=== PATIENT | male | born 1940 | race Caucasian/White ===

== ENCOUNTER 2016-05-06 12:29 | Emergency (ER) | payer MEDICARE, OTHER ==
[2016-05-06] MEDS ORDERED: ASPIRIN 81 MG CHEW TABLET As Ordered ONE (13:42)
[2016-05-06 14:15] LABS: ANION GAP 6 MEQ/L (8-16); BLOOD UREA NITROGEN 16 MG/DL (7-18); CALCIUM LEVEL 8.8 MG/DL (8.8-10.2); CARBON DIOXIDE LEVEL 33 MEQ/L (21-32); CHLORIDE LEVEL 102 MEQ/L (98-107); CREATININE FOR GFR 0.89 MG/DL (0.70-1.30); GLOMERULAR FILTRATION RATE > 60.0 (>42); GLUCOSE, FASTING 103 MG/DL (83-110); POTASSIUM SERUM 3.6 MEQ/L (3.5-5.1); SODIUM LEVEL 141 MEQ/L (136-145)
[2016-05-06 14:23] LABS: MEAN CORPUSCULAR HGB CONC 33.9 g/dl (32.0-36.5); MEAN CORPUSCULAR VOLUME 97.2 fl (80.0-96.0); PLATELET COUNT, AUTOMATED 141 k/mm3 (150-450); RED CELL DISTRIBUTION WIDTH 14.9 % (11.5-14.5); WHITE BLOOD COUNT 7.9 K/mm3 (4.0-10.0)
--- NOTE | 2016-05-06 14:43 | REP ---
PORTABLE CHEST X-RAY: AP semi-erect view. HISTORY: Chest pain. Comparison study November 28, 2015. FINDINGS: There is extensive chronic pleuroparenchymal opacity in the left lower hemithorax with some volume loss unchanged from the November 28, 2015 prior study. Patchy interstitial fibrosis is seen on the right also unchanged. No new infiltrate is seen. Heart is not felt to be enlarged although its left border is difficult to discern. EKG monitoring electrodes are seen. 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 No acute infiltrate seen. Signed by Tao Joshua MD 05/06/2016 03:21 P
[2016-05-06 15:12] LABS: BASOPHILS 1 % (0-4); EOSINOPHILS 2 % (0-5)
[2016-05-06] MEDS ORDERED: CLOPIDOGREL 300 MG TAB (PLAVIX) As Ordered ONE (18:04)
--- NOTE | 2016-05-06 20:27 | EDDOCDS ---
Nurse's Notes [facility] Name: Wai Padron Age: 75 yrs Sex: Male : 1940 Arrival Date: 05/06/2016 Time: 12:29 Bed 20 Private MD: Branden Diagnosis: Unstable angina Presentation: 05/06 12:39 Presenting complaint: Patient states: he has had chest pain since 0 - the pain did kcs not wake him up - had similar pain one week ago and took NTG with relief - called Dr. Mitchell's office today and told to come here. This am took NTG with relief after the 2nd one. 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 Adult Sepsis Screening: The patient does not have new or worsening altered mentation. Patient's respiratory rate is less than 22. Systolic blood pressure is greater than 100. Patient has a qSOFA score of 0- Negative Sepsis Screen. Suicide/Homicide risk assessment- the patient denies having any suicidal and/or homicidal ideations and does not present with any other emotional, behavioral or mental health complaints. Status: Patient is not a visitor services representative or dependent. Transition of care: patient was not received from another setting of care. Red Flag criteria, patient assessed and taken directly to a bed. 12:39 Acuity: DEANGELO Level 2 kcs 12:39 Method Of Arrival: Walkin/Carried/Asstd kcs Triage Assessment: 12:53 General: Appears comfortable, well developed, well nourished, well groomed, Behavior is kcs cooperative, pleasant. Pain: Denies pain. The patient is triaged at the bedside. See Assessment in Nurses Notes section of ED record. Neurological: Level of Consciousness is awake, alert. Cardiovascular: Rhythm is irregular. Respiratory: Airway is patent Respiratory effort is even, unlabored, Respiratory pattern is regular, symmetrical. Derm: Skin is intact, is healthy with good turgor, Skin is dry, Skin is normal. 19:20 Cardiovascular: Chest pain is described as mild, radiates Does not radiate. episodes jf3 are intermittent began 0 today. Historical: - Allergies: ANTONINO INHIBITORS (Cough); Amoxicillin (Unknown); Lipitor (Cough); Protonix (Cough); - Home Meds: 1. ranitidine HCl 300 mg Oral cap 1 cap nightly 2. Cozaar 25 mg Oral tab 1 tab 2 times per day 3. Lasix 20 mg Oral tab 1 tab 3 times per day 4. metformin 750 mg Oral Tb24 1 tab once daily 5. Calcium + Vitamin D 600 mg calcium- 200 unit Oral tab 1200 mg three times a day 6. Vitamin D Oral 2000 unit daily 7. prednisone 10 mg in am and 12.5 mg in evening Oral tab 1 tab once daily 8. sulfamethoxazole-trimethoprim 800-160 mg Oral tab 1 tab friday and friday 9. alprazolam 0.5 mg Oral tab 1 tab twice a day as needed 10. hydrocodone-acetaminophen 5-325 mg Oral tab 1 tab every 4-6 hours as needed 2 tabs 11. ibandronate 150 mg oral tab 1 tab once monthly 12. Spiriva with HandiHaler 18 mcg Inhl CpDv 1 cap once daily 13. Oxygen 2.5 liters daily 14. aspirin 81 mg Oral tab 1 tab once daily 15. Lidoderm 5 % Topical ptmd 1 patch as needed as needed 16. Nasonex 50 mcg/actuation Nasal spry 2 sprays once daily as needed - PMHx: CAD; COPD; Diabetes - NIDDM: controlled; GERD; AR; Osteoporosis; PE; Pneumothorax; - PSHx: achilles tendon repair left leg; Carpal Tunnel Repair- Right; Stents, Coronary; - The history from nurses notes was reviewed: and I agree with what is documented. - Social history: Smoking status: Patient states was never smoker of tobacco. No barriers to communication noted, The patient speaks fluent [place]. - Family history: Not pertinent. - : The pt / caregiver states he / she is not on anticoagulants. Home medication list is obtained from the patient. - Hospitalizations: : No recent hospitalization is reported. - Exposure Risk Screening:: None identified. - Immunization history:: All immunizations up-to-date. - Social history:: the patient is a non-smoker, the patient does not drink alcohol. Screenin:18 Screening information is obtained from the patient. Fall risk: No risks identified. jf3 Assistance ADL's: requires no assistance with activities of daily living. Abuse/DV Screen: The patient / caregiver reports he/she is: not in a situation that causes fear, pain or injury. Nutritional screening: No deficits noted. Advance Directives: Currently, there is a health care proxy, Genevieve Padron, . There is no active DNR order. There is a living will, but a copy is not available at this time. home support is adequate. Assessment: 13:22 Adult Sepsis Screening: The patient does not have new or worsening altered mentation. jf3 Patient's respiratory rate is less than 22. Systolic blood pressure is greater than 100. Patient has a qSOFA score of 0- Negative Sepsis Screen. General: Appears in no apparent distress, comfortable, Behavior is cooperative. Pain: Denies pain. Neurological: Level of Consciousness is awake, alert, Oriented to person, place, time. 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 Respiratory: Airway is patent Respiratory effort is even, unlabored, Respiratory pattern is regular, symmetrical, Breath sounds with crackles bilaterally. in left posterior lower lobe, right posterior middle lobe and right posterior lower lobe Denies shortness of breath. GI: Abdomen is non- distended Bowel sounds present X 4 quads. Abd is soft and non tender X 4 quads. Derm: Skin is normal. 14:30 General: Appears in no apparent distress, comfortable, Behavior is cooperative, Pt jf3 resting supine on stretcher. Respirations easy and unlabored. Denies pain. Will continue to monitor. 15:30 General: Appears in no apparent distress, comfortable, Behavior is cooperative, Pt jf3 resting right side lying on stretcher with SO at bedside. Respirations easy and unlabored. Will continue to monitor. 16:30 General: Appears in no apparent distress, comfortable, Behavior is cooperative, Pt jf3 resting sitting up on stretcher. respirations easy and unlabored. Denies pain. Will continue to monitor. 17:57 General: Appears in no apparent distress, comfortable, Behavior is cooperative. Pain: jf3 Denies pain. Neurological: Level of Consciousness is awake, alert, Oriented to person, place, time. Cardiovascular: Capillary refill < 3 seconds. Respiratory: Airway is patent Respiratory effort is even, unlabored, Respiratory pattern is regular, symmetrical. 19:09 General: Appears in no apparent distress, comfortable, Behavior is cooperative, Pt jf3 ambulated to restroom without difficulty, now sitting up in chair. Respirations easy and unlabored. Denies pain. 20:23 General: Appears in no apparent distress, comfortable, Behavior is cooperative. Pain: jf3 Denies pain. Neurological: Level of Consciousness is awake, alert, Oriented to person, place, time. Cardiovascular: Capillary refill < 3 seconds Chest pain is denied. Respiratory: Airway is patent Respiratory effort is even, unlabored, Respiratory pattern is regular, symmetrical, Denies shortness of breath. Derm: Skin is normal. Vital Signs: 12:31 BP 147 / 84; Pulse 72; Resp 18 S; Temp 96.8(O); Pulse Ox 100% on 4 lpm NC; Weight 98.88 gr2 kg (R); Height 5 ft. 8 in. (172.72 cm) (R); Pain 2/10; 12:39 BP 156 / 85 (auto/); jf3 12:42 Pulse 66 MON; Pulse Ox 98% ; jf3 13:48 Pulse 88 MON; Pulse Ox 97% ; jf3 13:49 BP 161 / 101 (auto/); jf3 14:02 Pulse 68 MON; Pulse Ox 96% ; jf3 14:03 BP 135 / 67 (auto/); jf3 14:18 BP 123 / 76 (auto/); jf3 14:18 Pulse 60 MON; Pulse Ox 98% ; jf3 14:33 BP 118 / 82 (auto/); jf3 14:33 Pulse 58 MON; Pulse Ox 99% ; jf3 14:48 BP 130 / 75 (auto/); jf3 14:48 Pulse 58 MON; Pulse Ox 100% ; jf3 15:03 BP 131 / 69 (auto/); jf3 15:03 Pulse 60 MON; Pulse Ox 99% ; jf3 15:18 BP 137 / 71 (auto/); jf3 15:18 Pulse 60 MON; Pulse Ox 99% ; jf3 15:33 BP 137 / 79 (auto/); jf3 15:34 Pulse 60 MON; Pulse Ox 100% ; jf3 15:48 BP 109 / 60 (auto/); jf3 15:49 Pulse 66 MON; Pulse Ox 99% ; jf3 16:03 BP 104 / 55 (auto/); jf3 16:04 Pulse 64 MON; Pulse Ox 100% ; jf3 16:17 Pulse 60 MON; Pulse Ox 99% ; jf3 16:18 BP 120 / 58 (auto/); jf3 16:33 BP 114 / 58 (auto/); jf3 16:33 Pulse 60 MON; Pulse Ox 99% ; jf3 16:48 BP 118 / 58 (auto/); jf3 16:48 Pulse 64 MON; Pulse Ox 99% ; jf3 17:03 BP 111 / 57 (auto/); jf3 17:05 Pulse 62 MON; Pulse Ox 99% ; jf3 17:18 BP 147 / 84 (auto/); jf3 17:21 Pulse 68 MON; Pulse Ox 98% ; jf3 17:33 BP 138 / 88 (auto/); jf3 17:33 Pulse 64 MON; Pulse Ox 98% ; jf3 17:48 BP 152 / 93 (auto/); jf3 17:48 Pulse 72 MON; Pulse Ox 97% ; jf3 18:03 BP 127 / 74 (auto/); jf3 18:06 Pulse 68 MON; Pulse Ox 95% ; jf3 18:18 BP 168 / 79 (auto/); jf3 18:18 Pulse 72 MON; Pulse Ox 96% ; jf3 18:57 BP 159 / 87 (auto/); jf3 19:00 Pulse 66 MON; Pulse Ox 98% ; jf3 19:03 BP 157 / 76 (auto/); jf3 19:04 Pulse 70 MON; Pulse Ox 98% ; jf3 19:14 BP 152 / 89 (auto/); jf3 19:15 Pulse 66 MON; Pulse Ox 97% ; jf3 19:18 BP 141 / 81 (auto/); jf3 19:19 Pulse 66 MON; Pulse Ox 97% ; jf3 19:32 Pulse 70 MON; Pulse Ox 98% ; jf3 19:33 BP 142 / 81 (auto/); jf3 19:37 Pulse 74 MON; Pulse Ox 97% ; jf3 19:48 BP 148 / 87 (auto/); jf3 20:25 BP 165 / 95; Pulse 76; Resp 18; Temp 96.7(O); Pulse Ox 98% 2 lpm ; Pain 0/10; jf3 12:31 Body Mass Index 33.15 (98.88 kg, 172.72 cm) gr2 Vitals: 12:31 Log In Time: May 06, 2016 at 12:31. RN notified that patient meets Red Flag gr2 criteria. ED Course: 12:31 Patient visited by Hannah Grant. gr2 12:31 Branden is Private Physician. gr2 12:31 Patient moved to Waiting gr2 12:34 Patient visited by Hannah Grant. gr2 12:34 Patient moved to Pre RCE gr2 12:35 Patient moved to 20 kcs 12:42 Triage Initiated kcs 12:48 Patient visited by Tate Rivers PCA. mdr 12:48 EKG done. (by ED staff). Reviewed by Robert CHEUNG. mdr 12:50 Raheel Blood MD is Attending Physician. pc 12:55 defensive secondary coach on. Pulse ox on. NIBP on. kcs 12:55 O2 via nasal cannula \T\ 3L/min. kcs 13:22 The patient / caregiver is instructed regarding the plan of care and ED course. jf3 13:24 Patient visited by Addy Quinn RN. jf3 13:28 Patient visited by Raheel Blood MD. pc 13:30 Inserted saline lock: 20 gauge in left antecubital area by Iman Lance RN. jf3 13:40 Basic Metabolic Profile Sent. mk4 13:40 CBC with Diff Sent. mk4 13:40 Cardiac Injury Profile Sent. mk4 13:40 Troponin Sent. mk4 14:40 Patient visited by Zainab Bradford PCA. ct3 14:49 DIFFERENTIAL NO CHARGE Sent. jf3 14:51 Addy QuinnRN is Primary Nurse. jf3 14:55 portable chest Returned. EDMS 15:22 Patient visited by Addy Quinn RN. jf3 16:04 Patient visited by Addy Quinn RN. jf3 16:25 [facility] Payment Agreement was scanned into [employer] (formerly [employer]) and attached to record. gjb 17:09 Patient visited by Zainab Bradford PCA. ct3 17:58 Patient visited by Addy Quinn RN. jf3 19:11 No procedures done that require assistance. jf3 Administered Medications: 13:45 Drug: Aspirin 324 mg [aspirin 81 mg chewable tablet (4 tabs)] Route: PO; jf3 16:04 Follow up: Response: No Adverse Reaction jf3 18:15 Drug: Plavix - Clopidogrel 300 mg [clopidogrel 75 mg tablet (4 tabs)] Route: PO; jf3 19:21 Follow up: Response: No Adverse Reaction jf3 Order Results: Lab Order: Basic Metabolic Profile; SPEC'M 05/06/16 13:39 Test: GLUCOSE, FASTING; Value: 103; Range: 83-110; Units: MG/DL; Status: F Test: BLOOD UREA NITROGEN; Value: 16; Range: 7-18; Units: MG/DL; Status: F Test: CREATININE FOR GFR; Value: 0.89; Range: 0.70-1.30; Units: MG/DL; Status: F Test: GLOMERULAR FILTRATION RATE; Value: > 60.0; Range: >42; Status: F Test: SODIUM LEVEL; Value: 141; Range: 136-145; Units: MEQ/L; Status: F Test: POTASSIUM SERUM; Value: 3.6; Range: 3.5-5.1; Units: MEQ/L; Status: F Test: CHLORIDE LEVEL; Value: 102; Range: 98-107; Units: MEQ/L; Status: F Test: CARBON DIOXIDE LEVEL; Value: 33; Range: 21-32; Abnormal: Above high normal; Units: MEQ/L; Status: F Test: ANION GAP; Value: 6; Range: 8-16; Abnormal: Below low normal; Units: MEQ/L; Status: F Test: CALCIUM LEVEL; Value: 8.8; Range: 8.8-10.2; Units: MG/DL; Status: F Test Note: ; Units are mL/min/1.73 m2 Chronic Kidney Disease Staging per NKF: Stage I & II GFR >=60 Normal to Mildly Decreased Stage III GFR 30-59 Moderately Decreased Stage IV GFR 15-29 Severely Decreased Stage V GFR <15 Very Little GFR Left ESRD GFR <15 on MUSIC EXECUTIVE Lab Order: CBC with Diff; SPEC'M 05/06/16 13:39 Test: WHITE BLOOD COUNT; Value: 7.9; Range: 4.0-10.0; Units: K/mm3; Status: F Test: RED BLOOD COUNT; Value: 3.57; Range: 4.30-6.10; Abnormal: Below low normal; Units: M/mm3; Status: F Test: HEMOGLOBIN; Value: 11.8; Range: 14.0-18.0; Abnormal: Below low normal; Units: g/dl; Status: F Test: HEMATOCRIT; Value: 34.7; Range: 42.0-52.0; Abnormal: Below low normal; Units: %; Status: F Test: MEAN CORPUSCULAR VOLUME; Value: 97.2; Range: 80.0-96.0; Abnormal: Above high normal; Units: fl; Status: F Test: MEAN CORPUSCULAR HEMOGLOBIN; Value: 33.0; Range: 27.0-33.0; Units: pg; Status: F Test: MEAN CORPUSCULAR HGB CONC; Value: 33.9; Range: 32.0-36.5; Units: g/dl; Status: F Test: RED CELL DISTRIBUTION WIDTH; Value: 14.9; Range: 11.5-14.5; Abnormal: Above high normal; Units: %; Status: F Test: PLATELET COUNT, AUTOMATED; Value: 141; Range: 150-450; Abnormal: Below low normal; Units: k/mm3; Status: F Test: NEUTROPHILS; Value: 59; Range: 35-75; Units: %; Status: F Test: LYMPHOCYTES; Value: 32; Range: 16-52; Units: %; Status: F Test: MONOCYTES; Value: 6; Range: 0-8; Units: %; Status: F Test: EOSINOPHILS; Value: 2; Range: 0-5; Units: %; Status: F Test: BASOPHILS; Value: 1; Range: 0-4; Units: %; Status: F Test: RBC MORPHOLOGY; Value: NORMAL; Status: F Lab Order: Cardiac Injury Profile; SPEC'M 05/06/16 13:39 Test: CPK CREATINE PHOSPHOKINASE; Value: 53; Range: 39-308; Units: U/L; Status: F Test: CK-MB VALUE MASS; Value: 1.3; Range: 0.0-3.6; Units: NG/ML; Status: F Test: MB/CK RELATIVE INDEX; Value: 2.45; Range: < OR =4; Status: F Test Note: ; DIAGNOSIS CRITERIA MMB ng/ml Relative Index (RI) NON-AMI < or = 5 N/A HUYNH ZONE > 5 < or = 4 AMI > 5 > 4 Lab Order: Troponin; SPEC'M 05/06/16 13:39 Test: TROPONIN I; Value: < 0.02; Range: < 0.10; Units: NG/ML; Status: F Test Note: ; Troponin I Reference Interval for [employer] Direct LOCI: 99th Percentile= 0.00-0.045 ng/ml Risk Stratification: <= 0.10 ng/ml Decreased Risk for Adverse Clinical Events. 0.10-1.50 ng/ml Increased Risk for Adverse Clinical Events. Evaluation of additional criterion and/or repeat testing in 2-6 hours is suggested to rule out myocardial damage. >= 1.50 ng/ml Indicative of Myocardial Injury. Lab Order: PLATELET ESTIMATE; SPEC'M 05/06/16 13:39 Test: PLATELET ESTIMATE; Value: NORMAL; Range: NORMAL; Status: F Radiology Order: portable chest Test: portable chest REASON FOR EXAMINATION: Chest Pain; PORTABLE CHEST X-RAY: AP semi-erect view.; ; HISTORY: Chest pain.; ; Comparison study November 28, 2015.; ; FINDINGS: There is extensive chronic pleuroparenchymal opacity in the left lower; hemithorax with some volume loss unchanged from the November 28, 2015 prior study.; Patchy interstitial fibrosis is seen on the right also unchanged. No new; infiltrate is seen. Heart is not felt to be enlarged although its left border is; difficult to discern. 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 Chronic interstitial; fibrosis on the right. No acute infiltrate seen.; ; ; Signed by; Tao Joshua MD 05/06/2016 03:21 P; Outcome: 18:04 ER care complete, transfer ordered by Provider. pc 18:31 Admission hand-off: Report called to Arron Richards \\ [facility]. 3 20:25 Discharge Assessment: patient administered narcotics - no. The following High Risk 3 Discharge criteria are identified: None. Transferred to [facility]. by EMS ground [facility] ambulance report to accompanying personnel Jessa Crespo EM-senior procurement specialistBenjamin EMT-basic, Transfer form completed. x-rays sent w/ patient. Condition: stable. No special radiology studies were completed. Property :Personal belongings accompany Pt. 20:26 Patient left the ED. jf3 Signatures: Dispatcher [employer] EDMS Raheel Blood MD MD pc Sleeman, Kacey RN RN kcs Zainab Bradford, ARTS EDUCATION TEACHER ARTS EDUCATION TEACHER ct3 Hannah Grant gr2 Theresa Lance RN RN mk4 Tate Rivres, ARTS EDUCATION TEACHER ARTS EDUCATION TEACHER mdr Addy Quinn RN RN jf3 Nara Jacob MTDD
--- NOTE | 2016-05-06 20:27 | EDDOCDS ---
Physician Documentation [facility] Name: Wai Padron Age: 75 yrs Sex: Male : 1940 Arrival Date: 05/06/2016 Time: 12:29 Bed 20 Private MD: Branden Disposition: 05/06 17:58 Critical Care: Critical care not applicable. pc Disposition: 05/06/16 18:04 Transfer ordered to [facility]. Diagnosis is Unstable angina. - Reason for transfer: Higher level of care. - Accepting physician is Dr. Swenson. - Condition is Stable. - Problem is new. - Symptoms have improved. HPI: 13:48 This 75 yrs old Male presents to ER via Walkin/Carried/Asstd with complaints pc of Chest Pain. 13:48 The history is obtained from the patient. Symptoms began suddenly at 04:00, and pc resolved. Symptoms have resolved. They lasted for 45 minutes. Symptoms occurred while at rest. noticing when he got up to urinate. He took a total of 2 NTG with full relief, after 45 minutes.. At its worst, the symptoms were a 4 out of 10. In the emergency department, the symptoms has resolved. The chest pain is described as a pressure. It is located primarily in the substernal area. The pain does not radiate. The chest pain was associated with no other symptoms. The patient's known risk factors for coronary artery disease include: a prior history of coronary artery disease. The patient has experienced similar episodes in the past, a few times, with the last episode occurring last week. The patient has not recently seen a physician. Historical: - Allergies: ANTONINO INHIBITORS (Cough); Amoxicillin (Unknown); Lipitor (Cough); Protonix (Cough); - Home Meds: 1. ranitidine HCl 300 mg Oral cap 1 cap nightly 2. Cozaar 25 mg Oral tab 1 tab 2 times per day 3. Lasix 20 mg Oral tab 1 tab 3 times per day 4. metformin 750 mg Oral Tb24 1 tab once daily 5. Calcium + Vitamin D 600 mg calcium- 200 unit Oral tab 1200 mg three times a day 6. Vitamin D Oral 2000 unit daily 7. prednisone 10 mg in am and 12.5 mg in evening Oral tab 1 tab once daily 8. sulfamethoxazole-trimethoprim 800-160 mg Oral tab 1 tab friday and friday 9. alprazolam 0.5 mg Oral tab 1 tab twice a day as needed 10. hydrocodone-acetaminophen 5-325 mg Oral tab 1 tab every 4-6 hours as needed 2 tabs 11. ibandronate 150 mg oral tab 1 tab once monthly 12. Spiriva with HandiHaler 18 mcg Inhl CpDv 1 cap once daily 13. Oxygen 2.5 liters daily 14. aspirin 81 mg Oral tab 1 tab once daily 15. Lidoderm 5 % Topical ptmd 1 patch as needed as needed 16. Nasonex 50 mcg/actuation Nasal spry 2 sprays once daily as needed - PMHx: CAD; COPD; Diabetes - NIDDM: controlled; GERD; [place]; Osteoporosis; PE; Pneumothorax; - PSHx: achilles tendon repair left leg; Carpal Tunnel Repair- Right; Stents, Coronary; - The history from nurses notes was reviewed: and I agree with what is documented. - Social history: Smoking status: Patient states was never smoker of tobacco. No barriers to communication noted, The patient speaks fluent Luxembourger. - Family history: Not pertinent. - : The pt / caregiver states he / she is not on anticoagulants. Home medication list is obtained from the patient. - Hospitalizations: : No recent hospitalization is reported. - Exposure Risk Screening:: None identified. - Immunization history:: All immunizations up-to-date. - Social history:: the patient is a non-smoker, the patient does not drink alcohol. ROS: 13:48 All systems are negative except as listed. The cardiovascular, respiratory, pc gastrointestinal and neurological components are also addressed in the HPI. Exam: 13:54 General Appearance: alert, no acute distress. pc 13:54 ENT: ear, nose and throat normal, pharynx normal. 13:54 Neck: supple, non-tender, no masses are appreciated, no carotid bruits. 13:54 Respiratory: no respiratory distress, Breath sounds: rhonchi, throughout. 13:54 Cardiovascular: regular pulse rate, regular heart rhythm, normal heart sounds, equal and full pulses bilaterally. 13:54 Abdomen: soft, non-tender, no organomegaly, normal bowel sounds. 13:54 Skin: skin color is normal, warm, dry. 13:54 Extremities: The extremities have a grossly normal appearance, are non-tender, without acute ROM abnormalities. 13:54 Neuro: alert, oriented to person, place and time, cranial nerves normal as tested, no motor deficits, no sensory deficits. 13:54 Psych: normal mood. Vital Signs: 12:31 BP 147 / 84; Pulse 72; Resp 18 S; Temp 96.8(O); Pulse Ox 100% on 4 lpm NC; Weight 98.88 gr2 kg / 217.99 lbs (R); Height 5 ft. 8 in. (172.72 cm) (R); Pain 2/10; 12:39 BP 156 / 85 (auto/); jf3 12:42 Pulse 66 MON; Pulse Ox 98% ; jf3 13:48 Pulse 88 MON; Pulse Ox 97% ; jf3 13:49 BP 161 / 101 (auto/); jf3 14:02 Pulse 68 MON; Pulse Ox 96% ; jf3 14:03 BP 135 / 67 (auto/); jf3 14:18 BP 123 / 76 (auto/); jf3 14:18 Pulse 60 MON; Pulse Ox 98% ; jf3 14:33 BP 118 / 82 (auto/); jf3 14:33 Pulse 58 MON; Pulse Ox 99% ; jf3 14:48 BP 130 / 75 (auto/); jf3 14:48 Pulse 58 MON; Pulse Ox 100% ; jf3 15:03 BP 131 / 69 (auto/); jf3 15:03 Pulse 60 MON; Pulse Ox 99% ; jf3 15:18 BP 137 / 71 (auto/); jf3 15:18 Pulse 60 MON; Pulse Ox 99% ; jf3 15:33 BP 137 / 79 (auto/); jf3 15:34 Pulse 60 MON; Pulse Ox 100% ; jf3 15:48 BP 109 / 60 (auto/); jf3 15:49 Pulse 66 MON; Pulse Ox 99% ; jf3 16:03 BP 104 / 55 (auto/); jf3 16:04 Pulse 64 MON; Pulse Ox 100% ; jf3 16:17 Pulse 60 MON; Pulse Ox 99% ; jf3 16:18 BP 120 / 58 (auto/); jf3 16:33 BP 114 / 58 (auto/); jf3 16:33 Pulse 60 MON; Pulse Ox 99% ; jf3 16:48 BP 118 / 58 (auto/); jf3 16:48 Pulse 64 MON; Pulse Ox 99% ; jf3 17:03 BP 111 / 57 (auto/); jf3 17:05 Pulse 62 MON; Pulse Ox 99% ; jf3 17:18 BP 147 / 84 (auto/); jf3 17:21 Pulse 68 MON; Pulse Ox 98% ; jf3 17:33 BP 138 / 88 (auto/); jf3 17:33 Pulse 64 MON; Pulse Ox 98% ; jf3 17:48 BP 152 / 93 (auto/); jf3 17:48 Pulse 72 MON; Pulse Ox 97% ; jf3 18:03 BP 127 / 74 (auto/); jf3 18:06 Pulse 68 MON; Pulse Ox 95% ; jf3 18:18 BP 168 / 79 (auto/); jf3 18:18 Pulse 72 MON; Pulse Ox 96% ; jf3 18:57 BP 159 / 87 (auto/); jf3 19:00 Pulse 66 MON; Pulse Ox 98% ; jf3 19:03 BP 157 / 76 (auto/); jf3 19:04 Pulse 70 MON; Pulse Ox 98% ; jf3 19:14 BP 152 / 89 (auto/); jf3 19:15 Pulse 66 MON; Pulse Ox 97% ; jf3 19:18 BP 141 / 81 (auto/); jf3 19:19 Pulse 66 MON; Pulse Ox 97% ; jf3 19:32 Pulse 70 MON; Pulse Ox 98% ; jf3 19:33 BP 142 / 81 (auto/); jf3 19:37 Pulse 74 MON; Pulse Ox 97% ; jf3 19:48 BP 148 / 87 (auto/); jf3 20:25 BP 165 / 95; Pulse 76; Resp 18; Temp 96.7(O); Pulse Ox 98% 2 lpm ; Pain 0/10; jf3 12:31 Body Mass Index 33.15 (98.88 kg, 172.72 cm) gr2 MDM: 12:33 ECG WITH READING ER PHYS+CARDIAG ordered. EDMS 13:29 Aspirin Chewable Tablet 324 mg PO once ordered. pc 13:29 Finishing Range Feeder/Pulse Ox/q 30 min VS ordered. pc 13:29 IV Saline Lock ordered. pc 13:29 Rhythm Strip to chart ordered. pc 13:30 Basic Metabolic Profile Ordered. EDMS 13:30 CBC with Diff Ordered. EDMS 13:30 Cardiac Injury Profile Ordered. EDMS 13:30 Troponin Ordered. EDMS 13:30 portable chest Ordered. EDMS 13:54 Differential diagnosis: esophagitis, gastroesophageal reflux disease (GERD), stable pc angina, unstable angina. Plan: labs, EKG, CXR. The patient was medicated with aspirin in the Emergency Department. Test interpretation: EKG. 14:25 DIFFERENTIAL NO CHARGE Ordered. EDMS 14:25 PLATELET ESTIMATE Ordered. EDMS 15:35 Financial registration complete. gjb 15:54 Basic Metabolic Profile Reviewed. pc 15:54 CBC with Diff Reviewed. pc 15:54 Cardiac Injury Profile Reviewed. pc 15:54 Troponin Reviewed. pc 15:54 PLATELET ESTIMATE Reviewed. pc 15:54 portable chest Reviewed. pc 16:25 [facility] Payment Agreement was scanned into [employer] and attached to record. gjb 17:55 Plavix - Clopidogrel 300 mg PO once ordered. pc 17:58 Data reviewed: old medical records, vital signs, nurses notes, EKG(s), lab test pc results, all radiology studies and available results. Test interpretation: LAB - all labs as ordered have been reviewed, interpreted and considered in the overall management of the clinical presentation; X-RAY - interpreted by Radiologist and personally reviewed, 1 view chest no acute disease. The patient has been re-examined and re-evaluated. The clinical presentation did not require any ED treatment or interventions. Physician consultation: Dr. Jonah Mitchell regarding patient's condition, and he discussed the case with Dr. Swenson at [facility] and he requests transfer.. 17:58 Physician consultation: Dr. Oswaldo Swenson was contacted at 18:00, regarding patient's pc condition, and he accepts in transfer to [facility] and requests Plavix as given. Disposition: The historical points, examination findings, and any diagnostic results supporting the provided diagnosis, were discussed with the patient or legal guardian. The decision to transfer to the patient to another facility was explained, based on the need for a required specialist that [facility] does not immediately have available. EC:54 Rate is 61 beats/min. Rhythm is regular, Normal Sinus Rhythm with 1st degree heart pc block. QRS [place] is Normal. [place] interval is prolonged at 214 msec. QRS interval is normal. QT interval is normal. No Q waves. T waves are Inverted in leads III, aVF. No ST changes noted. Clinical impression: Normal Sinus Rhythm, Nonspecific ST-T changes, and 1st degree heart block. No change from previous ECG in Aug, 2014. Administered Medications: 13:45 Drug: Aspirin 324 mg [aspirin 81 mg chewable tablet (4 tabs)] Route: PO; jf3 16:04 Follow up: Response: No Adverse Reaction jf3 18:15 Drug: Plavix - Clopidogrel 300 mg [clopidogrel 75 mg tablet (4 tabs)] Route: PO; jf3 19:21 Follow up: Response: No Adverse Reaction jf3 Signatures: Dispatcher [employer] EDRaheel Mcgee MD MD pc Sleeman, Kacey, RN RN [facility] Addy Quinn RN RN Nara Glover The chart was reviewed and I authenticate all verbal orders and agree with the evaluation and treatment provided.Attachments: 16:25 [facility] Payment Agreement magi MTDD
--- NOTE | 2016-05-07 20:38 | ECGEPIP ---
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
--- NOTE | 2016-05-08 21:27 | EDDOCDS ---
Physician Documentation [facility] Name: Wai Padron Age: 75 yrs Sex: Male : 1940 Arrival Date: 05/06/2016 Time: 12:29 Bed 20 Private MD: Branden Disposition: 05/06 17:58 Critical Care: Critical care not applicable. pc Disposition: 05/06/16 18:04 Transfer ordered to [facility]. Diagnosis is Unstable angina. - Reason for transfer: Higher level of care. - Accepting physician is Dr. Swenson. - Condition is Stable. - Problem is new. - Symptoms have improved. HPI: 13:48 This 75 yrs old Male presents to ER via Walkin/Carried/Asstd with complaints pc of Chest Pain. 13:48 The history is obtained from the patient. Symptoms began suddenly at 04:00, and pc resolved. Symptoms have resolved. They lasted for 45 minutes. Symptoms occurred while at rest. noticing when he got up to urinate. He took a total of 2 NTG with full relief, after 45 minutes.. At its worst, the symptoms were a 4 out of 10. In the emergency department, the symptoms has resolved. The chest pain is described as a pressure. It is located primarily in the substernal area. The pain does not radiate. The chest pain was associated with no other symptoms. The patient's known risk factors for coronary artery disease include: a prior history of coronary artery disease. The patient has experienced similar episodes in the past, a few times, with the last episode occurring last week. The patient has not recently seen a physician. Historical: - Allergies: ANTONINO INHIBITORS (Cough); Amoxicillin (Unknown); Lipitor (Cough); Protonix (Cough); - Home Meds: 1. ranitidine HCl 300 mg Oral cap 1 cap nightly 2. Cozaar 25 mg Oral tab 1 tab 2 times per day 3. Lasix 20 mg Oral tab 1 tab 3 times per day 4. metformin 750 mg Oral Tb24 1 tab once daily 5. Calcium + Vitamin D 600 mg calcium- 200 unit Oral tab 1200 mg three times a day 6. Vitamin D Oral 2000 unit daily 7. prednisone 10 mg in am and 12.5 mg in evening Oral tab 1 tab once daily 8. sulfamethoxazole-trimethoprim 800-160 mg Oral tab 1 tab friday and friday 9. alprazolam 0.5 mg Oral tab 1 tab twice a day as needed 10. hydrocodone-acetaminophen 5-325 mg Oral tab 1 tab every 4-6 hours as needed 2 tabs 11. ibandronate 150 mg oral tab 1 tab once monthly 12. Spiriva with HandiHaler 18 mcg Inhl CpDv 1 cap once daily 13. Oxygen 2.5 liters daily 14. aspirin 81 mg Oral tab 1 tab once daily 15. Lidoderm 5 % Topical ptmd 1 patch as needed as needed 16. Nasonex 50 mcg/actuation Nasal spry 2 sprays once daily as needed - PMHx: CAD; COPD; Diabetes - NIDDM: controlled; GERD; [place]; Osteoporosis; PE; Pneumothorax; - PSHx: achilles tendon repair left leg; Carpal Tunnel Repair- Right; Stents, Coronary; - The history from nurses notes was reviewed: and I agree with what is documented. - Social history: Smoking status: Patient states was never smoker of tobacco. No barriers to communication noted, The patient speaks fluent Maldivian. - Family history: Not pertinent. - : The pt / caregiver states he / she is not on anticoagulants. Home medication list is obtained from the patient. - Hospitalizations: : No recent hospitalization is reported. - Exposure Risk Screening:: None identified. - Immunization history:: All immunizations up-to-date. - Social history:: the patient is a non-smoker, the patient does not drink alcohol. ROS: 13:48 All systems are negative except as listed. The cardiovascular, respiratory, pc gastrointestinal and neurological components are also addressed in the HPI. Exam: 13:54 General Appearance: alert, no acute distress. pc 13:54 ENT: ear, nose and throat normal, pharynx normal. 13:54 Neck: supple, non-tender, no masses are appreciated, no carotid bruits. 13:54 Respiratory: no respiratory distress, Breath sounds: rhonchi, throughout. 13:54 Cardiovascular: regular pulse rate, regular heart rhythm, normal heart sounds, equal and full pulses bilaterally. 13:54 Abdomen: soft, non-tender, no organomegaly, normal bowel sounds. 13:54 Skin: skin color is normal, warm, dry. 13:54 Extremities: The extremities have a grossly normal appearance, are non-tender, without acute ROM abnormalities. 13:54 Neuro: alert, oriented to person, place and time, cranial nerves normal as tested, no motor deficits, no sensory deficits. 13:54 Psych: normal mood. Vital Signs: 12:31 BP 147 / 84; Pulse 72; Resp 18 S; Temp 96.8(O); Pulse Ox 100% on 4 lpm NC; Weight 98.88 gr2 kg / 217.99 lbs (R); Height 5 ft. 8 in. (172.72 cm) (R); Pain 2/10; 12:39 BP 156 / 85 (auto/); jf3 12:42 Pulse 66 MON; Pulse Ox 98% ; jf3 13:48 Pulse 88 MON; Pulse Ox 97% ; jf3 13:49 BP 161 / 101 (auto/); jf3 14:02 Pulse 68 MON; Pulse Ox 96% ; jf3 14:03 BP 135 / 67 (auto/); jf3 14:18 BP 123 / 76 (auto/); jf3 14:18 Pulse 60 MON; Pulse Ox 98% ; jf3 14:33 BP 118 / 82 (auto/); jf3 14:33 Pulse 58 MON; Pulse Ox 99% ; jf3 14:48 BP 130 / 75 (auto/); jf3 14:48 Pulse 58 MON; Pulse Ox 100% ; jf3 15:03 BP 131 / 69 (auto/); jf3 15:03 Pulse 60 MON; Pulse Ox 99% ; jf3 15:18 BP 137 / 71 (auto/); jf3 15:18 Pulse 60 MON; Pulse Ox 99% ; jf3 15:33 BP 137 / 79 (auto/); jf3 15:34 Pulse 60 MON; Pulse Ox 100% ; jf3 15:48 BP 109 / 60 (auto/); jf3 15:49 Pulse 66 MON; Pulse Ox 99% ; jf3 16:03 BP 104 / 55 (auto/); jf3 16:04 Pulse 64 MON; Pulse Ox 100% ; jf3 16:17 Pulse 60 MON; Pulse Ox 99% ; jf3 16:18 BP 120 / 58 (auto/); jf3 16:33 BP 114 / 58 (auto/); jf3 16:33 Pulse 60 MON; Pulse Ox 99% ; jf3 16:48 BP 118 / 58 (auto/); jf3 16:48 Pulse 64 MON; Pulse Ox 99% ; jf3 17:03 BP 111 / 57 (auto/); jf3 17:05 Pulse 62 MON; Pulse Ox 99% ; jf3 17:18 BP 147 / 84 (auto/); jf3 17:21 Pulse 68 MON; Pulse Ox 98% ; jf3 17:33 BP 138 / 88 (auto/); jf3 17:33 Pulse 64 MON; Pulse Ox 98% ; jf3 17:48 BP 152 / 93 (auto/); jf3 17:48 Pulse 72 MON; Pulse Ox 97% ; jf3 18:03 BP 127 / 74 (auto/); jf3 18:06 Pulse 68 MON; Pulse Ox 95% ; jf3 18:18 BP 168 / 79 (auto/); jf3 18:18 Pulse 72 MON; Pulse Ox 96% ; jf3 18:57 BP 159 / 87 (auto/); jf3 19:00 Pulse 66 MON; Pulse Ox 98% ; jf3 19:03 BP 157 / 76 (auto/); jf3 19:04 Pulse 70 MON; Pulse Ox 98% ; jf3 19:14 BP 152 / 89 (auto/); jf3 19:15 Pulse 66 MON; Pulse Ox 97% ; jf3 19:18 BP 141 / 81 (auto/); jf3 19:19 Pulse 66 MON; Pulse Ox 97% ; jf3 19:32 Pulse 70 MON; Pulse Ox 98% ; jf3 19:33 BP 142 / 81 (auto/); jf3 19:37 Pulse 74 MON; Pulse Ox 97% ; jf3 19:48 BP 148 / 87 (auto/); jf3 20:25 BP 165 / 95; Pulse 76; Resp 18; Temp 96.7(O); Pulse Ox 98% 2 lpm ; Pain 0/10; jf3 12:31 Body Mass Index 33.15 (98.88 kg, 172.72 cm) gr2 MDM: 12:33 ECG WITH READING ER PHYS+CARDIAG ordered. EDMS 13:29 Aspirin Chewable Tablet 324 mg PO once ordered. pc 13:29 Maintenance Person/Pulse Ox/q 30 min VS ordered. pc 13:29 IV Saline Lock ordered. pc 13:29 Rhythm Strip to chart ordered. pc 13:30 Basic Metabolic Profile Ordered. EDMS 13:30 CBC with Diff Ordered. EDMS 13:30 Cardiac Injury Profile Ordered. EDMS 13:30 Troponin Ordered. EDMS 13:30 portable chest Ordered. EDMS 13:54 Differential diagnosis: esophagitis, gastroesophageal reflux disease (GERD), stable pc angina, unstable angina. Plan: labs, EKG, CXR. The patient was medicated with aspirin in the Emergency Department. Test interpretation: EKG. 14:25 DIFFERENTIAL NO CHARGE Ordered. EDMS 14:25 PLATELET ESTIMATE Ordered. EDMS 15:35 Financial registration complete. gjb 15:54 Basic Metabolic Profile Reviewed. pc 15:54 CBC with Diff Reviewed. pc 15:54 Cardiac Injury Profile Reviewed. pc 15:54 Troponin Reviewed. pc 15:54 PLATELET ESTIMATE Reviewed. pc 15:54 portable chest Reviewed. pc 16:25 [facility] Payment Agreement was scanned into [employer] and attached to record. gjb 17:55 Plavix - Clopidogrel 300 mg PO once ordered. pc 17:58 Data reviewed: old medical records, vital signs, nurses notes, EKG(s), lab test pc results, all radiology studies and available results. Test interpretation: LAB - all labs as ordered have been reviewed, interpreted and considered in the overall management of the clinical presentation; X-RAY - interpreted by Radiologist and personally reviewed, 1 view chest no acute disease. The patient has been re-examined and re-evaluated. The clinical presentation did not require any ED treatment or interventions. Physician consultation: Dr. Jonah Mitchell regarding patient's condition, and he discussed the case with Dr. Swenson at [facility] and he requests transfer.. 17:58 Physician consultation: Dr. Oswaldo Swenson was contacted at 18:00, regarding patient's pc condition, and he accepts in transfer to [facility] and requests Plavix as given. Disposition: The historical points, examination findings, and any diagnostic results supporting the provided diagnosis, were discussed with the patient or legal guardian. The decision to transfer to the patient to another facility was explained, based on the need for a required specialist that [facility] does not immediately have available. 05/07 10:04 ECG/EKG was scanned into [employer] and attached to record. gb EC/30 13:54 Rate is 61 beats/min. Rhythm is regular, Normal Sinus Rhythm with 1st degree heart pc block. QRS [place] is Normal. [place] interval is prolonged at 214 msec. QRS interval is normal. QT interval is normal. No Q waves. T waves are Inverted in leads III, aVF. No ST changes noted. Clinical impression: Normal Sinus Rhythm, Nonspecific ST-T changes, and 1st degree heart block. No change from previous ECG in Aug, 2014. Administered Medications: 13:45 Drug: Aspirin 324 mg [aspirin 81 mg chewable tablet (4 tabs)] Route: PO; jf3 16:04 Follow up: Response: No Adverse Reaction jf3 18:15 Drug: Plavix - Clopidogrel 300 mg [clopidogrel 75 mg tablet (4 tabs)] Route: PO; jf3 19:21 Follow up: Response: No Adverse Reaction jf3 Signatures: Dispatcher [employer] EDMS Raheel Blood MD MD pc Sleeman, Kacey RN RN Ariadne Piper Reg Reg gb Farman, Justin, RN RN jf3 Beck, Gabriela gjb The chart was reviewed and I authenticate all verbal orders and agree with the evaluation and treatment provided.Attachments: 16:25 [facility] Payment Agreement gjb 05/07 10:04 ECG/EKG Chart Complete MTDD
--- NOTE | 2016-05-08 21:27 | EDDOCDS ---
Physician Documentation [facility] Name: Wai Padron Age: 75 yrs Sex: Male : 1940 Arrival Date: 05/06/2016 Time: 12:29 Bed 20 Private MD: Branden Disposition: 05/06 17:58 Critical Care: Critical care not applicable. pc Disposition: 05/06/16 18:04 Transfer ordered to [facility]. Diagnosis is Unstable angina. - Reason for transfer: Higher level of care. - Accepting physician is Dr. Swenson. - Condition is Stable. - Problem is new. - Symptoms have improved. HPI: 13:48 This 75 yrs old Male presents to ER via Walkin/Carried/Asstd with complaints pc of Chest Pain. 13:48 The history is obtained from the patient. Symptoms began suddenly at 04:00, and pc resolved. Symptoms have resolved. They lasted for 45 minutes. Symptoms occurred while at rest. noticing when he got up to urinate. He took a total of 2 NTG with full relief, after 45 minutes.. At its worst, the symptoms were a 4 out of 10. In the emergency department, the symptoms has resolved. The chest pain is described as a pressure. It is located primarily in the substernal area. The pain does not radiate. The chest pain was associated with no other symptoms. The patient's known risk factors for coronary artery disease include: a prior history of coronary artery disease. The patient has experienced similar episodes in the past, a few times, with the last episode occurring last week. The patient has not recently seen a physician. Historical: - Allergies: ANTONINO INHIBITORS (Cough); Amoxicillin (Unknown); Lipitor (Cough); Protonix (Cough); - Home Meds: 1. ranitidine HCl 300 mg Oral cap 1 cap nightly 2. Cozaar 25 mg Oral tab 1 tab 2 times per day 3. Lasix 20 mg Oral tab 1 tab 3 times per day 4. metformin 750 mg Oral Tb24 1 tab once daily 5. Calcium + Vitamin D 600 mg calcium- 200 unit Oral tab 1200 mg three times a day 6. Vitamin D Oral 2000 unit daily 7. prednisone 10 mg in am and 12.5 mg in evening Oral tab 1 tab once daily 8. sulfamethoxazole-trimethoprim 800-160 mg Oral tab 1 tab friday and friday 9. alprazolam 0.5 mg Oral tab 1 tab twice a day as needed 10. hydrocodone-acetaminophen 5-325 mg Oral tab 1 tab every 4-6 hours as needed 2 tabs 11. ibandronate 150 mg oral tab 1 tab once monthly 12. Spiriva with HandiHaler 18 mcg Inhl CpDv 1 cap once daily 13. Oxygen 2.5 liters daily 14. aspirin 81 mg Oral tab 1 tab once daily 15. Lidoderm 5 % Topical ptmd 1 patch as needed as needed 16. Nasonex 50 mcg/actuation Nasal spry 2 sprays once daily as needed - PMHx: CAD; COPD; Diabetes - NIDDM: controlled; GERD; VT; Osteoporosis; PE; Pneumothorax; - PSHx: achilles tendon repair left leg; Carpal Tunnel Repair- Right; Stents, Coronary; - The history from nurses notes was reviewed: and I agree with what is documented. - Social history: Smoking status: Patient states was never smoker of tobacco. No barriers to communication noted, The patient speaks fluent [place]. - Family history: Not pertinent. - : The pt / caregiver states he / she is not on anticoagulants. Home medication list is obtained from the patient. - Hospitalizations: : No recent hospitalization is reported. - Exposure Risk Screening:: None identified. - Immunization history:: All immunizations up-to-date. - Social history:: the patient is a non-smoker, the patient does not drink alcohol. ROS: 13:48 All systems are negative except as listed. The cardiovascular, respiratory, pc gastrointestinal and neurological components are also addressed in the HPI. Exam: 13:54 General Appearance: alert, no acute distress. pc 13:54 ENT: ear, nose and throat normal, pharynx normal. 13:54 Neck: supple, non-tender, no masses are appreciated, no carotid bruits. 13:54 Respiratory: no respiratory distress, Breath sounds: rhonchi, throughout. 13:54 Cardiovascular: regular pulse rate, regular heart rhythm, normal heart sounds, equal and full pulses bilaterally. 13:54 Abdomen: soft, non-tender, no organomegaly, normal bowel sounds. 13:54 Skin: skin color is normal, warm, dry. 13:54 Extremities: The extremities have a grossly normal appearance, are non-tender, without acute ROM abnormalities. 13:54 Neuro: alert, oriented to person, place and time, cranial nerves normal as tested, no motor deficits, no sensory deficits. 13:54 Psych: normal mood. Vital Signs: 12:31 BP 147 / 84; Pulse 72; Resp 18 S; Temp 96.8(O); Pulse Ox 100% on 4 lpm NC; Weight 98.88 gr2 kg / 217.99 lbs (R); Height 5 ft. 8 in. (172.72 cm) (R); Pain 2/10; 12:39 BP 156 / 85 (auto/); jf3 12:42 Pulse 66 MON; Pulse Ox 98% ; jf3 13:48 Pulse 88 MON; Pulse Ox 97% ; jf3 13:49 BP 161 / 101 (auto/); jf3 14:02 Pulse 68 MON; Pulse Ox 96% ; jf3 14:03 BP 135 / 67 (auto/); jf3 14:18 BP 123 / 76 (auto/); jf3 14:18 Pulse 60 MON; Pulse Ox 98% ; jf3 14:33 BP 118 / 82 (auto/); jf3 14:33 Pulse 58 MON; Pulse Ox 99% ; jf3 14:48 BP 130 / 75 (auto/); jf3 14:48 Pulse 58 MON; Pulse Ox 100% ; jf3 15:03 BP 131 / 69 (auto/); jf3 15:03 Pulse 60 MON; Pulse Ox 99% ; jf3 15:18 BP 137 / 71 (auto/); jf3 15:18 Pulse 60 MON; Pulse Ox 99% ; jf3 15:33 BP 137 / 79 (auto/); jf3 15:34 Pulse 60 MON; Pulse Ox 100% ; jf3 15:48 BP 109 / 60 (auto/); jf3 15:49 Pulse 66 MON; Pulse Ox 99% ; jf3 16:03 BP 104 / 55 (auto/); jf3 16:04 Pulse 64 MON; Pulse Ox 100% ; jf3 16:17 Pulse 60 MON; Pulse Ox 99% ; jf3 16:18 BP 120 / 58 (auto/); jf3 16:33 BP 114 / 58 (auto/); jf3 16:33 Pulse 60 MON; Pulse Ox 99% ; jf3 16:48 BP 118 / 58 (auto/); jf3 16:48 Pulse 64 MON; Pulse Ox 99% ; jf3 17:03 BP 111 / 57 (auto/); jf3 17:05 Pulse 62 MON; Pulse Ox 99% ; jf3 17:18 BP 147 / 84 (auto/); jf3 17:21 Pulse 68 MON; Pulse Ox 98% ; jf3 17:33 BP 138 / 88 (auto/); jf3 17:33 Pulse 64 MON; Pulse Ox 98% ; jf3 17:48 BP 152 / 93 (auto/); jf3 17:48 Pulse 72 MON; Pulse Ox 97% ; jf3 18:03 BP 127 / 74 (auto/); jf3 18:06 Pulse 68 MON; Pulse Ox 95% ; jf3 18:18 BP 168 / 79 (auto/); jf3 18:18 Pulse 72 MON; Pulse Ox 96% ; jf3 18:57 BP 159 / 87 (auto/); jf3 19:00 Pulse 66 MON; Pulse Ox 98% ; jf3 19:03 BP 157 / 76 (auto/); jf3 19:04 Pulse 70 MON; Pulse Ox 98% ; jf3 19:14 BP 152 / 89 (auto/); jf3 19:15 Pulse 66 MON; Pulse Ox 97% ; jf3 19:18 BP 141 / 81 (auto/); jf3 19:19 Pulse 66 MON; Pulse Ox 97% ; jf3 19:32 Pulse 70 MON; Pulse Ox 98% ; jf3 19:33 BP 142 / 81 (auto/); jf3 19:37 Pulse 74 MON; Pulse Ox 97% ; jf3 19:48 BP 148 / 87 (auto/); jf3 20:25 BP 165 / 95; Pulse 76; Resp 18; Temp 96.7(O); Pulse Ox 98% 2 lpm ; Pain 0/10; jf3 12:31 Body Mass Index 33.15 (98.88 kg, 172.72 cm) gr2 MDM: 12:33 ECG WITH READING ER PHYS+CARDIAG ordered. EDMS 13:29 Aspirin Chewable Tablet 324 mg PO once ordered. pc 13:29 Manager Of Quality/Pulse Ox/q 30 min VS ordered. pc 13:29 IV Saline Lock ordered. pc 13:29 Rhythm Strip to chart ordered. pc 13:30 Basic Metabolic Profile Ordered. EDMS 13:30 CBC with Diff Ordered. EDMS 13:30 Cardiac Injury Profile Ordered. EDMS 13:30 Troponin Ordered. EDMS 13:30 portable chest Ordered. EDMS 13:54 Differential diagnosis: esophagitis, gastroesophageal reflux disease (GERD), stable pc angina, unstable angina. Plan: labs, EKG, CXR. The patient was medicated with aspirin in the Emergency Department. Test interpretation: EKG. 14:25 DIFFERENTIAL NO CHARGE Ordered. EDMS 14:25 PLATELET ESTIMATE Ordered. EDMS 15:35 Financial registration complete. gjb 15:54 Basic Metabolic Profile Reviewed. pc 15:54 CBC with Diff Reviewed. pc 15:54 Cardiac Injury Profile Reviewed. pc 15:54 Troponin Reviewed. pc 15:54 PLATELET ESTIMATE Reviewed. pc 15:54 portable chest Reviewed. pc 16:25 [facility] [place] Agreement was scanned into [employer] and attached to record. gjb 17:55 Plavix - Clopidogrel 300 mg PO once ordered. pc 17:58 Data reviewed: old medical records, vital signs, nurses notes, EKG(s), lab test pc results, all radiology studies and available results. Test interpretation: LAB - all labs as ordered have been reviewed, interpreted and considered in the overall management of the clinical presentation; X-RAY - interpreted by Radiologist and personally reviewed, 1 view chest no acute disease. The patient has been re-examined and re-evaluated. The clinical presentation did not require any ED treatment or interventions. Physician consultation: Dr. Jonah Mitchell regarding patient's condition, and he discussed the case with Dr. Swenson at [facility] and he requests transfer.. 17:58 Physician consultation: Dr. Oswaldo Swenson was contacted at 18:00, regarding patient's pc condition, and he accepts in transfer to [facility] and requests Plavix as given. Disposition: The historical points, examination findings, and any diagnostic results supporting the provided diagnosis, were discussed with the patient or legal guardian. The decision to transfer to the patient to another facility was explained, based on the need for a required specialist that [facility] does not immediately have available. 05/07 10:04 ECG/EKG was scanned into [employer] and attached to record. gb EC/30 13:54 Rate is 61 beats/min. Rhythm is regular, Normal Sinus Rhythm with 1st degree heart pc block. QRS Spencer is Normal. CT interval is prolonged at 214 msec. QRS interval is normal. QT interval is normal. No Q waves. T waves are Inverted in leads III, aVF. No ST changes noted. Clinical impression: Normal Sinus Rhythm, Nonspecific ST-T changes, and 1st degree heart block. No change from previous ECG in Aug, 2014. Administered Medications: 13:45 Drug: Aspirin 324 mg [aspirin 81 mg chewable tablet (4 tabs)] Route: PO; jf3 16:04 Follow up: Response: No Adverse Reaction jf3 18:15 Drug: Plavix - Clopidogrel 300 mg [clopidogrel 75 mg tablet (4 tabs)] Route: PO; jf3 19:21 Follow up: Response: No Adverse Reaction jf3 Signatures: Dispatcher [employer] EDMS Raheel Blood MD MD pc Sleeman, Kacey RN RN Ariadne Piper Reg Reg gb Farman, Justin, RN RN jf3 Beck, Gabriela gjb The chart was reviewed and I authenticate all verbal orders and agree with the evaluation and treatment provided.Attachments: 16:25 [facility] Payment Agreement gjb 05/07 10:04 ECG/EKG Chart Complete MTDD
--- NOTE | 2016-05-08 21:27 | EDDOCDS ---
Nurse's Notes [facility] Name: Sandee Valle Age: 75 yrs Sex: Male : 1940 Arrival Date: 05/06/2016 Time: 12:29 Bed 20 Private MD: Branden Diagnosis: Unstable angina Presentation: 05/06 12:39 Presenting complaint: Patient states: he has had chest pain since 0 - the pain did kcs not wake him up - had similar pain one week ago and took NTG with relief - called Dr. Mitchell's office today and told to come here. This am took NTG with relief after the 2nd one. Aspirin was taken CARD MOUNTER. Adult Sepsis Screening: The patient does not have new or worsening altered mentation. Patient's respiratory rate is less than 22. Systolic blood pressure is greater than 100. Patient has a qSOFA score of 0- Negative Sepsis Screen. Suicide/Homicide risk assessment- the patient denies having any suicidal and/or homicidal ideations and does not present with any other emotional, behavioral or mental health complaints. Status: Patient is not a support services manager or dependent. Transition of care: patient was not received from another setting of care. Red Flag criteria, patient assessed and taken directly to a bed. 12:39 Acuity: DEANGELO Level 2 kcs 12:39 Method Of Arrival: Walkin/Carried/Asstd kcs Triage Assessment: 12:53 General: Appears comfortable, well developed, well nourished, well groomed, Behavior is kcs cooperative, pleasant. Pain: Denies pain. The patient is triaged at the bedside. See Assessment in Nurses Notes section of ED record. Neurological: Level of Consciousness is awake, alert. Cardiovascular: Rhythm is irregular. Respiratory: Airway is patent Respiratory effort is even, unlabored, Respiratory pattern is regular, symmetrical. Derm: Skin is intact, is healthy with good turgor, Skin is dry, Skin is normal. 19:20 Cardiovascular: Chest pain is described as mild, radiates Does not radiate. episodes jf3 are intermittent began 0 today. Historical: - Allergies: ANTONINO INHIBITORS (Cough); Amoxicillin (Unknown); Lipitor (Cough); Protonix (Cough); - Home Meds: 1. ranitidine HCl 300 mg Oral cap 1 cap nightly 2. Cozaar 25 mg Oral tab 1 tab 2 times per day 3. Lasix 20 mg Oral tab 1 tab 3 times per day 4. metformin 750 mg Oral Tb24 1 tab once daily 5. Calcium + Vitamin D 600 mg calcium- 200 unit Oral tab 1200 mg three times a day 6. Vitamin D Oral 2000 unit daily 7. prednisone 10 mg in am and 12.5 mg in evening Oral tab 1 tab once daily 8. sulfamethoxazole-trimethoprim 800-160 mg Oral tab 1 tab friday and friday 9. alprazolam 0.5 mg Oral tab 1 tab twice a day as needed 10. hydrocodone-acetaminophen 5-325 mg Oral tab 1 tab every 4-6 hours as needed 2 tabs 11. ibandronate 150 mg oral tab 1 tab once monthly 12. Spiriva with HandiHaler 18 mcg Inhl CpDv 1 cap once daily 13. Oxygen 2.5 liters daily 14. aspirin 81 mg Oral tab 1 tab once daily 15. Lidoderm 5 % Topical ptmd 1 patch as needed as needed 16. Nasonex 50 mcg/actuation Nasal spry 2 sprays once daily as needed - PMHx: CAD; COPD; Diabetes - NIDDM: controlled; GERD; OH; Osteoporosis; PE; Pneumothorax; - PSHx: achilles tendon repair left leg; Carpal Tunnel Repair- Right; Stents, Coronary; - The history from nurses notes was reviewed: and I agree with what is documented. - Social history: Smoking status: Patient states was never smoker of tobacco. No barriers to communication noted, The patient speaks fluent French. - Family history: Not pertinent. - : The pt / caregiver states he / she is not on anticoagulants. Home medication list is obtained from the patient. - Hospitalizations: : No recent hospitalization is reported. - Exposure Risk Screening:: None identified. - Immunization history:: All immunizations up-to-date. - Social history:: the patient is a non-smoker, the patient does not drink alcohol. Screenin:18 Screening information is obtained from the patient. Fall risk: No risks identified. jf3 Assistance ADL's: requires no assistance with activities of daily living. Abuse/DV Screen: The patient / caregiver reports he/she is: not in a situation that causes fear, pain or injury. Nutritional screening: No deficits noted. Advance Directives: Currently, there is a health care proxy, Genevieve Valle, . There is no active DNR order. There is a living will, but a copy is not available at this time. home support is adequate. Assessment: 13:22 Adult Sepsis Screening: The patient does not have new or worsening altered mentation. jf3 Patient's respiratory rate is less than 22. Systolic blood pressure is greater than 100. Patient has a qSOFA score of 0- Negative Sepsis Screen. General: Appears in no apparent distress, comfortable, Behavior is cooperative. Pain: Denies pain. Neurological: Level of Consciousness is awake, alert, Oriented to person, place, time. Cardiovascular: Capillary refill < 3 seconds Heart tones S1 S2 present Chest pain is denied had CP CARD MOUNTER that was relieved with NTG x2 doses. Respiratory: Airway is patent Respiratory effort is even, unlabored, Respiratory pattern is regular, symmetrical, Breath sounds with crackles bilaterally. in left posterior lower lobe, right posterior middle lobe and right posterior lower lobe Denies shortness of breath. GI: Abdomen is non- distended Bowel sounds present X 4 quads. Abd is soft and non tender X 4 quads. Derm: Skin is normal. 14:30 General: Appears in no apparent distress, comfortable, Behavior is cooperative, Pt jf3 resting supine on stretcher. Respirations easy and unlabored. Denies pain. Will continue to monitor. 15:30 General: Appears in no apparent distress, comfortable, Behavior is cooperative, Pt jf3 resting right side lying on stretcher with SO at bedside. Respirations easy and unlabored. Will continue to monitor. 16:30 General: Appears in no apparent distress, comfortable, Behavior is cooperative, Pt jf3 resting sitting up on stretcher. respirations easy and unlabored. Denies pain. Will continue to monitor. 17:57 General: Appears in no apparent distress, comfortable, Behavior is cooperative. Pain: jf3 Denies pain. Neurological: Level of Consciousness is awake, alert, Oriented to person, place, time. Cardiovascular: Capillary refill < 3 seconds. Respiratory: Airway is patent Respiratory effort is even, unlabored, Respiratory pattern is regular, symmetrical. 19:09 General: Appears in no apparent distress, comfortable, Behavior is cooperative, Pt jf3 ambulated to restroom without difficulty, now sitting up in chair. Respirations easy and unlabored. Denies pain. 20:23 General: Appears in no apparent distress, comfortable, Behavior is cooperative. Pain: jf3 Denies pain. Neurological: Level of Consciousness is awake, alert, Oriented to person, place, time. Cardiovascular: Capillary refill < 3 seconds Chest pain is denied. Respiratory: Airway is patent Respiratory effort is even, unlabored, Respiratory pattern is regular, symmetrical, Denies shortness of breath. Derm: Skin is normal. Vital Signs: 12:31 BP 147 / 84; Pulse 72; Resp 18 S; Temp 96.8(O); Pulse Ox 100% on 4 lpm NC; Weight 98.88 gr2 kg (R); Height 5 ft. 8 in. (172.72 cm) (R); Pain 2/10; 12:39 BP 156 / 85 (auto/); jf3 12:42 Pulse 66 MON; Pulse Ox 98% ; jf3 13:48 Pulse 88 MON; Pulse Ox 97% ; jf3 13:49 BP 161 / 101 (auto/); jf3 14:02 Pulse 68 MON; Pulse Ox 96% ; jf3 14:03 BP 135 / 67 (auto/); jf3 14:18 BP 123 / 76 (auto/); jf3 14:18 Pulse 60 MON; Pulse Ox 98% ; jf3 14:33 BP 118 / 82 (auto/); jf3 14:33 Pulse 58 MON; Pulse Ox 99% ; jf3 14:48 BP 130 / 75 (auto/); jf3 14:48 Pulse 58 MON; Pulse Ox 100% ; jf3 15:03 BP 131 / 69 (auto/); jf3 15:03 Pulse 60 MON; Pulse Ox 99% ; jf3 15:18 BP 137 / 71 (auto/); jf3 15:18 Pulse 60 MON; Pulse Ox 99% ; jf3 15:33 BP 137 / 79 (auto/); jf3 15:34 Pulse 60 MON; Pulse Ox 100% ; jf3 15:48 BP 109 / 60 (auto/); jf3 15:49 Pulse 66 MON; Pulse Ox 99% ; jf3 16:03 BP 104 / 55 (auto/); jf3 16:04 Pulse 64 MON; Pulse Ox 100% ; jf3 16:17 Pulse 60 MON; Pulse Ox 99% ; jf3 16:18 BP 120 / 58 (auto/); jf3 16:33 BP 114 / 58 (auto/); jf3 16:33 Pulse 60 MON; Pulse Ox 99% ; jf3 16:48 BP 118 / 58 (auto/); jf3 16:48 Pulse 64 MON; Pulse Ox 99% ; jf3 17:03 BP 111 / 57 (auto/); jf3 17:05 Pulse 62 MON; Pulse Ox 99% ; jf3 17:18 BP 147 / 84 (auto/); jf3 17:21 Pulse 68 MON; Pulse Ox 98% ; jf3 17:33 BP 138 / 88 (auto/); jf3 17:33 Pulse 64 MON; Pulse Ox 98% ; jf3 17:48 BP 152 / 93 (auto/); jf3 17:48 Pulse 72 MON; Pulse Ox 97% ; jf3 18:03 BP 127 / 74 (auto/); jf3 18:06 Pulse 68 MON; Pulse Ox 95% ; jf3 18:18 BP 168 / 79 (auto/); jf3 18:18 Pulse 72 MON; Pulse Ox 96% ; jf3 18:57 BP 159 / 87 (auto/); jf3 19:00 Pulse 66 MON; Pulse Ox 98% ; jf3 19:03 BP 157 / 76 (auto/); jf3 19:04 Pulse 70 MON; Pulse Ox 98% ; jf3 19:14 BP 152 / 89 (auto/); jf3 19:15 Pulse 66 MON; Pulse Ox 97% ; jf3 19:18 BP 141 / 81 (auto/); jf3 19:19 Pulse 66 MON; Pulse Ox 97% ; jf3 19:32 Pulse 70 MON; Pulse Ox 98% ; jf3 19:33 BP 142 / 81 (auto/); jf3 19:37 Pulse 74 MON; Pulse Ox 97% ; jf3 19:48 BP 148 / 87 (auto/); jf3 20:25 BP 165 / 95; Pulse 76; Resp 18; Temp 96.7(O); Pulse Ox 98% 2 lpm ; Pain 0/10; jf3 12:31 Body Mass Index 33.15 (98.88 kg, 172.72 cm) gr2 Vitals: 12:31 Log In Time: May 06, 2016 at 12:31. RN notified that patient meets Red Flag gr2 criteria. ED Course: 12:31 Patient visited by Hannah Grant. gr2 12:31 Branden is Private Physician. gr2 12:31 Patient moved to Waiting gr2 12:34 Patient visited by Hannah Grant. gr2 12:34 Patient moved to Pre RCE gr2 12:35 Patient moved to 20 kcs 12:42 Triage Initiated kcs 12:48 Patient visited by Tate Rivers PCA. mdr 12:48 EKG done. (by ED staff). Reviewed by Robert CHEUNG. mdr 12:50 Raheel Blood MD is Attending Physician. pc 12:55 gambling monitor on. Pulse ox on. NIBP on. kcs 12:55 O2 via nasal cannula \T\ 3L/min. kcs 13:22 The patient / caregiver is instructed regarding the plan of care and ED course. jf3 13:24 Patient visited by Addy Quinn RN. jf3 13:28 Patient visited by Raheel Blood MD. pc 13:30 Inserted saline lock: 20 gauge in left antecubital area by Iman Lance RN. jf3 13:40 Basic Metabolic Profile Sent. mk4 13:40 CBC with Diff Sent. mk4 13:40 Cardiac Injury Profile Sent. mk4 13:40 Troponin Sent. mk4 14:40 Patient visited by Zainab Bradford PCA. ct3 14:49 DIFFERENTIAL NO CHARGE Sent. jf3 14:51 Addy QuinnRN is Primary Nurse. jf3 14:55 portable chest Returned. EDMS 15:22 Patient visited by Addy Quinn RN. jf3 16:04 Patient visited by Addy Quinn RN. jf3 16:25 [facility] Payment Agreement was scanned into [employer] and attached to record. gjb 17:09 Patient visited by Zainab Bradford PCA. ct3 17:58 Patient visited by Addy Quinn RN. jf3 19:11 No procedures done that require assistance. jf3 05/07 10:04 ECG/EKG was scanned into [employer] and attached to record. gb 21:22 EKG-ADULT Returned. EDMS Administered Medications: 05/06 13:45 Drug: Aspirin 324 mg [aspirin 81 mg chewable tablet (4 tabs)] Route: PO; jf3 16:04 Follow up: Response: No Adverse Reaction jf3 18:15 Drug: Plavix - Clopidogrel 300 mg [clopidogrel 75 mg tablet (4 tabs)] Route: PO; jf3 19:21 Follow up: Response: No Adverse Reaction jf3 Order Results: Lab Order: Basic Metabolic Profile; SPEC'M 05/06/16 13:39 Test: GLUCOSE, FASTING; Value: 103; Range: 83-110; Units: MG/DL; Status: F Test: BLOOD UREA NITROGEN; Value: 16; Range: 7-18; Units: MG/DL; Status: F Test: CREATININE FOR GFR; Value: 0.89; Range: 0.70-1.30; Units: MG/DL; Status: F Test: GLOMERULAR FILTRATION RATE; Value: > 60.0; Range: >42; Status: F Test: SODIUM LEVEL; Value: 141; Range: 136-145; Units: MEQ/L; Status: F Test: POTASSIUM SERUM; Value: 3.6; Range: 3.5-5.1; Units: MEQ/L; Status: F Test: CHLORIDE LEVEL; Value: 102; Range: 98-107; Units: MEQ/L; Status: F Test: CARBON DIOXIDE LEVEL; Value: 33; Range: 21-32; Abnormal: Above high normal; Units: MEQ/L; Status: F Test: ANION GAP; Value: 6; Range: 8-16; Abnormal: Below low normal; Units: MEQ/L; Status: F Test: CALCIUM LEVEL; Value: 8.8; Range: 8.8-10.2; Units: MG/DL; Status: F Test Note: ; Units are mL/min/1.73 m2 Chronic Kidney Disease Staging per NKF: Stage I & II GFR >=60 Normal to Mildly Decreased Stage III GFR 30-59 Moderately Decreased Stage IV GFR 15-29 Severely Decreased Stage V GFR <15 Very Little GFR Left ESRD GFR <15 on MANAGER BEAUTY Lab Order: CBC with Diff; SPEC'M 05/06/16 13:39 Test: WHITE BLOOD COUNT; Value: 7.9; Range: 4.0-10.0; Units: K/mm3; Status: F Test: RED BLOOD COUNT; Value: 3.57; Range: 4.30-6.10; Abnormal: Below low normal; Units: M/mm3; Status: F Test: HEMOGLOBIN; Value: 11.8; Range: 14.0-18.0; Abnormal: Below low normal; Units: g/dl; Status: F Test: HEMATOCRIT; Value: 34.7; Range: 42.0-52.0; Abnormal: Below low normal; Units: %; Status: F Test: MEAN CORPUSCULAR VOLUME; Value: 97.2; Range: 80.0-96.0; Abnormal: Above high normal; Units: fl; Status: F Test: MEAN CORPUSCULAR HEMOGLOBIN; Value: 33.0; Range: 27.0-33.0; Units: pg; Status: F Test: MEAN CORPUSCULAR HGB CONC; Value: 33.9; Range: 32.0-36.5; Units: g/dl; Status: F Test: RED CELL DISTRIBUTION WIDTH; Value: 14.9; Range: 11.5-14.5; Abnormal: Above high normal; Units: %; Status: F Test: PLATELET COUNT, AUTOMATED; Value: 141; Range: 150-450; Abnormal: Below low normal; Units: k/mm3; Status: F Test: NEUTROPHILS; Value: 59; Range: 35-75; Units: %; Status: F Test: LYMPHOCYTES; Value: 32; Range: 16-52; Units: %; Status: F Test: MONOCYTES; Value: 6; Range: 0-8; Units: %; Status: F Test: EOSINOPHILS; Value: 2; Range: 0-5; Units: %; Status: F Test: BASOPHILS; Value: 1; Range: 0-4; Units: %; Status: F Test: RBC MORPHOLOGY; Value: NORMAL; Status: F Lab Order: Cardiac Injury Profile; SPEC'M 05/06/16 13:39 Test: CPK CREATINE PHOSPHOKINASE; Value: 53; Range: 39-308; Units: U/L; Status: F Test: CK-MB VALUE MASS; Value: 1.3; Range: 0.0-3.6; Units: NG/ML; Status: F Test: MB/CK RELATIVE INDEX; Value: 2.45; Range: < OR =4; Status: F Test Note: ; DIAGNOSIS CRITERIA MMB ng/ml Relative Index (RI) NON-AMI < or = 5 N/A HUYNH ZONE > 5 < or = 4 AMI > 5 > 4 Lab Order: Troponin; SPEC'M 05/06/16 13:39 Test: TROPONIN I; Value: < 0.02; Range: < 0.10; Units: NG/ML; Status: F Test Note: ; Troponin I Reference Interval for BONESUPPORT LOCI: 99th Percentile= 0.00-0.045 ng/ml Risk Stratification: <= 0.10 ng/ml Decreased Risk for Adverse Clinical Events. 0.10-1.50 ng/ml Increased Risk for Adverse Clinical Events. Evaluation of additional criterion and/or repeat testing in 2-6 hours is suggested to rule out myocardial damage. >= 1.50 ng/ml Indicative of Myocardial Injury. 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 : 1940 Requested By: Raheel Melgar; Order Number: [id number] Reading MD: Marquita Shelley; Measurements; Intervals [place]; Rate: 61 P: 1; ME: 214 QRS: -22; QRSD: 98 T: -21; QT: 372; QTc: 375; Interpretive Statements; SINUS RHYTHM WITH FIRST DEGREE AV BLOCK WITH OCCASIONAL SUPRAVENTRICULAR; PREMATURE COMPLEXES; BORDERLINE LEFT AXIS DEVIATION; MODERATE VOLTAGE CRITERIA FOR LVH, CONSIDER NORMAL VARIANT; NSTTW ABNORMALITY; SIMILAR 08/22/14; Electronically Signed On 05-07-2016 20:38:22 EST by Marquita Shelley; Radiology Order: portable chest Test: portable chest REASON FOR EXAMINATION: Chest Pain; PORTABLE CHEST X-RAY: AP semi-erect view.; ; HISTORY: Chest pain.; ; Comparison study November 28, 2015.; ; FINDINGS: There is extensive chronic pleuroparenchymal opacity in the left lower; hemithorax with some volume loss unchanged from the November 28, 2015 prior study.; Patchy interstitial fibrosis is seen on the right also unchanged. No new; infiltrate is seen. Heart is not felt to be enlarged although its left border is; difficult to discern. 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 Chronic interstitial; fibrosis on the right. No acute infiltrate seen.; ; ; Signed by; Tao Joshua MD 05/06/2016 03:21 P; Outcome: 18:04 ER care complete, transfer ordered by Provider. pc 18:31 Admission hand-off: Report called to Arron Richards \Alessandra\ [facility]. jf3 20:25 Discharge Assessment: patient administered narcotics - no. The following High Risk jf3 Discharge criteria are identified: None. Transferred to [facility]. by EMS ground [facility] ambulance report to accompanying personnel Jessa Crespo EM-electronic engraver, Benjamin Dave EMT-basic, Transfer form completed. x-rays sent w/ patient. Condition: stable. No special radiology studies were completed. Property :Personal belongings accompany Pt. 20:26 Patient left the ED. jf3 Signatures: Dispatcher [employer] EDMS Raheel Blood MD MD pc Sleeman, Kacey, RN RN kcs Ariadne Blanco, Reg Reg gb Bradford, Zainab, OWNER CONSULTING ENGINEER OWNER CONSULTING ENGINEER ct3 Hannah Grant gr2 Theresa Lance RN RN mk4 Tate Rivers, OWNER CONSULTING ENGINEER OWNER CONSULTING ENGINEER mdr Addy Quinn RN RN jf3 Nara Jacob Chart Complete MTDD
== END 2016-05-06 20:26 | disposition short-term general hospital (02) ==
LOC: M ED 12:29
DX: I20.0 Unstable angina (principal); I25.10 Atherosclerotic heart disease of native coronary artery without angina pectoris; I25.2 Old myocardial infarction; E11.9 Type 2 diabetes mellitus without complications; J44.9 Chronic obstructive pulmonary disease, unspecified; K21.9 Gastro-esophageal reflux disease without esophagitis; M81.0 Age-related osteoporosis without current pathological fracture; Z86.711 Personal history of pulmonary embolism; Z95.5 Presence of coronary angioplasty implant and graft; Z99.81 Dependence on supplemental oxygen; Z79.82 Long term (current) use of aspirin; Z79.899 Other long term (current) drug therapy; Z88.1 Allergy status to other antibiotic agents; Z88.8 Allergy status to other drugs, medicaments and biological substances

== ENCOUNTER 2016-05-31 13:47 | Outpatient (RCR) | payer MEDICARE, OTHER ==
[2016-06-05] MEDS ORDERED: COZA1TAB PO (02:36)
[2016-06-05] MEDS ORDERED: ASPI81TA85 PO (02:36)
[2016-06-05] MEDS ORDERED: METF750T PO (02:36)
[2016-06-05] MEDS ORDERED: SULF-216 PO (02:36)
[2016-06-05] MEDS ORDERED: SPIR1CAP INH (02:36)
[2016-06-05] MEDS ORDERED: PLAV75TA38 PO (02:36)
[2016-06-05] MEDS ORDERED: coq 10 PO (02:36)
[2016-06-05] MEDS ORDERED: LASI20TA PO (02:36)
[2016-06-05] MEDS ORDERED: HYDR-3713 PO (02:36)
[2016-06-05] MEDS ORDERED: ALPR0.5T3 PO (02:36)
[2016-06-05] MEDS ORDERED: PRED10TA PO (02:36)
[2016-06-05] MEDS ORDERED: RANI15TA PO (02:36)
[2016-06-05] MEDS ORDERED: IBAN150T5 PO (02:36)
[2016-06-05] MEDS ORDERED: LIPI10TA PO (02:36)
[2016-06-05] MEDS ORDERED: ventolin HFA INH (02:40)
== END 2016-06-04 ==
LOC: M CR 13:47
PROVIDERS: ATTEND Nurse Practitioner Adult Health
DX: Z51.89 Encounter for other specified aftercare (principal); Z98.61 Coronary angioplasty status; I25.10 Atherosclerotic heart disease of native coronary artery without angina pectoris

== ENCOUNTER 2016-06-05 01:47 | Emergency (ER) | payer MEDICARE, OTHER ==
[~2016-06-05] VITALS: Ht 167.6 cm; Wt 94.8 kg
[2016-06-05] MEDS ORDERED: SPIR1CAP INH (02:36)
[2016-06-05] MEDS ORDERED: coq 10 PO (02:36)
[2016-06-05] MEDS ORDERED: METF750T PO (02:36)
[2016-06-05] MEDS ORDERED: RANI15TA PO (02:36)
[2016-06-05] MEDS ORDERED: SULF-216 PO (02:36)
[2016-06-05] MEDS ORDERED: ALPR0.5T3 PO (02:36)
[2016-06-05] MEDS ORDERED: HYDR-3713 PO (02:36)
[2016-06-05] MEDS ORDERED: ASPI81TA85 PO (02:36)
[2016-06-05] MEDS ORDERED: LIPI10TA PO (02:36)
[2016-06-05] MEDS ORDERED: IBAN150T5 PO (02:36)
[2016-06-05] MEDS ORDERED: PRED10TA PO (02:36)
[2016-06-05] MEDS ORDERED: LASI20TA PO (02:36)
[2016-06-05] MEDS ORDERED: COZA1TAB PO (02:36)
[2016-06-05] MEDS ORDERED: PLAV75TA38 PO (02:36)
[2016-06-05] MEDS ORDERED: ventolin HFA INH (02:40)
[2016-06-05 03:05] LABS: BASO % 0.2 % (0.0-1.0); EOS # 0.1 K/mm3 (0.0-0.50); EOS % 1.6 % (0.0-3.0); LARGE UNSTAINED CELL # 0.1 K/mm3 (0.0-0.4); LARGE UNSTAINED CELL % 1.6 % (0.0-4.0); LYMPH # 2.7 K/mm3 (1.5-4.5); LYMPH % 40.5 % (24.0-44.0); MEAN CORPUSCULAR HEMOGLOBIN 32.2 pg (27.0-33.0); MEAN CORPUSCULAR HGB CONC 33.7 g/dl (32.0-36.5); MEAN CORPUSCULAR VOLUME 95.7 fl (80.0-96.0); MONO # 0.5 K/mm3 (0.0-0.8); MONO % 7.3 % (0.0-5.0); NEUTROPHILS # 3.3 K/mm3 (1.8-7.7); NEUTROPHILS % 48.8 % (36.0-66.0); PLATELET COUNT, AUTOMATED 136 k/mm3 (150-450); WHITE BLOOD COUNT 6.7 K/mm3 (4.0-10.0)
[2016-06-05 03:16] LABS: ANION GAP 9 MEQ/L (8-16); BLOOD UREA NITROGEN 22 MG/DL (7-18); CALCIUM LEVEL 8.9 MG/DL (8.8-10.2); CARBON DIOXIDE LEVEL 29 MEQ/L (21-32); CHLORIDE LEVEL 101 MEQ/L (98-107); CREATININE FOR GFR 1.13 MG/DL (0.70-1.30); GLOMERULAR FILTRATION RATE > 60.0 (>42); GLUCOSE, FASTING 89 MG/DL (83-110); POTASSIUM SERUM 3.8 MEQ/L (3.5-5.1); SODIUM LEVEL 139 MEQ/L (136-145)
[2016-06-05 06:33] VITALS: BP 135/79
--- NOTE | 2016-06-05 10:51 | ECGEPIP ---
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
--- NOTE | 2016-06-05 10:52 | ECGEPIP ---
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
== END 2016-06-05 06:35 | disposition home or self-care (01) ==
LOC: M ED 03:34
DX: M79.602 Pain in left arm (principal); I25.10 Atherosclerotic heart disease of native coronary artery without angina pectoris; I25.2 Old myocardial infarction; Z79.899 Other long term (current) drug therapy; Z88.8 Allergy status to other drugs, medicaments and biological substances; Z88.0 Allergy status to penicillin; Z79.82 Long term (current) use of aspirin; Z79.84 Long term (current) use of oral hypoglycemic drugs; Z79.52 Long term (current) use of systemic steroids; Z79.02 Long term (current) use of antithrombotics/antiplatelets; Z95.5 Presence of coronary angioplasty implant and graft

== ENCOUNTER → 2016-07-05 | Outpatient (RCR) | payer MEDICARE, OTHER ==
[~2016-07-05] MED LIST: ALPR0.5T3 PO; ASPI81TA85 PO; COZA1TAB PO; HYDR-3713 PO; IBAN150T5 PO; LASI20TA PO; LIPI10TA PO; METF750T PO; PLAV75TA38 PO; PRED10TA PO; RANI15TA PO; SPIR1CAP INH; SULF-216 PO; coq 10 PO; ventolin HFA INH
== END ==
LOC: M CR 06-05 10:03
PROVIDERS: ATTEND Nurse Practitioner Adult Health
DX: Z51.89 Encounter for other specified aftercare (principal); Z98.61 Coronary angioplasty status

== ENCOUNTER 2016-07-19 14:05 | Outpatient (RCR) | payer MEDICARE, OTHER | END 2016-08-04 | LOC: M CR 14:05 | PROVIDERS: ATTEND Nurse Practitioner Adult Health | DX: Z51.89 Encounter for other specified aftercare (principal); Z98.61 Coronary angioplasty status; I25.10 Atherosclerotic heart disease of native coronary artery without angina pectoris ==

== ENCOUNTER 2016-08-22 18:09 | Inpatient (IN) | payer MEDICARE, OTHER ==
[~2016-08-22] VITALS: Ht 172.7 cm; Wt 94.0 kg
[2016-08-22] MEDS ORDERED: ASPIRIN 81 MG CHEW TABLET PO ONE (18:45)
[2016-08-22 18:53] LABS: BASO % 0.3 % (0.0-1.0); EOS # 0.1 K/mm3 (0.0-0.50); EOS % 1.7 % (0.0-3.0); LARGE UNSTAINED CELL # 0.1 K/mm3 (0.0-0.4); LYMPH # 1.6 K/mm3 (1.5-4.5); LYMPH % 22.1 % (24.0-44.0); MEAN CORPUSCULAR HGB CONC 34.7 g/dl (32.0-36.5); MONO # 0.5 K/mm3 (0.0-0.8); MONO % 6.6 % (0.0-5.0); NEUTROPHILS # 4.7 K/mm3 (1.8-7.7); NEUTROPHILS % 68.3 % (36.0-66.0); PLATELET COUNT, AUTOMATED 169 k/mm3 (150-450); RED CELL DISTRIBUTION WIDTH 14.6 % (11.5-14.5); WHITE BLOOD COUNT 6.9 K/mm3 (4.0-10.0)
[2016-08-22 19:18] LABS: ANION GAP 7 MEQ/L (8-16); BLOOD UREA NITROGEN 26 MG/DL (7-18); CALCIUM LEVEL 8.5 MG/DL (8.8-10.2); CARBON DIOXIDE LEVEL 31 MEQ/L (21-32); CHLORIDE LEVEL 101 MEQ/L (98-107); CREATININE FOR GFR 1.09 MG/DL (0.70-1.30); GLOMERULAR FILTRATION RATE > 60.0 (>42); GLUCOSE, FASTING 125 MG/DL (83-110); POTASSIUM SERUM 3.7 MEQ/L (3.5-5.1); SODIUM LEVEL 139 MEQ/L (136-145)
[2016-08-22] MEDS ORDERED: IPRATROPIUM 0.5MG/ALBUTEROL 2.5MG INH SOL UD 3ML (DUONEB)(J7620) NEB ONE (19:45)
[2016-08-22] MEDS ORDERED: NITROGLYCERIN 0.4 MG SUBL TABLET SL PRN (20:00)
[2016-08-22] MEDS ORDERED: NS 500 ML IV SCH (21:15)
[2016-08-22] MEDS ORDERED: ISOVUE-370 76% 100ML VIAL (Q9967) As Ordered ONE (21:44)
--- NOTE | 2016-08-22 22:22 | REP ---
Clinical: Acute chest pain. Technique: Axial contrast enhanced images from the thoracic inlet to the upper abdomen using 100 ml Isovue 370 intravenous contrast material with coronal and sagittal re-formations. Comparison: 08/22/2014. Findings: Satisfactory enhancement of the pulmonary vasculature is achieved. Very subtle areas of thrombus appear along the anterior wall of the left lower lobe pulmonary artery with extension into the terminal branches into the anterior segment of the left lower lobe which have the appearance of chronic pulmonary embolus and are associated with the most significant areas of pulmonary fibrosis. The remainder of the pulmonary arteries demonstrate normal enhancement and no further evidence for filling defects to suggest acute pulmonary emboli. The lung baca demonstrate advanced COPD/emphysematous changes with scattered scarring as well as moderate to significant subpleural and bibasilar fibrosis (left greater than right). Subtle areas of ground-glass opacity may reflect mild acute atelectasis. No discrete focal consolidation is appreciated and no obvious significant nodule or mass lesion is identified. No pleural effusion. No pneumothorax. Atherosclerotic changes to the aorta and coronary arteries along with cardiomegaly. No pericardial effusion and no evidence for thoracic aortic aneurysm or dissection. No obvious adenopathy. Surrounding musculoskeletal structures demonstrate age-related degenerative changes. Limited evaluation of the upper abdomen demonstrates normal bilateral adrenal glands along with mild atrophic changes to the kidneys. Impression: 1. Subtle mural thrombus along the anterior wall of the left lower lobe pulmonary artery with extension into the anterior segment lower lobe branches at the appearance of chronic pulmonary emboli. No further pulmonary emboli are appreciated and clinical correlation is recommended. 2. Advanced COPD and extensive subpleural and predominant lower lobe fibrosis as well as scattered bilateral scarring and interstitial changes. Subtle bibasilar ground-glass opacity may reflect associated atelectasis. 3. Chronic atherosclerotic disease and cardiomegaly. Signed by Patricio Moseley MD 08/22/2016 10:14 P
[2016-08-22] MEDS ORDERED: MORPHINE 2 MG/ML 1ML SYRINGE IV ONE (22:45)
--- NOTE | 2016-08-22 23:30 | REPUSA ---
Clinical history: Pain, swelling. Findings: The common femoral, superficial femoral, popliteal, and other deep venous structures compre ss normally and demonstrate normal color Doppler flow. Normal venous waveforms with augmentation are seen. Impression: No evidence of deep vein thrombosis in the femoral popliteal venous system.
[2016-08-23] MEDS ORDERED: HEPARIN DRIP 25,000 UNITS in APPROPRIATE DILUENT 1 EA IV SCH ×2 (02:05→02:31)
[2016-08-23] MEDS ORDERED: HEPARIN SOD (PORCINE) 5000 UNITS/ML VIAL IV ONE ×2 (02:15→02:45)
[2016-08-23] MEDS ORDERED: LORazepam 2 MG/ML VIAL (J2060) IV STA (02:28)
[2016-08-23] MEDS ORDERED: DEXTROSE 50% 50 ML SYRINGE IV PRN (02:45)
[2016-08-23] MEDS ORDERED: GLUCOSE 4 GM CHEW TABLET PO PRN (02:45)
[2016-08-23] MEDS ORDERED: GLUCAGON FOR INJ 1 MG VIAL (J1610) SC PRN (02:45)
[2016-08-23] MEDS ORDERED: BISACODYL 5 MG TAB PO PRN (02:45)
[2016-08-23] MEDS ORDERED: HEPARIN SOD (PORCINE) 5000 UNITS/ML VIAL IV PRN (02:45)
[2016-08-23] MEDS ORDERED: ACETAMINOPHEN TAB 650MG DOSE (2X325MG) PO PRN (02:45)
[2016-08-23] MEDS ORDERED: ONDANSETRON 4MG/2ML VIAL (J2405) IV PRN (02:45)
[2016-08-23 03:03] LABS: INR 1.27
[2016-08-23] MEDS ORDERED: CO Q10CA PO (03:19)
[2016-08-23] MEDS ORDERED: ALBU17IN INH (03:19)
[2016-08-23] MEDS ORDERED: ALBUTEROL 90 MCG/ACT 8GM HFA INHALER INH PRN (03:30)
[2016-08-23] MEDS ORDERED: ACETAMINOPHEN TAB 650MG DOSE (2X325MG) PO ONE (03:30)
[2016-08-23 03:50] VITALS: BP 164/76
[2016-08-23 04:34] LABS: MEAN CORPUSCULAR HEMOGLOBIN 33.7 pg (27.0-33.0); MEAN CORPUSCULAR HGB CONC 33.4 g/dl (32.0-36.5); MEAN CORPUSCULAR VOLUME 100.9 fl (80.0-96.0); RED CELL DISTRIBUTION WIDTH 14.3 % (11.5-14.5); WHITE BLOOD COUNT 6.4 K/mm3 (4.0-10.0)
[2016-08-23 04:43] LABS: INR 1.36
[2016-08-23 04:53] LABS: ANION GAP 6 MEQ/L (8-16); BLOOD UREA NITROGEN 22 MG/DL (7-18); CALCIUM LEVEL 8.1 MG/DL (8.8-10.2); CARBON DIOXIDE LEVEL 31 MEQ/L (21-32); CHLORIDE LEVEL 103 MEQ/L (98-107); CREATININE FOR GFR 0.83 MG/DL (0.70-1.30); GLOMERULAR FILTRATION RATE > 60.0 (>42); GLUCOSE, FASTING 94 MG/DL (83-110); POTASSIUM SERUM 3.7 MEQ/L (3.5-5.1); SODIUM LEVEL 140 MEQ/L (136-145)
[2016-08-23] MEDS: NORCO, ANEXSIA 5/325MG TABLET (HYDROcodone/ACETAMINOPHEN) PO PRN ×3 (06:05→19:26)
--- NOTE | 2016-08-23 06:05 | HPE ---
DATE OF ADMISSION: 08/23/2016 PRIMARY CARE PHYSICIAN: Dr. Enmanuel Otero INPATIENT HOSPITALIST ATTENDING: Dr. Aime Rivera CHIEF COMPLAINT: Chest pain. HISTORY OF PRESENTING ILLNESS: This is a 76-year-old male with history of pulmonary fibrosis, follows with Dr. Rider, coronary artery disease (CAD), stent placed in April, Dr. Swenson, [facility] 2017, myocardial infarction (KS) in 1998, two stents in 1998, third stent in 2001, abnormal EKG with intraventricular conduction delay and old inferior infarct, hypertension, hyperlipidemia, previous lung biopsy with pneumothorax as complication, type 2 diabetes on chronic steroids, paroxysmal atrial fibrillation, mild chronic thrombocytopenia and left Achilles tendon abscess requiring tendon repair of the left heel in 2007, presents to the emergency room with complaints of acute onset left-sided anterior chest pain with no radiation, described as feeling heavy while he was washing his car on morning at 7 a.m. He took one nitroglycerin and stepped into the house and rested. Symptoms abated. There was no diaphoresis, nausea or vomiting, feeling of impending doom. No change in chronic shortness of breath. The patient stated that it acted up again around noontime and took another nitroglycerin and a baby aspirin and presented to the emergency room for evaluation. In the emergency room (ER), the patient's EKG shows sinus bradycardia, chronic intraventricular conduction delay, minimal voltage criteria for left ventricular hypertrophy (LVH), probable old inferior myocardial infarction (KS). Cardiac markers showed a troponin 0.12, repeat troponin 0.1 with normal total CK-MB fraction and relative index. CT of the chest showed subtle mural thrombus along the anterior wall of the left lower lobe pulmonary artery with extension into the anterior segment of the lower lobe branches as the appearance of chronic pulmonary embolism (PE). No further PEs were seen. Advanced chronic obstructive pulmonary disease (COPD) and extensive fibrosis with ground-glass opacity reflecting associated atelectasis. Hospitalist service was called for admission for chronic pulmonary embolism with recommendation for anticoagulation with intravenous heparin. PAST MEDICAL HISTORY: 1. CAD, inferior wall KS, stents, follows with Dr. Mitchell. 2. Hypertension. 3. Hypercholesterolemia. 4. History of a tendon abscess. 5. Type 2 diabetes. 6. COPD. PAST SURGICAL HISTORY: Tendon repair of the left heel due to chronic recurrent Achilles tendon abscess with MRSA methicillin-resistant Staphylococcus aureus (MRSA) and methicillin-susceptible Staphylococcus aureus (MSSA), lung biopsy 2003, followed by pneumothorax and tonsillectomy. ALLERGIES: LIPITOR, ANGIOTENSIN-CONVERTING ENZYME (ANTONINO) INHIBITOR, AUGMENTIN causing sickness. Chronic hypoxic respiratory failure, 2 liters of oxygen nightly, on chronic prednisone. History of obstructive sleep apnea. 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 No smoking history, nonsmoker. No alcohol use. FAMILY HISTORY: Mother at age 67 of heart disease and one sister with hypertension. Father unknown medical problems. REVIEW OF SYSTEMS: Per HPI, 12 point system otherwise negative. PHYSICAL EXAMINATION: Temperature 98.4. Pulse 71, sinus. Respiratory rate 18. Blood pressure 144/73. 97% oxygen saturation on 4 liters nasal cannula. Generally, patient is awake, alert, oriented times three, answering questions appropriately, able to speak in full sentences. No use of respiratory accessory muscles. No jugular venous distention (JVD). No thyromegaly or cervical lymphadenopathy. Pupils round, reactive to light, accommodation. Extraocular muscles are intact. Lungs: Diminished breath sounds with bilateral crackles. Heart: S1, S2, sinus rhythm. No murmurs, rubs or gallops. Abdomen is soft, nontender, nondistended. Positive bowel sounds. Extremities: Trace edema. White count 6.9, hemoglobin 11.8, hematocrit 34, platelet count 169. Sodium 139, potassium 3.7, chloride 101, bicarbonate 31, BUN 26, creatinine 1, glucose 125, calcium 8.5, total CK 86, MB fraction 1.2, relative index 1.39, troponin 0.10, BNP of 88.4. EKG: Sinus bradycardia, ventricular rate of 50, moderate intraventricular conduction delay, LVH, prior inferior KS. CT chest shows chronic pulmonary embolism with subtle mural thrombus along the anterior wall of the left lower lobe pulmonary artery with extension into the anterior segment of the lower lobe branches that appears chronic PE. Venous Dopplers bilateral lower extremities showed deep venous thrombosis (DVT). ASSESSMENT AND PLAN: This is a 76-year-old male, prior history of fibrosis secondary to asbestos exposure, obstructive sleep apnea on home oxygen nightly, infected tendon with repair in 2007, coronary artery disease, myocardial infarction, multiple stents last was placed in April and May 2016, follows with Dr. Mitchell, presents to the emergency room with complaints of left-sided anterior chest pain, found to have a chronic pulmonary embolism. Current issue: The patient will be admitted as an inpatient for two midnights, assigned to Dr. Aime Rivera for the following issues. 1. Chronic pulmonary embolism in the left lower lobe pulmonary artery. Patient will be started on IV heparin drip and bridge with Coumadin to therapeutic international normalized ratio (INR) of 2-3. Patient will be continued on aspirin. Plavix will be held due to increase risk of bleeding. 2. History of CAD, KS and stents. Continue with aspirin, atorvastatin, losartan. Cycle cardiac markers. Repeat 12-lead EKG in the morning. Repeat echocardiogram. 3. Hypertension. Continue on losartan, Lasix. 4. COPD, pulmonary fibrosis, steroid dependent. Continue on prednisone. 5. Obstructive sleep apnea. Continue nightly oxygen. 6. Hyperlipidemia. Continue atorvastatin. Patient will be assigned to Dr. Aime Rivera at 7 a.m. on 08/23/2016.
[2016-08-23] MEDS: HumaLOG INSULIN (NovoLOG) PER UNIT SC SCH ×3 (07:26→17:18)
[2016-08-23 08:00] VITALS: BP 138/79
[2016-08-23] MEDS: TIOTROPIUM INHALER/CAPSULE (SPIRIVA) INH SCH (08:38)
[2016-08-23] MEDS ORDERED: ASPIRIN 81 MG ENTERIC TAB PO SCH (09:00)
[2016-08-23] MEDS: ALPRAZolam 0.5 MG TAB PO SCH ×3 (09:02→20:41)
[2016-08-23] MEDS: FUROSEMIDE 20 MG TAB PO SCH ×3 (09:02→20:35)
[2016-08-23] MEDS: LOSARTAN 25 MG TAB PO SCH ×2 (09:02→20:35)
[2016-08-23] MEDS: predniSONE 10 MG TAB PO SCH (09:02)
[2016-08-23] MEDS: metFORMIN XR 750 MG TAB PO SCH (09:02)
--- NOTE | 2016-08-23 11:43 | ECGEPIP ---
Stationary ECG Study [facility] - ED Test Date: 2016-08-23 Pat Name: SANDEE VALLE Department: Room: [place] [address] Gender: M Station Engineer: noel : 1940 Requested By: ROBERT Julien Order Number: [id number] Reading MD: Marquita Shelley Measurements Intervals [place] Rate: 50 P: 72 [place]: 209 QRS: -17 QRSD: 117 T: -21 QT: 422 QTc: 388 Interpretive Statements SINUS BRADYCARDIA MODERATE INTRAVENTRICULAR CONDUCTION DELAY MINIMAL VOLTAGE CRITERIA FOR LVH, CONSIDER NORMAL VARIANT SIMILAR 06/05/16 Electronically Signed On 08-23-2016 11:42:47 EDT by Marquita Shelley
[2016-08-23 12:00] VITALS: BP 107/62
--- NOTE | 2016-08-23 12:17 | ECGEPIP ---
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
[2016-08-23 16:00] VITALS: BP 130/75
[2016-08-23] MEDS: RIVAROXABAN 15 MG TAB (XARELTO) PO SCH (18:04)
[2016-08-23 20:00] VITALS: BP 109/56
--- NOTE | 2016-08-23 20:53 | ECHO ---
DATE OF PROCEDURE: 08/23/2016 REFERRING PHYSICIAN: Aime Rivera MD INDICATION: Chest pain. HEIGHT: 173 cm WEIGHT: 93 kg DIMENSIONS: IVS: 1.4 LV: 4.3 LVPW: 1.4 LA: 3.9 Aorta: 3.6 FINDINGS: The study is of limited technical quality. Neither parasternal nor apical or subcostal views were of good quality. Left ventricle is of normal size. Mild to moderate left ventricular hypertrophy is present. Overall, estimated ejection fraction (EF) is around 70%. Unfortunately, due to limitation of the study I cannot rule out subtle wall motion abnormalities. Right ventricle does not appear grossly enlarged. Both atria are at least mildly enlarged. Small pericardial effusion is noted. Aortic valve is heavily sclerotic, but mobility of the leaflets is preserved. Mitral valve also exhibits degenerative abnormalities with very minimal MAC. Tricuspid valve is normal. Pulmonic valve was not seen. Inferior vena cava is dilated, but there is collapse with respiration, typically indicating mildly elevated central venous pressure. Aortic root is normal. Aortic arch and abdominal aorta were not seen. Doppler interrogation reveals no aortic stenosis and trace aortic insufficiency. There is trace mitral insufficiency and no significant tricuspid insufficiency. Pulmonic valve is also functionally competent even though visualization was poor. Mitral inflow pattern and tissue Doppler imaging of mitral annulus reveal grade 1 diastolic dysfunction. CONCLUSIONS: 1. Study is of limited technical quality. 2. Normal left ventricle (LV) size with mild to moderate left ventricular hypertrophy (LVH) and hyperdynamic LV systolic function. Grade 1 diastolic dysfunction. 3. Heavy aortic sclerosis, but no significant stenosis and only trace insufficiency. 4. Probably mildly elevated central venous pressure. 5. Unable to estimate pulmonary artery pressure. 6. Small pericardial effusion. COMMENT: Subacute bacterial endocarditis (SBE) prophylaxis is not recommended. [facility]
[2016-08-23] MEDS ORDERED: HumaLOG INSULIN (NovoLOG) PER UNIT SC SCH (21:00)
[2016-08-23 23:59] VITALS: BP 102/60
[2016-08-24] MEDS: ALPRAZolam 0.5 MG TAB PO SCH ×2 (00:44→09:12)
[2016-08-24] MEDS ORDERED: POLYVINYL ALCOHOL OPHTH SOLN 15 ML(LIQUITEARS) OU PRN (02:15)
[2016-08-24] MEDS: NORCO, ANEXSIA 5/325MG TABLET (HYDROcodone/ACETAMINOPHEN) PO PRN ×2 (04:37→10:09)
[2016-08-24 05:24] LABS: MEAN CORPUSCULAR HEMOGLOBIN 34.1 pg (27.0-33.0); MEAN CORPUSCULAR HGB CONC 34.5 g/dl (32.0-36.5); MEAN CORPUSCULAR VOLUME 98.7 fl (80.0-96.0); RED CELL DISTRIBUTION WIDTH 14.6 % (11.5-14.5); WHITE BLOOD COUNT 6.4 K/mm3 (4.0-10.0)
[2016-08-24 05:35] LABS: INR 1.57
[2016-08-24 05:38] LABS: ANION GAP 6 MEQ/L (8-16); BLOOD UREA NITROGEN 24 MG/DL (7-18); CALCIUM LEVEL 8.3 MG/DL (8.8-10.2); CARBON DIOXIDE LEVEL 30 MEQ/L (21-32); CHLORIDE LEVEL 104 MEQ/L (98-107); CREATININE FOR GFR 0.66 MG/DL (0.70-1.30); GLOMERULAR FILTRATION RATE > 60.0 (>42); GLUCOSE, FASTING 110 MG/DL (83-110); POTASSIUM SERUM 3.5 MEQ/L (3.5-5.1); SODIUM LEVEL 140 MEQ/L (136-145)
[2016-08-24] MEDS: TIOTROPIUM INHALER/CAPSULE (SPIRIVA) INH SCH (07:44)
[2016-08-24 08:00] VITALS: BP 122/70
[2016-08-24] MEDS ORDERED: CLOPIDOGREL 75 MG TAB PO SCH (09:00)
[2016-08-24] MEDS: metFORMIN XR 750 MG TAB PO SCH (09:12)
[2016-08-24 09:13] VITALS: BP 122/70
[2016-08-24] MEDS: FUROSEMIDE 20 MG TAB PO SCH (09:13)
[2016-08-24] MEDS: LOSARTAN 25 MG TAB PO SCH (09:13)
[2016-08-24] MEDS: predniSONE 10 MG TAB PO SCH (09:13)
[2016-08-24] MEDS: HumaLOG INSULIN (NovoLOG) PER UNIT SC SCH (09:13)
[2016-08-24] MEDS: RIVAROXABAN 15 MG TAB (XARELTO) PO SCH (11:45)
[2016-08-24] MEDS ORDERED: XARE15TA PO (13:25)
[2016-08-24] MEDS ORDERED: XARE20TA PO (13:25)
--- NOTE | 2016-08-24 15:29 | DS.PDOC ---
Discharge Summary General Date of Admission August 23, 2016 at 02:31 Attending Physician: NEIL CLINTON MD Discharge Summary PROCEDURES PERFORMED DURING STAY: None. ADMITTING/DISCHARGE DIAGNOSES: 1. Pulmonary Embolism 2. CAD, inferior wall MT s/p PCI follows with Dr. Swenson 3. Hypertension. 4. Hypercholesterolemia. 5. History of a tendon abscess. 6. Type 2 diabetes. 7. COPD. COMPLICATIONS/CHIEF COMPLAINT: Pulmonary Embolism. HISTORY OF PRESENT ILLNESS/HOSPITAL COURSE: This is a 72-year-old male past medical history of diabetes, hypertension, CAD status post PCI with the most recent stents in April who presents complaining of left-sided chest pain and noted to have pulmonary embolism. Patient was started on anticoagulation with heparin drip. I did speak with the patient's dietary director Dr. Swenson who recommended discontinuing the aspirin, continuing Plavix as well as placing the patient was also for his pulmonary embolism, and patient agrees to this. Patient did also have a echocardiogram if no RV strain. Patient tolerated therapy well. Denies any recurrent chest pain. No nausea/vomiting abdominal pain. No dyspnea. The morning of discharge, patient was noted to have left subconjunctival hemorrhage. I did speak with the Dr. Gaviria lean leader at [facility], who is a colleague of the patient's lean leader, who recommends supportive care, No inpatient consultation, continuation of plavix and xarelto as this is commonly seen, and well self resolve. An appointment was made for the patient on Friday and the patient acknowledges that he is to return to the ED if visual deficits, additional bleeding occurs. DISCHARGE MEDICATIONS: Please see below. ALLERGIES: Please see below. PHYSICAL EXAMINATION ON DISCHARGE: Vitals: (see below) General: No acute distress, laying comfortably in bed. HEENT: Moist mucous membranes. Left eye subconjunctival hemorrhage. Pupils 2mm equal and symmetric. EOMI. No pain. Visual field intact. Neck: No JVD or lymphadenopathy Cardiac: RRR, No murmurs Pulm: Coarse crackles b/l bases. No wheezing, rhonchi Abd: NT/ND + BS. Ext: Trace to 1+ pitting edema BLE. no cyanosis. LABORATORY DATA: Please see below. IMAGING: CTA chest 08/23/16 Impression: 1. Subtle mural thrombus along the anterior wall of the left lower lobe pulmonary artery with extension into the anterior segment lower lobe branches at the appearance of chronic pulmonary emboli. No further pulmonary emboli are appreciated and clinical correlation is recommended. 2. Advanced COPD and extensive subpleural and predominant lower lobe fibrosis as well as scattered bilateral scarring and interstitial changes. Subtle bibasilar ground-glass opacity may reflect associated atelectasis. 3. Chronic atherosclerotic disease and cardiomegaly. BLE U/s 08/23/16 Impression: No evidence of deep vein thrombosis in the femoral popliteal venous system. Echocardiogram 08/24/16 CONCLUSIONS: 1. Study is of limited technical quality. 2. Normal left ventricle (LV) size with mild to moderate left ventricular hypertrophy (LVH) and hyperdynamic LV systolic function. Grade 1 diastolic dysfunction. 3. Heavy aortic sclerosis, but no significant stenosis and only trace insufficiency. 4. Probably mildly elevated central venous pressure. 5. Unable to estimate pulmonary artery pressure. 6. Small pericardial effusion. PROGNOSIS: Fair ACTIVITY: As tolerated. DIET: Low Na DISCHARGE PLAN/DISPOSITION: 01 Home, Self-Care. DISCHARGE INSTRUCTIONS: 1. F/u with PCP, Cardio, pulmonary in 1-2 weeks. F/u with ophtho on Friday at 11am. Return to ED if bleeding/visual symptoms. DISCHARGE CONDITION: Stable. TIME SPENT ON DISCHARGE: Greater than 30 minutes. Vital Signs/I&Os Vital Signs Date Time Temp Pulse Resp B/P (MAP) Pulse Ox O2 Delivery O2 Flow Rate FiO2 08/24/16 10:09 18 08/24/16 09:13 122/70 08/24/16 08:00 99.0 60 99 Room Air 08/24/16 04:00 3.0 I&O- Last 24 Hours up to 6 AM 08/24/16 05:59 Intake Total 720 ml Output Total 200 ml Balance 520 ml Laboratory Data Labs 24H Laboratory Tests 2 08/23/16 18:06: Total Creatine Kinase 67, Creatine Kinase MB 1.4, Creatine Kinase MB Relative Index 2.08, Troponin I 0.06 08/23/16 20:33: Bedside Glucose (Misc Panel) 140H 08/24/16 04:39: Prothrombin Time 18.9H, Prothromb Time International Ratio 1.57, Anion Gap 6L, Glomerular Filtration Rate > 60.0, Blood Urea Nitrogen 24H, Creatinine 0.66L, Sodium Level 140, Potassium Level 3.5, Chloride Level 104, Carbon Dioxide Level 30, Calcium Level 8.3L CBC/BMP Laboratory Tests 08/24/16 04:39 Red Blood Count 3.11 L, Mean Corpuscular Volume 98.7 H, Mean Corpuscular Hemoglobin 34.1 H, Mean Corpuscular Hemoglobin Concent 34.5, Red Cell Distribution Width 14.6 H, Calcium Level 8.3 L FSBS Laboratory Tests Test 08/23/16 20:33 Range/Units Bedside Glucose (Misc Panel) 140 83-110 MG/DL Discharge Medications Scheduled Alprazolam (Alprazolam) 0.5 Mg Tab, 0.5 MG PO TID, (Reported) Clopidogrel Bisulfate (Plavix) 75 Mg Tab, 75 MG PO DAILY, (Reported) Coenzyme Q10 (Co Q 10) 10 Mg Cap, 10 MG PO BID, (Reported) Furosemide (Lasix) 20 Mg Tab, 20 MG PO TID, (Reported) Ibandronate Sodium (Ibandronate Sodium) 150 Mg Tab, 150 MG PO MTHLY, (Reported) Losartan Potassium (Cozaar) 25 Mg Tab, 25 MG PO BID, (Reported) Metformin Hydrochloride (Metformin HCl ER) 750 Mg Tab, 750 MG PO DAILY, ( Reported) Prednisone (Prednisone) 10 Mg Tab, 10 MG PO DAILY, (Reported) Ranitidine Hcl (Zantac) 150 Mg Tab, 2 TAB PO QHS, (Reported) Rivaroxaban (Xarelto) 15 Mg Tab, 15 MG PO BID@08,18 Rivaroxaban (Xarelto) 20 Mg Tab, 20 MG PO DAILY Sulfamethoxazole (Sulfamethoxazole) 1 Pow Pow, 1 TAB PO DAILY, (Reported) Tiotropium [place] Monohydrate (Spiriva Handihaler) 18 Mcg Cap, 1 INHALATION INH DAILY, (Reported) Scheduled PRN Acetaminophen/Hydrocodone (Hydrocodone/Acetaminophen 5-325 mg) 1 Tab Tab, 1 TAB PO Q6H PRN for PAIN, (Reported) MDD 4 Albuterol Sulfate (Ventolin Hfa) 200 Puff/8 Gm Aers, 2 PUFF INH Q4H PRN for SHORTNESS OF BREATH, (Reported) Allergies Coded Allergies: ANTONINO Inhibitors (Verified Allergy, Intermediate, COUGH, 06/05/16) Atorvastatin (Verified Allergy, Intermediate, MYOPATHY, 06/05/16) Pantoprazole (Verified Allergy, Intermediate, HIVES, 06/05/16) Azithromycin (Verified Allergy, Unknown, 06/05/16) Penicillins (Verified Allergy, Unknown, 06/05/16) Penicillins Cross Reactors (Verified Allergy, Unknown, 06/05/16) NEIL CLINTON MD August 24, 2016 15:29
[2016-08-24] MEDS ORDERED: WARFARIN SOD 4 MG TAB PO SCH (17:00)
--- NOTE | 2016-08-27 08:25 | ECGEPIP ---
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 No change from 08/23/16. Electronically Signed On 08-27-2016 8:24:59 EDT by Jonah Mitchell
== END 2016-08-24 14:06 | disposition home or self-care (01) | DRG 176 ==
LOC: M ED 19:21 → M ED INP 08-23 02:31 → M ICU 08-23 03:44 → M PCU 08-23 16:26
PROVIDERS: ADMIT General Practice; ATTEND Internal Medicine
DX: I27.82 Chronic pulmonary embolism (principal); J96.11 Chronic respiratory failure with hypoxia; I10 Essential (primary) hypertension; J44.9 Chronic obstructive pulmonary disease, unspecified; E78.00 Pure hypercholesterolemia, unspecified; E11.9 Type 2 diabetes mellitus without complications; I25.2 Old myocardial infarction; I25.10 Atherosclerotic heart disease of native coronary artery without angina pectoris; Z79.52 Long term (current) use of systemic steroids; I48.0 Paroxysmal atrial fibrillation; D69.6 Thrombocytopenia, unspecified; Z88.8 Allergy status to other drugs, medicaments and biological substances; J84.10 Pulmonary fibrosis, unspecified; E78.5 Hyperlipidemia, unspecified

== ENCOUNTER 2016-08-30 09:57 | Outpatient (CLI) | payer MEDICARE, OTHER ==
[2016-08-30] MEDS ORDERED: diphenhydrAMINE 25 MG CAP PO ONE (10:45)
[2016-08-30] MEDS ORDERED: ACETAMINOPHEN TAB 650MG DOSE (2X325MG) PO ONE (10:45)
== END 2016-08-30 16:10 | disposition home or self-care (01) ==
LOC: M INFU 09:57
PROVIDERS: ATTEND Nurse Practitioner Adult Health
DX: D64.9 Anemia, unspecified (principal); Z88.8 Allergy status to other drugs, medicaments and biological substances
CPT/HCPCS: 36415; 36430; 85014; 85018; 86850; 86900; 86901; 86920; P9016

== ENCOUNTER → 2016-08-30 | Outpatient (REF) | payer MEDICARE, OTHER ==
[~2016-08-30] MED LIST changes: +ALBU17IN INH; +CO Q10CA PO; +XARE15TA PO; +XARE20TA PO
[2016-08-30 13:36] LABS: PERCENT SATURATION 23.4 % (19.7-37.4)
== END ==
LOC: M LAB REF 12:20
PROVIDERS: ATTEND Internal Medicine
DX: D64.9 Anemia, unspecified (principal)

== ENCOUNTER → 2016-10-01 | Outpatient (REF) | payer MEDICARE, OTHER | LOC: M LAB REF 12:00 | PROVIDERS: ATTEND Nurse Practitioner Adult Health | DX: I11.0 Hypertensive heart disease with heart failure (principal); I50.32 Chronic diastolic (congestive) heart failure; D62 Acute posthemorrhagic anemia ==

== ENCOUNTER → 2016-11-08 | Outpatient (REF) | payer MEDICARE, OTHER ==
[~2016-11-08] MED LIST changes: +PLAV1TAB2 PO; -PLAV75TA38 PO; -PRED10TA PO; +PRED10TA2 PO
== END ==
LOC: M LAB REF 16:15
PROVIDERS: ATTEND Nurse Practitioner Adult Health
DX: D64.9 Anemia, unspecified (principal)

== ENCOUNTER → 2016-12-24 | Outpatient (REF) | payer MEDICARE, OTHER | LOC: M LAB REF 17:33 | PROVIDERS: ATTEND Surgery | DX: C44.529 Squamous cell carcinoma of skin of other part of trunk (principal) ==

== ENCOUNTER → 2017-03-19 | Outpatient (CLI) | payer MEDICARE, OTHER ==
--- NOTE | 2017-03-19 16:53 | REP ---
RIGHT WRIST: Four views of the right wrist are performed. 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 There is resultant subluxation of the capitate bone dorsal to the lunate with anterior subluxation of the lunate and associated dorsal angulation of the lunate bone. There is mild to moderate diffuse narrowing of the radiocarpal joint with subchondral sclerosis. There is moderate narrowing and subchondral sclerosis at the joint between the scaphoid and trapezium. Diffuse vascular calcifications are present. There is no acute fracture. 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 Arthritic changes. Signed by Gilmer Eaton MD 03/20/2017 09:16 A
== END ==
LOC: M WUC 15:28
PROVIDERS: ATTEND Physician Assistant
DX: R93.7 Abnormal findings on diagnostic imaging of other parts of musculoskeletal system (principal)

== ENCOUNTER → 2017-03-24 | Outpatient (REF) | payer MEDICARE, OTHER | LOC: M LABDRAW1 11:03 | PROVIDERS: ATTEND Physician Assistant | DX: M19.031 Primary osteoarthritis, right wrist (principal) ==

== ENCOUNTER → 2017-10-16 | Outpatient (REF) | payer MEDICARE, OTHER ==
[2017-10-16 19:22] LABS: HEMOGLOBIN 10.7 g/dl (13.5-17.5); MEAN CORPUSCULAR HEMOGLOBIN 32.3 pg (27.0-33.0); MEAN CORPUSCULAR HGB CONC 32.4 g/dl (32.0-36.5); MEAN CORPUSCULAR VOLUME 99.7 fl (80.0-96.0); PLATELET COUNT, AUTOMATED 191 10^3/uL (150-450); RED BLOOD COUNT 3.31 10^6/uL (4.30-6.10); RED CELL DISTRIBUTION WIDTH 14.7 % (11.5-14.5); WHITE BLOOD COUNT 8.9 10^3/uL (4.0-10.0)
== END ==
LOC: M LAB REF 17:38
DX: J84.112 Idiopathic pulmonary fibrosis (principal)
CPT/HCPCS: 85027

== ENCOUNTER → 2017-11-12 | Outpatient (CLI) | payer MEDICARE, OTHER | LOC: M SMT 12:06 | DX: M75.41 Impingement syndrome of right shoulder (principal); M75.42 Impingement syndrome of left shoulder | CPT/HCPCS: 71046 ==

== ENCOUNTER 2017-11-25 16:53 | Emergency (ER) | payer MEDICARE, OTHER ==
[2017-11-25] MEDS: PERCOCET 5MG/325MG TAB PO (19:13)
[2017-11-25] MEDS: OXYCODONE/APAP 5MG/325MG(BULK FOR ED) 1 TABLET PO (20:48)
== END 2017-11-25 20:56 | disposition home or self-care (01) ==
LOC: M ED 16:53
DX: S13.9XXA Sprain of joints and ligaments of unspecified parts of neck, initial encounter (principal); X58.XXXA Exposure to other specified factors, initial encounter; Y92.89 Other specified places as the place of occurrence of the external cause; E11.9 Type 2 diabetes mellitus without complications; I11.9 Hypertensive heart disease without heart failure; I25.10 Atherosclerotic heart disease of native coronary artery without angina pectoris; J44.9 Chronic obstructive pulmonary disease, unspecified; E78.00 Pure hypercholesterolemia, unspecified; J84.112 Idiopathic pulmonary fibrosis; Z86.14 Personal history of Methicillin resistant Staphylococcus aureus infection; Z88.1 Allergy status to other antibiotic agents; Z88.8 Allergy status to other drugs, medicaments and biological substances; Z88.0 Allergy status to penicillin; Z79.899 Other long term (current) drug therapy; Z79.01 Long term (current) use of anticoagulants; Z79.02 Long term (current) use of antithrombotics/antiplatelets; Z79.52 Long term (current) use of systemic steroids; Z79.84 Long term (current) use of oral hypoglycemic drugs; Z79.2 Long term (current) use of antibiotics
CPT/HCPCS: 72128

== ENCOUNTER 2018-02-03 12:34 | Emergency (ER) | payer MEDICARE, OTHER ==
[2018-02-03 13:11] LABS: BASO % 0.1 % (0.0-1.0); EOS # 0.2 10^3/uL (0.0-0.50); EOS % 1.2 % (0.0-3.0); HEMATOCRIT 33.1 % (42.0-52.0); HEMOGLOBIN 11.1 g/dl (13.5-17.5); IMMATURE GRANULOCYTE % 0.8 % (0-3.0); LYMPH # 1.8 10^3/uL (1.5-4.5); MEAN CORPUSCULAR HEMOGLOBIN 32.9 pg (27.0-33.0); MEAN CORPUSCULAR HGB CONC 33.5 g/dl (32.0-36.5); MEAN CORPUSCULAR VOLUME 98.2 fl (80.0-96.0); MONO % 6.7 % (0.0-5.0); NEUTROPHILS # 12.2 10^3/uL (1.8-7.7); NEUTROPHILS % 79.2 % (36.0-66.0); PLATELET COUNT, AUTOMATED 165 10^3/uL (150-450); RED BLOOD COUNT 3.37 10^6/uL (4.30-6.10); RED CELL DISTRIBUTION WIDTH 14.6 % (11.5-14.5); WHITE BLOOD COUNT 15.4 10^3/uL (4.0-10.0)
[2018-02-03 13:25] LABS: INR 1.52; PROTHROMBIN TIME 18.5 SECONDS (12.1-14.4)
[2018-02-03 14:16] LABS: ALBUMIN 3.3 GM/DL (3.2-5.2); ALKALINE PHOSPHATASE 51 U/L (45-117); ALT/SGPT 22 U/L (12-78); ANION GAP 10 MEQ/L (8-16); AST/SGOT 27 U/L (7-37); BILIRUBIN,DIRECT < 0.1 MG/DL (0.0-0.2); BILIRUBIN,TOTAL 0.5 MG/DL (0.2-1.0); BLOOD UREA NITROGEN 26 MG/DL (7-18); CARBON DIOXIDE LEVEL 27 MEQ/L (21-32); CHLORIDE LEVEL 98 MEQ/L (98-107); CPK CREATINE PHOSPHOKINASE 78 U/L (39-308); CREATININE FOR GFR 1.02 MG/DL (0.70-1.30); GLOMERULAR FILTRATION RATE > 60.0 (>42); GLUCOSE, FASTING 139 MG/DL (70-100); LIPASE 269 U/L (73-393); MB/CK RELATIVE INDEX 1.92 (< OR =4); NT-PRO BNP 509 PG/ML (<450); POTASSIUM SERUM 4.5 MEQ/L (3.5-5.1); SODIUM LEVEL 135 MEQ/L (136-145); TOTAL PROTEIN 7.4 GM/DL (6.4-8.2); TROPONIN I < 0.02 NG/ML (< 0.10)
[2018-02-03] MEDS: NORCO, ANEXSIA 5/325MG TABLET (HYDROcodone/ACETAMINOPHEN) PO (16:20)
== END 2018-02-03 16:20 | disposition short-term general hospital (02) ==
LOC: M ED 12:34
DX: I24.9 Acute ischemic heart disease, unspecified (principal); R06.02 Shortness of breath; I11.9 Hypertensive heart disease without heart failure; I25.10 Atherosclerotic heart disease of native coronary artery without angina pectoris; I25.2 Old myocardial infarction; E78.5 Hyperlipidemia, unspecified; J44.9 Chronic obstructive pulmonary disease, unspecified; G47.30 Sleep apnea, unspecified; J84.10 Pulmonary fibrosis, unspecified; Z86.711 Personal history of pulmonary embolism; Z79.01 Long term (current) use of anticoagulants; Z99.81 Dependence on supplemental oxygen; Z79.02 Long term (current) use of antithrombotics/antiplatelets; Z79.899 Other long term (current) drug therapy; Z79.84 Long term (current) use of oral hypoglycemic drugs; Z88.1 Allergy status to other antibiotic agents; Z88.8 Allergy status to other drugs, medicaments and biological substances; Z88.0 Allergy status to penicillin
CPT/HCPCS: 71045

== ENCOUNTER → 2018-02-16 | Outpatient (REF) | payer MEDICARE, OTHER ==
[2018-02-18 12:41] LABS: FERRITIN 236 NG/ML (26-388)
[2018-02-18 12:41] LABS: IRON (FE) 96 UG/DL (65-175)
== END ==
LOC: M LAB REF 12:03
DX: D64.9 Anemia, unspecified (principal)
CPT/HCPCS: 83540

== ENCOUNTER → 2018-02-19 | Outpatient (REF) | payer MEDICARE, OTHER | LOC: M LAB REF 12:16 | DX: R31.9 Hematuria, unspecified (principal) | CPT/HCPCS: 87086 ==

== ENCOUNTER 2018-02-23 13:55 | Outpatient (CLI) | payer MEDICARE, OTHER ==
[2018-02-23] MEDS: ACETAMINOPHEN TAB 650MG DOSE (2X325MG) PO ×2 (14:15→15:52)
[2018-02-23] MEDS: diphenhydrAMINE 50 MG CAP PO (15:52)
[2018-02-23 18:03] LABS: IMMEDIATE SPIN CROSSMATCH 1 2
[2018-02-23] MEDS: FUROSEMIDE 20 MG/2 ML VIAL (J1940) IV (18:03)
== END 2018-02-23 21:16 | disposition home or self-care (01) ==
LOC: M OPCLI4PV 13:55 → M MSPAV 14:19 → M OPCLI4PV 21:15
DX: R31.0 Gross hematuria (principal); Z88.8 Allergy status to other drugs, medicaments and biological substances; Z88.0 Allergy status to penicillin; Z88.1 Allergy status to other antibiotic agents
CPT/HCPCS: 36430

== ENCOUNTER → 2018-02-23 | Outpatient (REF) | payer MEDICARE, OTHER ==
[2018-02-23 13:00] LABS: BACTERIA, URINE AUTO NEGATIVE (NEGATIVE); MUCUS, URINE SMALL (NEGATIVE); RBC, URINE AUTO 2 /HPF (0-3); SQUAMOUS EPITHELIAL CELL UR AU 0 /HPF (0-6); WBC, URINE AUTO 0 /HPF (0-3)
== END ==
LOC: M LAB REF 11:45
DX: R31.0 Gross hematuria (principal)

== ENCOUNTER → 2018-03-16 | Outpatient (REF) | payer MEDICARE, OTHER | LOC: M LAB REF 10:36 | DX: R05 Cough (principal); J84.112 Idiopathic pulmonary fibrosis | CPT/HCPCS: 87205 ==

== ENCOUNTER 2018-05-02 10:20 | Emergency (ER) | payer MEDICARE, OTHER ==
[~2018-05-02] VITALS: Ht 172.7 cm; Wt 95.5 kg
[~2018-05-02 10:20] MED LIST changes: -IBAN150T5 PO; +IBAN150T6 PO; +IRON27TA2 PO; -LASI20TA PO; +LASI20TA3 PO; +OXYC1TAB23 PO; +VITA2000 PO; +XANA0.5T PO
[2018-05-02] MEDS ORDERED: TORS20TA2 PO (10:45)
[2018-05-02] MEDS ORDERED: CO Q10CA PO (10:45)
[2018-05-02] MEDS ORDERED: ONDA4TAB6 PO (10:45)
[2018-05-02 11:05] LABS: BASO % 0.3 % (0.0-1.0); EOS # 0.1 10^3/uL (0.0-0.50); HEMOGLOBIN 10.3 g/dl (13.5-17.5); LYMPH # 2.8 10^3/uL (1.5-4.5); MEAN CORPUSCULAR HEMOGLOBIN 32.3 pg (27.0-33.0); MEAN CORPUSCULAR HGB CONC 32.2 g/dl (32.0-36.5); MEAN CORPUSCULAR VOLUME 100.3 fl (80.0-96.0); MONO # 0.9 10^3/uL (0.0-0.8); MONO % 8.6 % (0.0-5.0); NEUTROPHILS # 6.3 10^3/uL (1.8-7.7); NEUTROPHILS % 62.2 % (36.0-66.0); PLATELET COUNT, AUTOMATED 146 10^3/uL (150-450); RED BLOOD COUNT 3.19 10^6/uL (4.30-6.10); WHITE BLOOD COUNT 10.2 10^3/uL (4.0-10.0)
[2018-05-02 11:17] LABS: BLOOD UREA NITROGEN 17 MG/DL (7-18); CALCIUM LEVEL 8.7 MG/DL (8.8-10.2); CARBON DIOXIDE LEVEL 31 MEQ/L (21-32); CHLORIDE LEVEL 99 MEQ/L (98-107); CPK CREATINE PHOSPHOKINASE 54 U/L (39-308); CREATININE FOR GFR 1.04 MG/DL (0.70-1.30); GLOMERULAR FILTRATION RATE > 60.0 (>42); GLUCOSE, FASTING 98 MG/DL (70-100); MB/CK RELATIVE INDEX 3.33 (< OR =4); POTASSIUM SERUM 3.7 MEQ/L (3.5-5.1); SODIUM LEVEL 138 MEQ/L (136-145); TROPONIN I < 0.02 NG/ML (< 0.10)
[2018-05-02 11:38] LABS: INR 1.21; PROTHROMBIN TIME 15.5 SECONDS (12.1-14.4)
[2018-05-02 11:39] LABS: PARTIAL THROMBOPLASTIN TIME 26.1 SECONDS (25.4-37.6)
[2018-05-02] MEDS ORDERED: ISOVUE-370 76% 100ML VIAL (Q9967) As Ordered ONE (11:52)
--- NOTE | 2018-05-02 11:55 | REP ---
Clinical: Chest pain. Comparison: 03/02/2018. Findings: Large area of opacification involving the left lower lung zone is similar to multiple prior examinations dating through 08/22/2016. Diffuse bilateral chronic interstitial changes and fibrosis are noted. Subtle superimposed acute infiltrate cannot be excluded. No pneumothorax. Stable cardiomegaly. Skeletal structures intact. Impression: Diffuse chronic fibrosis and interstitial changes. Chronic opacity in the left mid to lower lung zone. Subtle superimposed acute process cannot be excluded. Electronically Signed by Patricio Moseley MD 05/02/2018 11:46 A
--- NOTE | 2018-05-02 12:39 | REP ---
Clinical: Acute left-sided chest pain with history of pulmonary emboli. Technique: Axial contrast enhanced images from the thoracic inlet to the upper abdomen with multiplanar re-formations using 100 ml Isovue 370 intravenous contrast material imaged for maximal enhancement of the pulmonary arterial vasculature. Comparison: 08/22/2016. Findings: Satisfactory enhancement of the pulmonary vasculature is achieved and there appears to be elements of chronic pulmonary emboli involving the third order and distal branch pulmonary arteries to the left lower lobe and lingula which remain essentially stable compared to 08/22/2016. No obvious acute, new pulmonary emboli are identified. The thoracic aorta demonstrates atherosclerotic changes without aneurysm or dissection. Cardiomegaly is again appreciated along with atherosclerotic disease to the coronary arteries. No pericardial effusion. No obvious axillary, hilar, or mediastinal adenopathy. Advanced COPD/emphysematous changes are appreciated along with moderate to significant chronic fibrosis involving the lingula and bilateral lung bases (left greater than right). Subtle areas of atelectasis involving the lingula and left lower lobe are suggested. Chronic bilateral pleural thickening (left greater than right) along with chronic left-sided volume loss and ipsilateral mediastinal shift remains stable. Impression: 1. Advanced chronic COPD/emphysematous changes and fibrosis/scarring along with chronic bilateral pleural thickening (left greater than right) and left-sided volume loss with ipsilateral mediastinal shift. 2. Chronic-appearing pulmonary emboli to the left lower lobe and lingula unchanged compared to 08/22/2016. No new acute pulmonary embolus identified. 3. Small areas of suspected atelectasis in the lingula and left lower lobe. Electronically Signed by Patricio Moseley MD 05/02/2018 12:31 P
[2018-05-02] MEDS ORDERED: NORCO, ANEXSIA 5/325MG TABLET (HYDROcodone/ACETAMINOPHEN) PO ONE (13:45)
[2018-05-02] MEDS ORDERED: ISOS30TAB PO (14:28)
[2018-05-02 14:56] VITALS: BP 109/65
--- NOTE | 2018-05-03 10:08 | ECGEPIP ---
Stationary ECG Study [facility] - ED Test Date: 2018-05-02 Pat Name: SANDEE VALLE Department: Room: - Gender: M Hand Filer Balance Wheel: SHA : 1940 Requested By: Raheel Melgar Order Number: [id number] Reading MD: Marquita Shelley Measurements Intervals [place] Rate: 77 P: [place]: 0 QRS: -9 QRSD: 98 T: -21 QT: 339 QTc: 385 Interpretive Statements ATRIAL FIBRILLATION ABNORMAL RHYTHM ECG NSTTW ABNORMALITY PRIOR INFERIOR INFARCT Electronically Signed On 05-03-2018 10:07:44 EST by Marquita Shelley
== END 2018-05-02 15:04 | disposition home or self-care (01) ==
LOC: EDBD 10:20 → M ED 10:20
DX: I20.9 Angina pectoris, unspecified (principal); I27.82 Chronic pulmonary embolism; I48.91 Unspecified atrial fibrillation; R06.02 Shortness of breath; I11.9 Hypertensive heart disease without heart failure; I25.2 Old myocardial infarction; E11.9 Type 2 diabetes mellitus without complications; E78.5 Hyperlipidemia, unspecified; J44.9 Chronic obstructive pulmonary disease, unspecified; J84.10 Pulmonary fibrosis, unspecified; Z95.5 Presence of coronary angioplasty implant and graft; G47.33 Obstructive sleep apnea (adult) (pediatric); Z88.8 Allergy status to other drugs, medicaments and biological substances; Z88.1 Allergy status to other antibiotic agents; Z88.0 Allergy status to penicillin; Z79.899 Other long term (current) drug therapy; Z79.02 Long term (current) use of antithrombotics/antiplatelets; Z79.52 Long term (current) use of systemic steroids
CPT/HCPCS: 71045; 71275; 80048; 82550; 82553; 84484; 85025; 85610; 85730; 93005; 93041; 94760; 99285; Q9967

== ENCOUNTER → 2018-06-10 | Outpatient (REF) | payer MEDICARE, OTHER ==
[~2018-06-10] MED LIST changes: +ISOS30TAB PO; +ONDA4TAB6 PO; +TORS20TA2 PO
[2018-06-10 18:28] LABS: PERCENT SATURATION 25.5 % (19.7-50.0)
== END ==
LOC: M LAB REF 16:06
PROVIDERS: ATTEND Internal Medicine
DX: D64.9 Anemia, unspecified (principal)

== ENCOUNTER 2018-07-11 20:50 | Emergency (ER) | payer MEDICARE, OTHER ==
[~2018-07-11] VITALS: Ht 160 cm; Wt 95.5 kg
[2018-07-11 21:21] LABS: BASO % 0.1 % (0.0-1.0); EOS % 0.4 % (0.0-3.0); HEMATOCRIT 30.6 % (42.0-52.0); HEMOGLOBIN 10.1 g/dl (13.5-17.5); LYMPH # 1.6 10^3/uL (1.5-4.5); LYMPH % 20.7 % (24.0-44.0); MEAN CORPUSCULAR HEMOGLOBIN 34.6 pg (27.0-33.0); MEAN CORPUSCULAR VOLUME 104.8 fl (80.0-96.0); MONO # 0.6 10^3/uL (0.0-0.8); MONO % 7.7 % (0.0-5.0); NEUTROPHILS # 5.5 10^3/uL (1.8-7.7); NEUTROPHILS % 70.7 % (36.0-66.0); PLATELET COUNT, AUTOMATED 162 10^3/uL (150-450); RED BLOOD COUNT 2.92 10^6/uL (4.30-6.10); WHITE BLOOD COUNT 7.8 10^3/uL (4.0-10.0)
[2018-07-11] MEDS ORDERED: METO1TAB87 PO (21:28)
[2018-07-11] MEDS ORDERED: ASPI81TA85 PO (21:28)
[2018-07-11] MEDS ORDERED: GABA-845 PO (21:30)
[2018-07-11 21:31] LABS: INR 2.65; PROTHROMBIN TIME 28.8 SECONDS (12.1-14.4)
[2018-07-11] MEDS ORDERED: XARE20TA (21:31)
[2018-07-11] MEDS ORDERED: NITR0.4S14 (21:31)
[2018-07-11 21:32] LABS: PARTIAL THROMBOPLASTIN TIME 40.6 SECONDS (25.4-37.6)
--- NOTE | 2018-07-11 21:41 | REP ---
Clinical: Chest pain. Technique: PA and lateral. Comparison: 05/02/2018, 11/12/2017 Findings: Chronic COPD/emphysematous changes along with bilateral pleuroparenchymal changes (left greater than right) and associated left-sided volume loss remains stable. Superimposed infiltrates in the right mid lung zone and possible superimposed left lower lobe infiltrates cannot be excluded. No pneumothorax. Mediastinum and cardiac silhouette incompletely evaluated due to overlying opacities but appears relatively stable. Skeletal structures intact. Impression: Diffuse chronic stable changes bilaterally. Superimposed right perihilar/mid lung opacities and possible superimposed left lower lobe opacities cannot be excluded. Electronically Signed by Patricio Moseley MD 07/11/2018 09:33 P
[2018-07-11 21:42] LABS: ABG BASE EXCESS 4.7 (-2.0-2.0); ABG HCO3 30.1 MEQ/L (22.0-26.0); ABG O2 SATURATION 99.4 % (95.0-99.0); ABG PARTIAL PRESSURE CO2 48.3 mmHg (35.0-45.0); ABG PARTIAL PRESSURE O2 180.9 mmHg (75.0-100.0); ABG STANDARD HCO3 28.8 MEQ/L (22.0-26.0); ABG TOTAL CO2 31.5 MEQ/L (23.0-31.0); ABG pH (ARTERIAL) 7.412 UNITS (7.350-7.450)
[2018-07-11 22:02] LABS: BLOOD UREA NITROGEN 41 MG/DL (7-18); CALCIUM LEVEL 8.6 MG/DL (8.8-10.2); CARBON DIOXIDE LEVEL 29 MEQ/L (21-32); CHLORIDE LEVEL 99 MEQ/L (98-107); CPK CREATINE PHOSPHOKINASE 113 U/L (39-308); CREATININE FOR GFR 1.61 MG/DL (0.70-1.30); GLOMERULAR FILTRATION RATE 44.6 (>42); GLUCOSE, FASTING 194 MG/DL (70-100); MB/CK RELATIVE INDEX 2.74 (< OR =4); NT-PRO BNP 988 PG/ML (<450); POTASSIUM SERUM 4.2 MEQ/L (3.5-5.1); SODIUM LEVEL 137 MEQ/L (136-145); TROPONIN I < 0.02 NG/ML (< 0.10)
[2018-07-11] MEDS ORDERED: dexameTHASONE 20 MG/5 ML VIAL (J1100) IV ONE (22:15)
[2018-07-12 01:10] LABS: CPK CREATINE PHOSPHOKINASE 92 U/L (39-308); MB/CK RELATIVE INDEX 3.37 (< OR =4); TROPONIN I < 0.02 NG/ML (< 0.10)
[2018-07-12 01:30] VITALS: BP 110/68
--- NOTE | 2018-07-12 07:05 | ECGEPIP ---
Stationary ECG Study [facility] - ED Test Date: 2018-07-11 Pat Name: SANDEE VALLE Department: Room: - Gender: M Semiconductor Wafers Marker: juan carlos : 1940 Requested By: PATRICK MONACO Order Number: [id number] Reading MD: Marquita Shelley Measurements Intervals [place] Rate: 77 P: [place]: 0 QRS: -7 QRSD: 100 T: -21 QT: 326 QTc: 371 Interpretive Statements ATRIAL FIBRILLATION ABNORMAL RHYTHM ECG INFERIOR INFARCT,OLD NSTTW ABNORMALITY SIMILAR 05/02/18 Electronically Signed On 07-12-2018 7:05:17 EDT by Marquita Shelley
--- NOTE | 2018-07-12 07:06 | ECGEPIP ---
Stationary ECG Study [facility] - ED Test Date: 2018-07-11 Pat Name: SANDEE VALLE Department: Room: - Gender: M Consulting Utility Forester: juan carlos : 1940 Requested By: YOLANDA CHEUNG Order Number: [id number] Reading MD: Marquita Shelley Measurements Intervals [place] Rate: 76 P: [place]: 0 QRS: -10 QRSD: 98 T: -26 QT: 336 QTc: 379 Interpretive Statements ATRIAL FIBRILLATION INFERIOR MYOCARDIAL INFARCTION, OLD NSTTW ABNORMALITY SIMILAR 07/11/18 Electronically Signed On 07-12-2018 7:05:46 EDT by Marquita Shelley
--- NOTE | 2018-07-14 13:12 | ED PDOC ---
Post-Departure Follow-Up dr crowley faxed formal report of cxr for fu Kathi Hill MD Jul 14, 2018 13:12
== END 2018-07-12 02:00 | disposition home or self-care (01) ==
LOC: M ED 20:50
DX: R07.89 Other chest pain (principal); J44.9 Chronic obstructive pulmonary disease, unspecified; J84.10 Pulmonary fibrosis, unspecified; I11.9 Hypertensive heart disease without heart failure; E11.9 Type 2 diabetes mellitus without complications; I48.91 Unspecified atrial fibrillation; I25.10 Atherosclerotic heart disease of native coronary artery without angina pectoris; K21.9 Gastro-esophageal reflux disease without esophagitis; M54.9 Dorsalgia, unspecified; R06.02 Shortness of breath; Z86.711 Personal history of pulmonary embolism; Z86.718 Personal history of other venous thrombosis and embolism; Z95.5 Presence of coronary angioplasty implant and graft; Z95.828 Presence of other vascular implants and grafts; Z88.1 Allergy status to other antibiotic agents; Z88.8 Allergy status to other drugs, medicaments and biological substances; Z88.0 Allergy status to penicillin; Z79.899 Other long term (current) drug therapy; Z79.01 Long term (current) use of anticoagulants; Z79.02 Long term (current) use of antithrombotics/antiplatelets; Z79.52 Long term (current) use of systemic steroids; Z79.84 Long term (current) use of oral hypoglycemic drugs; Z79.2 Long term (current) use of antibiotics; Z79.82 Long term (current) use of aspirin
CPT/HCPCS: 71046; 80048; 82550; 82553; 82803; 83880; 84484; 85025; 85610; 85730; 93005; 93041; 96374; 99285; J1100

== ENCOUNTER → 2018-08-10 | Outpatient (REF) | payer MEDICARE, OTHER ==
[~2018-08-10] MED LIST changes: +GABA-845 PO; +METO1TAB87 PO; +NITR0.4S14; +XARE20TA
== END ==
LOC: M LAB REF 13:15
PROVIDERS: ATTEND Physician Assistant
DX: J84.112 Idiopathic pulmonary fibrosis (principal)

== ENCOUNTER → 2018-08-13 | Outpatient (REF) | payer MEDICARE, OTHER ==
[2018-08-13 13:23] LABS: PERCENT SATURATION 18.6 % (19.7-50.0)
== END ==
LOC: M LAB REF 12:32
PROVIDERS: ATTEND Internal Medicine
DX: D64.9 Anemia, unspecified (principal)

== ENCOUNTER 2018-08-18 10:45 | Outpatient (CLI) | payer MEDICARE, OTHER ==
[~2018-08-18] VITALS: Ht 160 cm; Wt 95.0 kg
[~2018-08-18 10:45] MED LIST changes: +ACETAMINOPHEN TAB 650MG DOSE (2X325MG) PO ONE; +diphenhydrAMINE 25 MG CAP PO ONE
[2018-08-18 11:16] VITALS: BP 110/69
[2018-08-18 16:40] VITALS: BP 126/81
== END 2018-08-18 16:40 | disposition home or self-care (01) ==
LOC: M INFU 10:45
PROVIDERS: ATTEND Internal Medicine
DX: D64.9 Anemia, unspecified (principal); Z88.8 Allergy status to other drugs, medicaments and biological substances
CPT/HCPCS: 36430; 86850; 86900; 86901; 86920; P9016

== ENCOUNTER → 2019-01-18 | Outpatient (CLI) | payer MEDICARE, OTHER ==
[~2019-01-18] MED LIST changes: -ACETAMINOPHEN TAB 650MG DOSE (2X325MG) PO ONE; +CEFD300CAP PO; +CICL0.776 TOP; +FERR1TAB8 PO; +IPRA0.00 INH; +ISOS30TA4 PO; -METF750T PO; +METF750T36 PO; +MOME50SP NARES; +MUCI600T31 PO; -NITR0.4S14; +NITR0.4S14 SL; +RANI300T PO; +SERT-141 PO; +SULF1TAB93 PO; +VENTAER INH; -XARE20TA; -diphenhydrAMINE 25 MG CAP PO ONE
[2019-01-18 18:13] LABS: BASO % 0.2 % (0.0-1.0); EOS # 0.1 10^3/uL (0.0-0.5); HEMATOCRIT 32.6 % (42.0-52.0); HEMOGLOBIN 10.2 g/dl (13.5-17.5); LYMPH # 1.6 10^3/uL (1.5-5.0); MEAN CORPUSCULAR HEMOGLOBIN 32.7 pg (27.0-33.0); MEAN CORPUSCULAR HGB CONC 31.3 g/dl (32.0-36.5); MEAN CORPUSCULAR VOLUME 104.5 fl (80.0-96.0); MONO # 0.8 10^3/uL (0.0-0.8); MONO % 7.8 % (0.0-5.0); NEUTROPHILS # 7.4 10^3/uL (1.5-8.5); NEUTROPHILS % 74.4 % (36.0-66.0); PLATELET COUNT, AUTOMATED 182 10^3/uL (150-450); RED BLOOD COUNT 3.12 10^6/uL (4.30-6.10); WHITE BLOOD COUNT 9.9 10^3/uL (4.0-10.0)
== END ==
LOC: M SMT 13:49
PROVIDERS: ATTEND Nurse Practitioner Adult Health
DX: D64.9 Anemia, unspecified (principal); R05 Cough; J84.112 Idiopathic pulmonary fibrosis

== ENCOUNTER → 2019-01-18 | Outpatient (CLI) | payer MEDICARE, OTHER ==
[~2019-01-18] MED LIST changes: -CEFD300CAP PO; -CICL0.776 TOP; -FERR1TAB8 PO; -IPRA0.00 INH; -ISOS30TA4 PO; -MOME50SP NARES; -MUCI600T31 PO; +NITR0.4S14; -NITR0.4S14 SL; -RANI300T PO; -SULF1TAB93 PO; +XARE20TA
--- NOTE | 2019-01-18 16:55 | REP ---
Two-view chest x-ray: 01/18. Indication: Cough. Comparison: 07/11/2018. Findings: Bilateral air space and interstitial opacities are stable, most pronounced on the left. Mediastinum and cardiac silhouette are unchanged. Diminished left pulmonary volume and mild scoliosis are present. Multilevel degenerative signal of the spine are redemonstrated. Impression: Stable exam compared to 07/11/2018. Chronic fibrotic changes. Electronically Signed by Dane Peralta DO 01/18/2019 05:06 P
== END ==
LOC: M SMT 13:45
PROVIDERS: ATTEND Internal Medicine Pulmonary Disease
DX: R05 Cough (principal); J84.112 Idiopathic pulmonary fibrosis

== ENCOUNTER 2019-01-24 06:40 | Inpatient (IN) | payer MEDICARE, OTHER ==
[~2019-01-24] VITALS: Ht 172.7 cm; Wt 90.9 kg
[~2019-01-24 06:40] MED LIST changes: -NITR0.4S14; +NITR0.4S14 SL; -XARE20TA
[2019-01-24 07:17] LABS: EOS # 0.1 10^3/uL (0.0-0.5); EOS % 0.7 % (0.0-3.0); HEMOGLOBIN 10.4 g/dl (13.5-17.5); LYMPH # 1.8 10^3/uL (1.5-5.0); LYMPH % 17.4 % (24.0-44.0); MEAN CORPUSCULAR HEMOGLOBIN 33.3 pg (27.0-33.0); MEAN CORPUSCULAR HGB CONC 32.5 g/dl (32.0-36.5); MEAN CORPUSCULAR VOLUME 102.6 fl (80.0-96.0); MONO # 0.7 10^3/uL (0.0-0.8); MONO % 7.3 % (0.0-5.0); NEUTROPHILS # 7.4 10^3/uL (1.5-8.5); NEUTROPHILS % 73.2 % (36.0-66.0); PLATELET COUNT, AUTOMATED 154 10^3/uL (150-450); RED BLOOD COUNT 3.12 10^6/uL (4.30-6.10)
[2019-01-24 07:51] LABS: ALBUMIN 3.1 GM/DL (3.2-5.2); ALT/SGPT 26 U/L (12-78); BILIRUBIN,DIRECT 0.1 MG/DL (0.0-0.2); BILIRUBIN,TOTAL 0.5 MG/DL (0.2-1.0); BLOOD UREA NITROGEN 27 MG/DL (7-18); CALCIUM LEVEL 8.2 MG/DL (8.8-10.2); CARBON DIOXIDE LEVEL 31 MEQ/L (21-32); CHLORIDE LEVEL 102 MEQ/L (98-107); CK-MB VALUE MASS 1.7 NG/ML (<3.6); CPK CREATINE PHOSPHOKINASE 38 U/L (39-308); CREATININE FOR GFR 1.15 MG/DL (0.70-1.30); GLOMERULAR FILTRATION RATE > 60.0 (>42); GLUCOSE, FASTING 119 MG/DL (70-100); MB/CK RELATIVE INDEX 4.47 (< OR =4); NT-PRO BNP 1701 PG/ML (<450); POTASSIUM SERUM 4.1 MEQ/L (3.5-5.1); SODIUM LEVEL 137 MEQ/L (136-145); THYROID STIMULATING HORMONE 0.702 uIU/ML (0.358-3.740); TOTAL PROTEIN 7.4 GM/DL (6.4-8.2); TROPONIN I 0.02 NG/ML (< 0.10)
--- NOTE | 2019-01-24 07:58 | ECGEPIP ---
[facility] - ED Test Date: 2019-01-24 Pat Name: SANDEE VALLE Department: Room: - Gender: Male Retail Operations Specialist: CARLITOS : 1940 Requested By: ROHIT Harper Order Number: [id number] Reading MD: Raheel Blood Measurements Intervals [place] Rate: 79 P: [place]: 0 QRS: -5 QRSD: 115 T: -19 QT: 357 QTc: 411 Interpretive Statements ATRIAL FIBRILLATION WITH ABERRANT CONDUCTION OR VENTRICULAR PREMATURE COMPLEXES VOLTAGE CRITERIA FOR LVH INFERIOR MYOCARDIAL INFARCTION, OF INDETERMINATE AGE SIMILAR TO 07/11/18 Electronically Signed on 01-24-2019 7:58:08 EDT by Raheel Blood
[2019-01-24] MEDS: TIOTROPIUM INHALER/CAPSULE (SPIRIVA) INH SCH (08:00)
[2019-01-24] MEDS ORDERED: ISOVUE-370 76% 100ML VIAL (Q9967) As Ordered ONE (08:09)
--- NOTE | 2019-01-24 08:53 | REP ---
CT pulmonary angiogram: With IV contrast. History: Shortness of breath. Hemoptysis. Comparison CT chest May 02, 2018. Previous history of chronic pulmonary embolus. Contrast dose: 75 mL of Isovue [address] technique: Helical scanning is acquired and overlapping 1.5 mm and contiguous 3 mm axial images are reformatted. In addition, maximum intensity projection and multiplanar re-formation images are generated in sagittal and coronal imaging projections. CT pulmonary angiographic findings: There is good opacification of the pulmonary arterial tree. Thin strand-like linear filling defects persist in the left lower lobe pulmonary artery branches entirely unchanged from the appearance on May 02, 2018. This is consistent with a chronic thrombus. No new filling defect is appreciated. There is no evidence of aortic aneurysm or dissection. No mediastinal mass or adenopathy is observed. There is a small quantity of pleural fluid on the left. There is advanced COPD with end-stage honeycombing in the left lower lobe and to a lesser extent the right lower lobe. There are some peripheral fibrotic changes in the left upper lobe. No adrenal lesion is seen. Cardiomegaly is observed. No bony destructive lesion is seen. Impression: A filling defect is present in the left lower lobe pulmonary arterial tree entirely unchanged from its appearance May 02, 2018 consistent with chronic pulmonary thromboembolic disease. No acute or new pulmonary embolus is appreciated. Advanced COPD with scattered areas of honeycombing and end-stage fibrosis. There is a tiny amount of left pleural fluid. No significant change from May 02, 2018. Electronically Signed by Tao Joshua MD 01/24/2019 09:28 A
[2019-01-24] MEDS ORDERED: SERTRALINE HCL 50 MG TAB PO ONE (09:00)
[2019-01-24] MEDS ORDERED: LOSARTAN 25 MG TAB PO ONE (09:00)
[2019-01-24] MEDS ORDERED: LEVALBUTEROL 1.25 MG/0.5 ML CONCENTRATE NEB NEB PRN (09:00)
[2019-01-24] MEDS ORDERED: GLUCOSE 4 GM CHEW TABLET PO PRN (09:15)
[2019-01-24] MEDS ORDERED: GLUCAGON FOR INJ 1 MG VIAL (J1610) SC PRN (09:15)
[2019-01-24] MEDS ORDERED: DEXTROSE 50% 50 ML SYRINGE IV PRN (09:15)
[2019-01-24] MEDS ORDERED: SULF1TAB93 PO (09:20)
[2019-01-24] MEDS ORDERED: MUCI600T31 PO (09:20)
[2019-01-24] MEDS ORDERED: RANI300T PO (09:20)
[2019-01-24] MEDS ORDERED: IPRA0.00 INH (09:20)
[2019-01-24] MEDS ORDERED: MOME50SP NARES (09:20)
[2019-01-24] MEDS ORDERED: ISOS30TA4 PO (09:20)
[2019-01-24] MEDS ORDERED: PRED10TA2 PO (09:20)
[2019-01-24] MEDS ORDERED: FERR1TAB8 PO (09:20)
[2019-01-24] MEDS ORDERED: CICL0.776 TOP (09:20)
[2019-01-24] MEDS ORDERED: CEFD300CAP PO (09:20)
[2019-01-24] MEDS ORDERED: ALPRAZolam 0.5 MG TAB PO ONE (09:30)
[2019-01-24] MEDS ORDERED: CLOPIDOGREL 75 MG TAB PO ONE (10:00)
[2019-01-24] MEDS ORDERED: METOPROLOL TART 25 MG TABLET PO ONE (10:00)
[2019-01-24] MEDS ORDERED: predniSONE 10 MG TAB PO ONE (10:00)
[2019-01-24 10:23] LABS: INFLUENZA A AMPLIFICATION NEGATIVE (NEGATIVE); INFLUENZA B AMPLIFICATION NEGATIVE (NEGATIVE)
[2019-01-24] MEDS: LEVALBUTEROL 1.25 MG/0.5 ML CONCENTRATE NEB NEB SCH ×3 (10:41→21:00)
[2019-01-24] MEDS: TORSEMIDE 20 MG TAB PO SCH (12:33)
[2019-01-24] MEDS: cefTRIAXone SOD 2 GM in D5W MINI-BAG PLUS 50 ML IV SCH (12:34)
[2019-01-24] MEDS: HumaLOG INSULIN (NovoLOG) PER UNIT SC SCH ×3 (12:34→21:00)
[2019-01-24] MEDS ORDERED: NORCO, ANEXSIA 5/325MG TABLET (HYDROcodone/ACETAMINOPHEN) PO PRN (13:15)
[2019-01-24] MEDS ORDERED: SODIUM CHLORIDE 0.9% NASAL GEL 15GM (AYR) PRN (13:15)
[2019-01-24] MEDS ORDERED: NALOXONE INJ 0.4 MG/1 ML VIAL (J2310) IV PRN (13:30)
[2019-01-24] MEDS ORDERED: predniSONE 20 MG TAB PO ONE (13:30)
[2019-01-24] MEDS: DOXYCYCLINE HYCLATE 100 MG in D5W MINI-BAG PLUS 100 ML IV SCH ×2 (14:00→22:39)
[2019-01-24 14:10] VITALS: BP 112/78
[2019-01-24] MEDS: LACTOBACILLUS ACIDOPHILUS CAP (BACID) PO SCH (15:01)
[2019-01-24] MEDS: NORCO, ANEXSIA 5/325MG TABLET (HYDROcodone/ACETAMINOPHEN) PO SCH ×2 (15:02→20:51)
--- NOTE | 2019-01-24 15:58 | IPN ---
DATE: 01/24/2019 Mr. Padron is a patient who is well-known to me in my pulmonary practice for idiopathic pulmonary fibrosis diagnosed by lung biopsy in 2004 showing usual interstitial pneumonia (UIP) pathology, with a history of chronic respiratory failure, who recently had increased respiratory symptoms over the past two weeks. When initially seen in the office, he was treated with azithromycin and steroids, as there was no new infiltrate on chest imaging. It was thought that maybe the azithromycin would work as an antiinflammatory for his underlying pulmonary fibrosis and an increase in his usual baseline steroids. His coughing then became more productive. Sputum culture was obtained on 01/18/2019 and he was seen again. Sputum culture did grow three organisms, two with some resistance, and therefore was switched to cefdinir. The patient states he continued to have difficulty breathing, no fevers, but is starting to cough more dark brown secretions. He is not requiring any more oxygen than usual. He does describe lower quadrant abdominal discomfort that is only present with the force of coughing. He describes it as a groin pain, no penile pain. He has no pain with defecation. He has had no diarrhea. His last bowel movement was yesterday and was normal. He has had no blood in his stool. He denies fevers, chills. Denies any chest discomfort. He denies any anginal symptoms. No exertional dyspnea that is different from his usual exertional dyspnea. He has no pleurisy. He denies any nausea, vomiting or new back pain. He states he has been compliant with the use of his antibiotic, steroids and inhaled therapy. PAST MEDICAL HISTORY: Significant for: 1. Idiopathic pulmonary fibrosis, again as diagnosed by lung biopsy. 2. Chronic respiratory failure secondary to idiopathic pulmonary fibrosis. 3. Patient reports history of cryptogenic organizing pneumonia remotely in the past, over 10 years ago. 4. Gastroesophageal reflux. 5. Hypertension. 6. Type 2 diabetes. 7. Coronary artery disease status post multiple stenting procedures, with known cardiomyopathy. 8. Chronic steroid use, again secondary to idiopathic pulmonary fibrosis. 9. Obesity. 10. Chronic back pain. 11. Chronic knee pain. 12. History of pneumothorax. 13. History of pulmonary embolism currently on chronic anticoagulation with Xarelto. 14. History of left Achilles tear with repair thought to be due fluoroquinolone use. SOCIAL HISTORY: The patient is a lifetime nonsmoker. No illicit drug use. Lives with his , Anastasiia, who is in attendance today. PHYSICAL EXAMINATION: Temperature is 98.9, pulse is 67, respiratory rate is 18 on admission, currently 20, blood pressure is 105/83, with a mean arterial pressure of 90, oxygen saturations 100% on 5 liters; I turned this down to 4 liters upon entering the room. GENERAL: Patient is awake, appears to be at his usual level of dyspnea. He often has to stop in the mid-sentence to catch his breath. Occasionally coughing during conversation. A cough currently is nonproductive. HEENT: Sclerae clear and anicteric. Pupils equal and reactive to light. Mucous membranes are moist. Tongue is midline. Oropharynx is crowded. Mallampati 4. There is no significant erythema or exudate. NECK: Supple. No tracheal deviation or mass. LYMPHATICS: No cervical, supraclavicular or axillary adenopathy. CARDIAC: Very distant heart sounds. Regular. S1, S2. No audible murmur, rub or gallop. Point of maximum impulse (PMI) is difficult to palpate due to body habitus. There is no significant systemic edema. PULMONARY: There is diffuse diffusely abnormal breath sounds. Bibasilar rales are present. There is no dullness to percussion. There is slight prolongation in the expiratory phase. There are no rhonchi or wheezes auscultated. ABDOMEN: Obese, protuberant, soft, nontender, nondistended. No hepatosplenomegaly, masses or hernia. There is no evidence of bilateral inguinal hernia repair. When palpating over the bladder, the patient states that is the source of the discomfort, but there is no rebound, no guarding. Bowel sounds are normoactive. There are no bruits of the abdomen. EXTREMITIES: No cyanosis, clubbing or edema. MUSCULOSKELETAL: Chronic osteoarthritic changes without obvious new fracture or joint effusion. SKIN: No rash, jaundice or bruising. NEUROLOGIC: No unilateral weakness, asterixis. There is no tremor. No myoclonus. LABORATORY EVALUATION: Shows a sodium of 137, potassium 4.1, chloride 102, bicarbonate of 31, BUN of 27, creatinine 1.15, with a glucose of 119. Hemoglobin is 10.4, hematocrit of 32, white count is 10, platelet count of 154. Calcium 8.2. CK 38. Troponin is 0.02, with a BNP of 1700. Albumin is 3.1. CT angiogram to rule out pulmonary embolism shows fairly stable fibrosis predominately at the bases. The fibrosis, although stable, is fairly extensive, consistent with idiopathic pulmonary fibrosis. There does not appear to be any new dense infiltrate. There are some ground glass abnormalities that are dependent. Bronchiectasis continues. There is no endotracheal lesion. There is significant cardiomegaly and the superior vena cava (SVC) and inferior vena cava (IVC) look fairly distended, suggest an elevated right sided pressures. The radiologist suggests chronic distal thromboembolic disease. I think this is, from my standpoint, difficult to call. There is a distal artery that overlaps bronchus. However, it has not changed compared to prior studies and patient remains on both Xarelto and Plavix. Currently with symptoms of hemoptysis. IMPRESSION: 1. Idiopathic pulmonary fibrosis with bronchiectasis, likely bronchiectatic exacerbation, especially given the culture data from sputum. I agree with initiating intravenous (IV) antibiotic therapy in the form of ceftriaxone. I do not think it is unreasonable to also add doxycycline, although I think this will likely be the first antibiotic to remove for de-escalation. The patient does not have any fevers, has no signs of sepsis. There does not appear to be in new infiltrate on chest CT; therefore, given his respiratory symptoms, there is quite a big differential. He is already treated for thromboembolic disease. He has a risk of having underlying heart failure. He is on torsemide. Some of the dependent ground glass abnormalities may actually represent pulmonary edema and can induce some hemoptysis. I would, therefore, closely monitor his fluid state and consider trials of more aggressive diuresis, if kidney function allows. Because of his history of steroid responsive interstitial lung disease other than an idiopathic pulmonary fibrosis (IPF) and the new findings of ground glass abnormalities, I have switched him to IV steroids. If there is any form of vasculitis, this may also help; however, the patient has been tested for a possibility of vasculitis without any positive serology. At this point in time, I agree with the plan as outlined. I have increased orders for pulmonary toilet, chest physical therapy (PT), and positive expiratory pressure (PEP) therapy. 2. Bladder irritation. Will scan the bladder to ensure that there is no evidence of retention. Will use Ditropan for irritation and continue monitor symptoms. Low threshold for further imaging to ensure no edwina-bladder inflammation.
[2019-01-24] MEDS ORDERED: LOSARTAN 25 MG TAB PO SCH (17:00)
[2019-01-24] MEDS: RIVAROXABAN 20 MG TAB (XARELTO) PO SCH (17:16)
[2019-01-24] MEDS: METOPROLOL TART 25 MG TABLET PO SCH (17:16)
[2019-01-24] MEDS: SODIUM CHLORIDE 0.9% NASAL GEL 15GM (AYR) SCH ×2 (17:16→21:48)
--- NOTE | 2019-01-24 18:34 | HPE ---
DATE OF ADMISSION: 01/24/2019 LOOP SEWER: Dr. Kip Parada. PRIMARY CARE PHYSICIAN: Dr. Enmanuel Otero. CHIEF COMPLAINT: Shortness of breath, cough. HISTORY OF PRESENT ILLNESS: This is a 78-year-old male with a history of chronic pulmonary fibrosis, chronic hypoxic respiratory failure on 5 liters on oxygen, follows with Dr. Parada as outpatient and had been complaining of shortness of breath, cough productive of copious amounts of bloody mucous, thick, yellow appearance for the past three weeks, was seen at Dr. Parada office and was given a tapering dose of prednisone at 30 mg daily, then 20 mg daily, then his chronic prednisone dependent 10 mg daily. Patient had been given cefdinir, then completed a Z-Placido and another antibiotic this past . He denied any fever, has had worsening shortness of breath, unable to walk about 20 feet without having to stop and rest. He otherwise denies any nausea, vomiting, abdominal pain, headaches, changes in vision, diarrhea. He is chronically weak in his legs, but also complains of pleuritic chest pains. Despite nebulizer treatments, patient has had no significant improvement. In the emergency room (ER), he was afebrile, 98.9. White count was normal. CT chest is unchanged, has chronic fibrosis, pulmonary embolism, for which he takes chronic Xarelto and Plavix and is admitted for Streptococcus pneumonia found in his sputum culture on 01/18/2019, Haemophilus parainfluenza, which is resistant to Bactrim. Pt also complains of suprapubic and bilateral groin pain when he coughs, with no prior history of hernia. He denies dysuria, urgency, and frequency, but admits to occasional constipation and urinary retention. PAST MEDICAL HISTORY: 1. Chronic pulmonary fibrosis. 2. Chronic hypoxic respiratory failure on 5 liters of oxygen. 3. Chronic obstructive pulmonary disease (COPD), steroid dependent, 10 mg daily usually. 4. Chronic pulmonary embolism on chronic Xarelto. 5. History of coronary artery disease (CAD), inferior wall myocardial infarction (HI) and stents, followed by Dr. Mitchell, on chronic Plavix. 6. Hypertension. 7. Dyslipidemia. 8. History of a tendon abscess. 9. Type 2 diabetes. 10. Pneumothorax due to a lung biopsy. 11. Paroxysmal atrial fibrillation. 12. Chronic thrombocytopenia. 13. History of obstructive sleep apnea. 14. Right face squamous cell cancer (CA) status post biopsy by his immigration judge in [place] a week ago. PAST SURGICAL HISTORY: 1. Tendon repair left heel due to chronic Achilles tendon abscess with methicillin-resistant Staphylococcus aureus (MRSA). 2. Lung biopsy followed by pneumothorax. 3. Tonsillectomy. ALLERGIES: QUINOLONES, AMOXICILLIN, ATORVASTATIN, CLAVULANIC ACID, AZINTAMIDE, PROTONIX, QUINAPRIL. 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 Currently a nonsmoker. No alcohol use or recreational drug use. Lives with his , who cares for him. FAMILY HISTORY: Father unknown medical problems. Mother at 67 of heart disease. One sister with hypertension. REVIEW OF SYSTEMS: Per history of present illness (HPI). A 12 point system otherwise negative. HOME MEDICATIONS: - albuterol two puffs every 4 hours as needed for shortness of breath - Xanax 0.5 mg twice a day as needed for anxiety - cefdinir 300 mg twice a day - Plavix 75 mg daily - ferrous sulfate 325 mg daily - Mucinex 650 mg twice a day - Combivent four times a day - isosorbide 30 mg at bedtime - metoprolol 25 mg twice a day - mometasone two sprays nares - nitroglycerine as needed - Zofran 4 mg every 8 hours as needed - ranitidine 300 mg at bedtime - Xarelto 20 mg nightly - Bactrim one tablet three times a week - Spiriva 18 mcg daily - torsemide 20 mg twice a day PHYSICAL EXAMINATION: VITAL SIGNS: Temperature 98.9, pulse 84, respiratory rate 20, blood pressure 115/73, 100% on 5 liters nasal cannula. GENERAL: Patient is awake, alert, oriented to person, place and time, able to provide history. No conversational dyspnea. No jugular venous distention (JVD), thyromegaly, cervical lymphadenopathy. No cyanosis. Anicteric sclerae. No jaundice. LUNGS: Diminished bilateral wheezing. Crackles at the bases. HEART: S1, S2. Sinus rhythm. ABDOMEN: Obese, soft, nontender, nondistended. EXTREMITIES: No cyanosis or clubbing. Trace edema. EKG is atrial fibrillation, ventricular rate of 79, with inferior myocardial infarction (HI), age indeterminate. LABORATORY DATA: White count 10, hemoglobin 10, hematocrit 32, platelet count 154. Sodium 137, potassium 4, chloride 102, bicarbonate 31, BUN 27, creatinine 1.15, glucose 119. BNP 1701. MB fraction 1.7. Total CK of 38. Relative index 4.47. MICROBIOLOGY: 01/18/2019: Sputum culture: Streptococcus pneumonia, Haemophilus parainfluenzae, acinetobacter. IMAGING STUDIES: CT chest: Filling defect left lower lobe, pulmonary arterial tree, unchanged from 05/02/2018, consistent with chronic pulmonary embolism. No acute or new pulmonary embolus. Advanced COPD, scattered areas of honeycombing, end-stage fibrosis. Tiny amount of left pleural fluid. No significant change. ASSESSMENT AND PLAN: A 78-year-old male with history of chronic fibrosis, asbestos exposure, chronic hypoxic respiratory failure on 5 liters chronically of oxygen, steroid dependent prednisone 10 mg daily, coronary artery disease (CAD), stent, inferior wall myocardial infarction (HI), hypertensive heart disease, dyslipidemia, history of pneumothorax, paroxysmal atrial fibrillation, chronic pulmonary embolism on Xarelto and Plavix for heart disease, presents to the emergency room with three week history of worsening shortness of breath, copious amounts of mucous, cough, with episodes of hemoptysis, was found to have Streptococcus pneumonia, Haemophilus parainfluenzae on his sputum culture, previously treated per the patient with cefdinir, azithromycin and Bactrim recently, presents with worsening shortness of breath. In the ER, he was found to be afebrile with no white count. He is started on ceftriaxone for now. Await sputum culture results and respiratory panel. Patient will be admitted as an inpatient for two midnights for the following issues: 1. Streptococcus pneumonia, Haemophilus parainfluenzae in the sputum with community-acquired pneumonia in the setting of chronic obstructive pulmonary disease (COPD) with chronic hypoxic respiratory failure. Patient's oxygen requirement is currently at baseline at 5 liters nasal cannula. He appears to be comfortable and not hypoxic. He has no conversational dyspnea on examination, able to speak with full sentences with no use of respiratory accessory muscles. He is continued on nebulizer treatments, continued on his supplemental oxygen, to be titrated to keep saturations 88-92%. 2. COPD exacerbation. On tapering dose of prednisone. Will continue outpatient regimen of 30 mg daily for five days and decrease to 20 mg daily for five days, then discontinue back to his normal dose of 10 mg daily. 3. Chronic fibrosis, chronic hypoxic respiratory failure with pulmonary hypertension and chronic pulmonary embolism. He is continued on his home dose of Xarelto for deep venous thrombosis (DVT) prophylaxis, home oxygen and chronic steroid use. Dr. Parada has been consulted for help in management. 4. Coronary artery disease (CAD) with history of inferior wall myocardial infarction (HI). Currently on metoprolol. Continued on his Plavix and torsemide. He appears to be euvolemic at this time. 5. Type 2 diabetes. Continue on consistent carbohydrate diet and insulin sliding scale. 6. Chronic pain. Patient has requested his home dose of hydrocodone. Will monitor for respiratory distress. Narcan as needed to reverse the effects if patient should have respiratory rate greater than 20 obtundation or respiratory acidosis. 7. 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 Biopsy done by his immigration judge. Daily dressing changes per the , as previously recommended. 8. Paroxysmal atrial fibrillation. On metoprolol. Currently rate controlled. On anticoagulation with Xarelto. 9. Bilateral LQ abd pain/groin pain. no hernia palpable. check ct abd/ pelvis. surgical consult if needed. bowel regimen, and check ua. 10. Urine retention due to opioids. trial of flomax if needed. check PSA. bowel regimen to prevent constipation. 11. Constipation. due to opioids. bowel regimen 12. Chronic back pain. on hydrocodone. bowel regimen. MTDD
[2019-01-24] MEDS: ALPRAZolam 0.5 MG TAB PO PRN (20:47)
[2019-01-24] MEDS: raNITIdine SYRUP 150 MG/10 ML UDC PO SCH (20:47)
[2019-01-24] MEDS: ISOSORBIDE MON. (IMDUR) 30 MG XR TAB PO SCH (20:51)
[2019-01-24] MEDS: oxyBUTYnin 5 MG TAB PO SCH (20:51)
[2019-01-24] MEDS: guaiFENesin ER 600 MG TAB PO SCH (20:51)
[2019-01-24] MEDS: methylPREDNISolone INJ 125 MG/2 ML VIAL (J2930) IV SCH (21:48)
[2019-01-24 22:00] VITALS: BP 122/81
[2019-01-25] MEDS: LEVALBUTEROL 1.25 MG/0.5 ML CONCENTRATE NEB NEB SCH ×6 (00:09→20:42)
[2019-01-25] MEDS: NORCO, ANEXSIA 5/325MG TABLET (HYDROcodone/ACETAMINOPHEN) PO SCH ×4 (01:56→20:26)
[2019-01-25 06:00] VITALS: BP 114/67
[2019-01-25] MEDS: methylPREDNISolone INJ 125 MG/2 ML VIAL (J2930) IV SCH (06:08)
[2019-01-25 06:15] LABS: BASO % 0.1 % (0.0-1.0); EOS % 0.2 % (0.0-3.0); HEMATOCRIT 29.9 % (42.0-52.0); HEMOGLOBIN 9.6 g/dl (13.5-17.5); LYMPH # 1.3 10^3/uL (1.5-5.0); MEAN CORPUSCULAR HEMOGLOBIN 33.4 pg (27.0-33.0); MEAN CORPUSCULAR HGB CONC 32.1 g/dl (32.0-36.5); MEAN CORPUSCULAR VOLUME 104.2 fl (80.0-96.0); MONO # 0.5 10^3/uL (0.0-0.8); MONO % 5.2 % (0.0-5.0); NEUTROPHILS # 6.9 10^3/uL (1.5-8.5); NEUTROPHILS % 78.9 % (36.0-66.0); PLATELET COUNT, AUTOMATED 135 10^3/uL (150-450); RED BLOOD COUNT 2.87 10^6/uL (4.30-6.10); WHITE BLOOD COUNT 8.7 10^3/uL (4.0-10.0)
[2019-01-25 06:35] LABS: BLOOD UREA NITROGEN 24 MG/DL (7-18); CALCIUM LEVEL 8.5 MG/DL (8.8-10.2); CARBON DIOXIDE LEVEL 31 MEQ/L (21-32); CHLORIDE LEVEL 103 MEQ/L (98-107); CREATININE FOR GFR 1.05 MG/DL (0.70-1.30); GLOMERULAR FILTRATION RATE > 60.0 (>42); GLUCOSE, FASTING 148 MG/DL (70-100); POTASSIUM SERUM 4.2 MEQ/L (3.5-5.1); SODIUM LEVEL 140 MEQ/L (136-145)
[2019-01-25] MEDS: TIOTROPIUM INHALER/CAPSULE (SPIRIVA) INH SCH (08:00)
[2019-01-25] MEDS ORDERED: predniSONE 10 MG TAB PO SCH ×2 (09:00)
[2019-01-25] MEDS ORDERED: SERTRALINE HCL 50 MG TAB PO SCH (09:00)
[2019-01-25] MEDS ORDERED: TIOTROPIUM INHALER/CAPSULE (SPIRIVA) INH SCH (09:00)
[2019-01-25] MEDS: SODIUM CHLORIDE 0.9% NASAL GEL 15GM (AYR) SCH ×4 (10:02→22:54)
[2019-01-25] MEDS: FLUTICASONE PROP 0.05% NASAL SPRAY 16 GM (FLONASE) NARES SCH (10:02)
[2019-01-25] MEDS: HumaLOG INSULIN (NovoLOG) PER UNIT SC SCH ×4 (10:04→21:00)
[2019-01-25] MEDS: oxyBUTYnin 5 MG TAB PO SCH ×2 (10:07→20:24)
[2019-01-25] MEDS: LACTOBACILLUS ACIDOPHILUS CAP (BACID) PO SCH (10:08)
[2019-01-25] MEDS: CLOPIDOGREL 75 MG TAB PO SCH (10:08)
[2019-01-25] MEDS: FERROUS SULFATE 325MG TAB PO SCH (10:08)
[2019-01-25] MEDS: guaiFENesin ER 600 MG TAB PO SCH ×2 (10:09→20:26)
[2019-01-25] MEDS: TORSEMIDE 20 MG TAB PO SCH ×2 (10:10→12:38)
[2019-01-25] MEDS: cefTRIAXone SOD 2 GM in D5W MINI-BAG PLUS 50 ML IV SCH (10:11)
[2019-01-25] MEDS: METOPROLOL TART 25 MG TABLET PO SCH ×2 (10:16→18:53)
[2019-01-25] MEDS: DOXYCYCLINE HYCLATE 100 MG in D5W MINI-BAG PLUS 100 ML IV SCH ×2 (11:38→22:54)
[2019-01-25] MEDS: methylPREDNISolone INJ 40 MG/1 ML VIAL (J2920) IV SCH ×2 (12:38→18:24)
--- NOTE | 2019-01-25 12:38 | IPN ---
DATE: 01/25/2019 Mr. Padron is a 78-year-old male who is concerned about his blood sugar being elevated this morning. He states he still has a difficult cough where it is difficult to produce mucus. When he is actually able to get the mucus up, he describes it as gallagher discoloration. He states his dyspnea at rest is improved, but he still has significant dyspnea with minimal exertion. He has had no fever or chills overnight. He still complains of lower pain over the bladder only with coughing. He has no difficulty with urination. No hematuria or nocturia. He denies any dysuria. He denies any diarrhea. PHYSICAL EXAMINATION: Temperature 97.9, pulse is 84, respiratory rate is 18, blood pressure is 109/72 with oxygen saturation of 100% on 4 liters. General: Awake, alert and oriented. Affect and mood appropriate. Nutrition and hygiene are good. Oral and nasal mucosa pink and moist without lesions. Oropharynx without erythema or exudate. Tongue is midline. Neck: Supple. No tracheal deviation or mass. Lymphs: No cervical, supraclavicular or axillary adenopathy. Cardiac: Distant, S1 and S2. Without audible murmur, rub or gallop. No elevated jugular venous pulse (JVP). No systemic edema. Pulmonary: Bibasilar rales which extend nearly to the entire left lung field, right upper lung field fairly clear. There is no rhonchi. There is no wheeze. There is no prolongation expiratory phase. There is no accessory muscle use. Abdomen is soft, nontender, obese, with no discernible splenomegaly. No mass or hernia. Extremities: No cyanosis or clubbing. There are some chronic venous stasis changes, but no significant pitting edema of the lower extremities. Skin: No rash, jaundice or bruising. Musculoskeletal: Muscle wasting, but no evidence of recent trauma or joint effusion. Neurologic: No unilateral weakness, tremor or asterixis. LABORATORY EVALUATION: Shows a white blood cell count of 8.7, hemoglobin 9.6, platelet count of 135. Sodium is 140, potassium 4.2, chloride 103, bicarb of 31, BUN of 24, creatinine of 1.05, glucose is 148, and calcium is 8.5. Glucose is 306. IMPRESSION: 1. Bronchiectasis exacerbation with growth of Strep pneumoniae and Haemophilus influenzae, both resistant and failed outpatient therapy. Will require IV antibiotics for at least 5-7 days while in the hospital prior to switching to oral antibiotics. Will continue efforts towards mucociliary clearance. Because of the hyperglycemia, I will decrease his Solu-Medrol today and continue to taper as he tolerates. 2. Abdominal discomfort. Will discuss with primary team need for further imaging and workup.
--- NOTE | 2019-01-25 12:38 | IPNPDOC ---
Text Note Date of Service The patient was seen on 01/25/19. NOTE She was seen and examined this morning. No overnight events. PHYSICAL EXAMINATION: GENERAL: Patient is awake, alert, oriented to person, place and time, able to provide history. No conversational dyspnea. No jugular venous distention (JVD), thyromegaly, cervical lymphadenopathy. No cyanosis. Anicteric sclerae. No jaundice. LUNGS: Diminished bilateral wheezing. Crackles at the bases. HEART: S1, S2. Sinus rhythm. ABDOMEN: Obese, soft, nontender, nondistended. EXTREMITIES: No cyanosis or clubbing. Trace edema. EKG is atrial fibrillation, ventricular rate of 79, with inferior myocardial infarction (CT), age indeterminate. MICROBIOLOGY: 01/18/2019: Sputum culture: Streptococcus pneumonia, Haemophilus parainfluenzae, acinetobacter. IMAGING STUDIES: CT chest: Filling defect left lower lobe, pulmonary arterial tree, unchanged from 05/02/2018, consistent with chronic pulmonary embolism. No acute or new pulmonary embolus. Advanced COPD, scattered areas of honeycombing, end-stage fibrosis. Tiny amount of left pleural fluid. No significant change. ASSESSMENT AND PLAN: A 78-year-old male with history of chronic fibrosis, asbestos exposure, chronic hypoxic respiratory failure on 5 liters chronically of oxygen, steroid dependent prednisone 10 mg daily, coronary artery disease (CAD), stent, inferior wall myocardial infarction (CT), hypertensive heart disease, dyslipidemia, history of pneumothorax, paroxysmal atrial fibrillation, chronic pulmonary embolism on Xarelto and Plavix for heart disease, presents to the emergency room with three week history of worsening shortness of breath, copious amounts of mucous, cough, with episodes of hemoptysis, was found to have Streptococcus pneumonia, Haemophilus parainfluenzae on his sputum culture, previously treated per the patient with cefdinir, azithromycin and Bactrim recently, presents with worsening shortness of breath. In the ER, he was found to be afebrile with no white count. He is started on ceftriaxone for now. Await sputum culture results and respiratory panel. 1. Streptococcus pneumonia, Haemophilus parainfluenzae in the sputum with community-acquired pneumonia in the setting of chronic obstructive pulmonary disease (COPD) with chronic hypoxic respiratory failure. He hasn't has been kept on Rocephin. Patient's oxygen requirement is currently at baseline at 5 liters nasal cannula. He appears to be comfortable and not hypoxic. He has no conversational dyspnea on examination, able to speak with full sentences with no use of respiratory accessory muscles. He is continued on nebulizer treatments, continued on his supplemental oxygen, to be titrated to keep saturations 88-92%. Pulmonary consult appreciated 2. COPD exacerbation. On tapering dose of prednisone. Will continue outpatient regimen of 30 mg daily for five days and decrease to 20 mg daily for five days, then discontinue back to his normal dose of 10 mg daily. 3. Chronic fibrosis, chronic hypoxic respiratory failure with pulmonary hypertension and chronic pulmonary embolism. He is continued on his home dose of Xarelto for deep venous thrombosis (DVT) prophylaxis, home oxygen and chronic steroid use. Dr. Parada has been consulted for help in management. 4. Coronary artery disease (CAD) with history of inferior wall myocardial infarction (CT). Currently on metoprolol. Continued on his Plavix and torsemide. He appears to be euvolemic at this time. 5. Type 2 diabetes. Continue on consistent carbohydrate diet and insulin sliding scale. 6. Chronic pain. Patient has requested his home dose of hydrocodone. Will monitor for respiratory distress. Narcan as needed to reverse the effects if patient should have respiratory rate greater than 20 obtundation or respiratory acidosis. 7. 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 Biopsy done by his shorer. Daily dressing changes per the , as previously recommended. 8. Paroxysmal atrial fibrillation. On metoprolol. Currently rate controlled. On anticoagulation with Xarelto. 9. Urine retention due to opioids. trial of flomax if needed. check PSA. bowel regimen to prevent constipation. 11. Constipation. due to opioids. bowel regimen 12. Chronic back pain. on hydrocodone. bowel regimen. Discharge disposition. Unknown at this time VS,Fishbone, I+O VS, [place], I+O Laboratory Tests 01/25/19 05:58 Vital Signs Date Time Temp Pulse Resp B/P (MAP) Pulse Ox O2 Delivery O2 Flow Rate FiO2 01/25/19 10:37 18 01/25/19 10:16 84 109/72 01/25/19 10:07 Nasal Cannula 01/25/19 06:00 97.9 100 4.0 I&O- Last 24 Hours up to 6 AM 01/25/19 06:00 Intake Total 450 ml Output Total 750 ml Balance -300 ml KICHLOO,KANE A. MD Jan 25, 2019 12:38
[2019-01-25] MEDS: GASTROGRAFIN SOLUTION 30ML PO SCH ×2 (13:41→14:23)
[2019-01-25 14:00] VITALS: BP 125/50
[2019-01-25] MEDS ORDERED: ISOVUE-370 76% 100ML VIAL (Q9967) As Ordered ONE (14:32)
--- NOTE | 2019-01-25 17:50 | REP ---
REASON FOR EXAM: Abdominal pain. COMPARISON EXAM: 01/11/2016 CONTRAST: 100 mL [id number]. Marked chronic changes are seen in the lung bases with honeycomb appearance and fibrosis status quo. There are no pleural or pericardial effusions. There is four chamber cardiac enlargement. The liver, gallbladder, spleen, pancreas, adrenal glands, and kidneys are unchanged and again seen to be within normal limits. There is fatty infiltration of the pancreas status quo. Since the last examination an inferior vena cava filter has been placed. The tip of which is just at the level of the right renal vein. The abdominal aorta and paraaortic regions are within normal limits. The bowel loops and their mesenteries are within normal limits. There is no free fluid or free air. There is no intraabdominal mass or adenopathy. CT PELVIS: On the right there is an inguinal bladder hernia with the superior anterior right side of the urinary bladder pulled into the inguinal canal which has increased adipose tissue within it compared to the left side. The bowel loops are within normal limits. There is sigmoid colon diverticulosis. There is corpora amylacea. There is no mass or adenopathy. There is no free fluid or free air. There is no significant change in the appearance of the osseous structures. There are sacroiliac joint and spinal degenerative changes status quo. IMPRESSION:1. There is a right inguinal bladder hernia as described above which represents a change compared to the prior exam. 2. Sigmoid colon diverticulosis. 3. Chronic lung base changes. 4. Other findings as described above. Electronically Signed by David Saldaña DO 01/26/2019 10:26 A
[2019-01-25] MEDS: RIVAROXABAN 20 MG TAB (XARELTO) PO SCH (18:22)
[2019-01-25] MEDS: ALPRAZolam 0.5 MG TAB PO PRN (18:52)
[2019-01-25] MEDS: raNITIdine SYRUP 150 MG/10 ML UDC PO SCH (20:24)
[2019-01-25] MEDS: ISOSORBIDE MON. (IMDUR) 30 MG XR TAB PO SCH (20:25)
[2019-01-25 22:00] VITALS: BP 132/69
[2019-01-26] MEDS: methylPREDNISolone INJ 40 MG/1 ML VIAL (J2920) IV SCH ×4 (00:24→17:52)
[2019-01-26] MEDS: NORCO, ANEXSIA 5/325MG TABLET (HYDROcodone/ACETAMINOPHEN) PO SCH ×4 (02:42→20:04)
[2019-01-26] MEDS: LEVALBUTEROL 1.25 MG/0.5 ML CONCENTRATE NEB NEB SCH ×7 (04:10→23:28)
[2019-01-26 06:00] VITALS: BP 119/78
[2019-01-26 06:20] LABS: BASO % 0.1 % (0.0-1.0); HEMATOCRIT 34.3 % (42.0-52.0); LYMPH # 1.1 10^3/uL (1.5-5.0); LYMPH % 8.4 % (24.0-44.0); MEAN CORPUSCULAR HEMOGLOBIN 32.4 pg (27.0-33.0); MEAN CORPUSCULAR HGB CONC 32.1 g/dl (32.0-36.5); MEAN CORPUSCULAR VOLUME 101.2 fl (80.0-96.0); MONO # 0.4 10^3/uL (0.0-0.8); NEUTROPHILS # 11.5 10^3/uL (1.5-8.5); NEUTROPHILS % 87.7 % (36.0-66.0); PLATELET COUNT, AUTOMATED 181 10^3/uL (150-450); RED BLOOD COUNT 3.39 10^6/uL (4.30-6.10); WHITE BLOOD COUNT 13.1 10^3/uL (4.0-10.0)
[2019-01-26 06:35] LABS: CALCIUM LEVEL 8.6 MG/DL (8.8-10.2); CREATININE FOR GFR 1.43 MG/DL (0.70-1.30); GLOMERULAR FILTRATION RATE 51.2 (>42); POTASSIUM SERUM 4.2 MEQ/L (3.5-5.1)
[2019-01-26] MEDS: TIOTROPIUM INHALER/CAPSULE (SPIRIVA) INH SCH (08:04)
[2019-01-26] MEDS: HumaLOG INSULIN (NovoLOG) PER UNIT SC SCH ×4 (08:17→20:06)
[2019-01-26] MEDS: CLOPIDOGREL 75 MG TAB PO SCH (08:18)
[2019-01-26] MEDS: TORSEMIDE 20 MG TAB PO SCH (08:18)
[2019-01-26] MEDS: oxyBUTYnin 5 MG TAB PO SCH ×2 (08:18→20:05)
[2019-01-26] MEDS: FERROUS SULFATE 325MG TAB PO SCH (08:18)
[2019-01-26] MEDS: LACTOBACILLUS ACIDOPHILUS CAP (BACID) PO SCH (08:18)
[2019-01-26] MEDS: METOPROLOL TART 25 MG TABLET PO SCH ×2 (08:19→17:11)
[2019-01-26] MEDS: guaiFENesin ER 600 MG TAB PO SCH ×2 (08:20→20:04)
[2019-01-26] MEDS: SODIUM CHLORIDE 0.9% NASAL GEL 15GM (AYR) SCH ×4 (08:25→20:06)
[2019-01-26] MEDS: FLUTICASONE PROP 0.05% NASAL SPRAY 16 GM (FLONASE) NARES SCH (08:25)
[2019-01-26] MEDS ORDERED: PREVNAR 13 VACCINE SYRINGE (CPT CODE:90670) IM ONE (09:00)
[2019-01-26] MEDS: cefTRIAXone SOD 2 GM in D5W MINI-BAG PLUS 50 ML IV SCH (10:02)
--- NOTE | 2019-01-26 11:26 | IPNPDOC ---
Text Note Date of Service The patient was seen on 01/26/19. NOTE Pt was seen and examined this morning. No overnight events. Continues to com plain of right inguinal pain. States her breathing has improved. PHYSICAL EXAMINATION: GENERAL: Patient is awake, alert, oriented to person, place and time, able to provide history. No conversational dyspnea. No jugular venous distention (JVD), thyromegaly, cervical lymphadenopathy. No cyanosis. Anicteric sclerae. No jaundice. LUNGS: Diminished bilateral wheezing. No rhonchi, no wheezing, no crackles HEART: S1, S2. Sinus rhythm. ABDOMEN: Obese, soft, nontender, nondistended. EXTREMITIES: No cyanosis or clubbing. Trace edema. Neurologically intact EKG is atrial fibrillation, ventricular rate of 79, with inferior myocardial infarction (ID), age indeterminate. MICROBIOLOGY: 01/18/2019: Sputum culture: Streptococcus pneumonia, Haemophilus parainfluenzae, acinetobacter. IMAGING STUDIES: CT chest: Filling defect left lower lobe, pulmonary arterial tree, unchanged from 05/02/2018, consistent with chronic pulmonary embolism. No acute or new pulmonary embolus. Advanced COPD, scattered areas of honeycombing, end-stage fibrosis. Tiny amount of left pleural fluid. No significant change. ASSESSMENT AND PLAN: A 78-year-old male with history of chronic fibrosis, asbestos exposure, chronic hypoxic respiratory failure on 5 liters chronically of oxygen, steroid dependent prednisone 10 mg daily, coronary artery disease (CAD), stent, inferior wall myocardial infarction (ID), hypertensive heart disease, dyslipidemia, history of pneumothorax, paroxysmal atrial fibrillation, chronic pulmonary embolism on Xarelto and Plavix for heart disease, presents to the emergency room with three week history of worsening shortness of breath, copious amounts of mucous, cough, with episodes of hemoptysis, was found to have Streptococcus pneumonia, Haemophilus parainfluenzae on his sputum culture, previously treated per the patient with cefdinir, azithromycin and Bactrim recently, presents with worsening shortness of breath. In the ER, he was found to be afebrile with no white count. He is started on ceftriaxone for now. Await sputum culture results and respiratory panel. 1. Streptococcus pneumonia, Haemophilus parainfluenzae in the sputum with community-acquired pneumonia in the setting of chronic obstructive pulmonary disease (COPD) with chronic hypoxic respiratory failure. He hasn't has been kept on Rocephin. Patient's oxygen requirement is currently at baseline at 5 liters nasal cannula. He appears to be comfortable and not hypoxic. He has no conversational dyspnea on examination, able to speak with full sentences with no use of respiratory accessory muscles. He is continued on nebulizer treatments, continued on his supplemental oxygen, to be titrated to keep saturations 88-92%. Pulmonary consult appreciated 2. COPD exacerbation. On tapering dose of prednisone. 3. Chronic fibrosis, chronic hypoxic respiratory failure with pulmonary hypertension and chronic pulmonary embolism. He is continued on his home dose of Xarelto for deep venous thrombosis (DVT) prophylaxis, home oxygen and chronic steroid use. Dr. Parada has been consulted for help in management. 4. Coronary artery disease (CAD) with history of inferior wall myocardial infarction (ID). Currently on metoprolol. Continued on his Plavix and torsemide. He appears to be euvolemic at this time. 5. Type 2 diabetes. Continue on consistent carbohydrate diet and insulin sliding scale. 6. Chronic pain. Patient has requested his home dose of hydrocodone. Will monitor for respiratory distress. Narcan as needed to reverse the effects if patient should have respiratory rate greater than 20 obtundation or respiratory acidosis. 7. 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 Biopsy done by his hadoop engineer. Daily dressing changes per the , as previously recommended. 8. Paroxysmal atrial fibrillation. On metoprolol. Currently rate controlled. On anticoagulation with Xarelto. 9. Right inguinal bladder hernia. Will get surgery to evaluate him to see if there is any intervention, which can be done. 11. Constipation. due to opioids. bowel regimen 12. Chronic back pain. on hydrocodone. bowel regimen. Discharge disposition. Unknown at this time VS,[place], I+O VS, [place], I+O Laboratory Tests 01/26/19 05:49 Vital Signs Date Time Temp Pulse Resp B/P (MAP) Pulse Ox O2 Delivery O2 Flow Rate FiO2 01/26/19 08:50 18 Nasal Cannula 4.0 01/26/19 08:19 84 129/71 01/26/19 06:00 98.3 97 I&O- Last 24 Hours up to 6 AM 01/26/19 06:00 Intake Total 500 ml Output Total 1165 ml Balance -665 ml KANE BARRON MD Jan 26, 2019 11:26
[2019-01-26] MEDS: DOXYCYCLINE HYCLATE 100 MG in D5W MINI-BAG PLUS 100 ML IV SCH ×2 (11:53→23:08)
--- NOTE | 2019-01-26 12:53 | IPN ---
DATE OF SERVICE: 01/26/2019 Overnight the patient states that he continues to have bladder discomfort pain with coughing. CT scan did show evidence of right inguinal bladder herniation. The patient again is growing strep pneumonia likely the same as culture did as an outpatient, fairly resistant but sensitive to cephalosporins. He remains on antibiotic therapy, has good mucus production from his chest physiotherapy this morning, coughing up thick amounts of yellow mucus. No hemorrhage this morning or hemoptysis. PHYSICAL EXAMINATION: Temperature is 98.3, pulse is 84, respiratory rate is 18, blood pressure is 129/71, oxygen saturation is 97% on 4 liters. General: Awake, alert and oriented. Affect and mood are appropriate. Nutrition and hygiene are good. Oronasal mucosa pink and moist without lesions. Oropharynx is crowded without erythema or exudate. Tongue is midline. Neck is supple. No tracheal deviation or mass. Difficult to assess jugular venous pulse (JVP) due to body habitus. Neck is supple. Lymph nodes : No cervical, supraclavicular, or axillary adenopathy. Cardiac: Regular S1-S2 without audible murmur, rub, or gallop. Point of maximum impulse (PMI) is difficult to palpate due to body habitus. Pulmonary: Diffuse expiratory wheeze. This was new, the exam was performed just post chest physiotherapy. There are bibasilar rales. There is some prolongation in the expiratory phase. No dullness to percussion. No accessory muscle use. Abdomen: Soft, nontender, nondistended, no hepatosplenomegaly but obese, protuberant. Extremities: No cyanosis, clubbing or edema. Skin: Multiple skin tears, bruising of variation, healing incision over the right side of his face. Laboratory evaluation shows that there is a negative viral panel sputum again growing strep pneumonia likely multidrug resistant. White blood cell count is 13.1, sodium is 136, potassium 4.2, chloride 96, bicarb 30, BUN of 36, creatinine is elevated at 1.43, I suspect this is in the face of infection, yesterday was normal. IMPRESSION 1. Idiopathic pulmonary fibrosis with bronchiectasis exacerbation growing strep pneumonia that is resistant failed outpatient oral therapy with Cefdinir and azithromycin, now on IV antibiotics with subjective improvement. We will continue mucociliary clearance, antibiotic therapy, and steroids. We will taper steroids as tolerated. I believe the patient will require IV antibiotic therapy for the duration of his therapy due to the fact that this was a fairly resistant organism. 2. Right inguinal bladder hernia. Primary team has consulted surgery. 3. Leukocytosis likely secondary to steroids. We will continue to monitor for signs, symptoms of sepsis. 4. Renal insufficiency, mild in nature. We will hold diuretics today after this mornings dose and reevaluate fluid status in the morning. The patient may be atmospheric drier tender than usual in the face of infection.
--- NOTE | 2019-01-26 13:44 | CR.PDOC ---
General Surgery Consultation Date of Consultation 01/26/19 History and Physical CONSULT REPORT FOR: hospitalist service REASON FOR CONSULTATION: right groin pain HISTORY OF PRESENT ILLNESS: I was asked to evaluate Mr. Benoit who is a 78-year-old gentleman currently admitted in the hospital for multiply resistant pneumonia/bronchiectasis. Baseline he is oxygen dependent and minimally mobile due to severe pulmonary fibrosis, COPD. He also has an extensive coronary artery disease reportedly with 11 stents on anticoagulation. Due to his pneumonia he has been coughing frequently which is causing him discomfort on his right groin area. He describes this as sharp pulling pain whenever he coughs. Baseline he denies that he has any pain but the discomfort is prominent and gets exacerbated with coughing and immediately resolves after coughing. He does not notice any bulging at the area previously or even now. He had no prior history of hernia nor any inguinal or abdominal surgeries for hernia. Due to the pain and discomfort he was evaluated with CT scan of the abdomen and pelvis during his admission which shows a small suprapubic hernia containing maybe his diverticulum of the bladder or portion of the dome of the bladder. I also see a possibility of a fat containing left inguinal hernia. PAST MEDICAL HISTORY: This was reviewed as documented in his history and physical examination and confirmed with the patient. Most prominent and relevant of which is his oxygen dependence, pulmonary fibrosis, severe coronary artery disease and need for anticoagulation PAST SURGICAL HISTORY: INCLUDES: Reviewed as documented in his H&P. Nothing relevant for the groin pain or the inguinal hernia ALLERGIES: Please see below. FAMILY HISTORY: Noncontributory HOME MEDICATIONS: Please see below. REVIEW OF SYSTEMS: Region at baseline reports minimal sedentary activity due to the limitations from his breathing as well as chest pain from the coronary artery disease. He denies fevers or chills since been maintaining his weight. Prior to the exacerbation caused by the coughing was denying any joint pain or knowing that he has a hernia. On talking to him he seems to have accepted the fact that he has severe cardiopulmonary disease which is activity limiting and even life limiting. In his own words he is nearing the end of his life and has accepted this and really just wishes to be as comfortable as he can at this stage his life and is not looking for any surgery. He is aware that is high risk for surgery. PHYSICAL EXAMINATION: VITALS SIGNS: Please see below. GENERAL APPEARANCE: Patient seen laying on bed, relatively comfortable no acute distress he has a nasal cannula. He does Possis saw him during the conversation to take some deeper breaths but was not in any respiratory distress in any way at the time that I saw him. ABDOMEN: On abdominal and groin examination he is a round protuberant abdomen but benign in appearance. Nontender on palpation. He has a slight more prominent right side of the pubic fat pad but is hard to delineate Mateusz is the presence of the hernia could not clinically confirm the presence of the hernia on my examination both in the right than the left groin as seen on the CT. EXTREMITIES: Mild lower extremity edema ANCILLARIES: . LABORATORY DATA: Please see below. IMAGING STUDIES: CT abdomen and pelvis There is a right inguinal bladder hernia as described above which represents a change compared to the prior exam. 2. Sigmoid colon diverticulosis. 3. Chronic lung base changes. 4. Other findings as described above. IMPRESSION AND PLAN: Small suprapubic hernia and it seems to contain a small piece of a bladder or bladder diverticulum Right groin pain may be related to the hernia or just a groin strain from the constant coughing COPD end-stage. I could not confirm the presence of the hernia and my examination but there the CT scan demonstrates a suprapubic hernia containing part of the dome of the bladder probably a urinary bladder diverticulum. There is no associated inflammatory changes to denote strangulation or incarceration. He is nontender on palpating around the area where the hernia should be based on the CT. His main complaint is discomfort when he coughs which could just be a groin strain. He does not have any baseline discomfort if he is not coughing is actually feeling comfortable today. Patient and his own words is reaching end of his life and is comfortable with this idea and is aware that given his cardiopulmonary condition is high risk for surgery. I don't think is a candidate for surgery and I told him that the only reason I would consider surgery if the condition is life-threatening and even then given his other multiple comorbidities it probably is reasonable not to ask surgically with this. The best I could offer him I told him is to perform an ilioinguinal block if he has persistent pain which he does not seem to be. Thus I suggest treating this with occasional nonnarcotic pain medication and try to control the coughing as best as can be clinically achieved given this and condition. I will not actively follow up with the patient given his nonsurgical status and as I have mentioned abdomen plans of performing surgery on him. Vital Signs Vital Signs Date Time Temp Pulse Resp B/P (MAP) Pulse Ox O2 Delivery O2 Flow Rate FiO2 01/26/19 12:37 4.0 01/26/19 08:50 18 Nasal Cannula 01/26/19 08:19 84 129/71 01/26/19 06:00 98.3 97 I&Os I&O- Last 24 Hours up to 6 AM 01/26/19 06:00 Intake Total 500 ml Output Total 1165 ml Balance -665 ml Laboratory Data Labs 24H Laboratory Tests 2 01/25/19 15:59: Urine Color STRAW, Urine Appearance CLEAR, Urine pH 6.0, Urine Specific [place] 1.016, Urine Protein NEGATIVE, Urine Glucose (UA) NEGATIVE, Urine Ketones NEGATIVE, Urine Blood 1+H, Urine Nitrite NEGATIVE, Urine Bilirubin NEGATIVE, Urine Urobilinogen 0.2, Urine Leukocyte Esterase NEGATIVE, Urine WBC (Auto) 0, Urine RBC (Auto) 2, Urine Hyaline Casts (Auto) 0, Urine Bacteria (Auto) NEGATIVE, Urine Squamous Epithelial Cells 0, Urine Mucus (Auto) SMALL, Urine Sperm (Auto) 01/25/19 17:16: Bedside Glucose (Misc Panel) 106 01/25/19 20:41: Bedside Glucose (Misc Panel) 239H 01/26/19 05:49: Immature Granulocyte % (Auto) 0.8, Neutrophils (%) (Auto) 87.7H, Lymphocytes (%) (Auto) 8.4L, Monocytes (%) (Auto) 3.0, Eosinophils (%) (Auto) 0.0, Basophils (%) (Auto) 0.1, Neutrophils # (Auto) 11.5H, Lymphocytes # (Auto) 1.1L, Monocytes # (Auto) 0.4, Eosinophils # (Auto) 0.0, Basophils # (Auto) 0.0, Nucleated Red Blood Cells % (auto) 0.0, Anion Gap 10, Glomerular Filtration Rate 51.2, Calcium Level 8.6L 01/26/19 12:08: Bedside Glucose (Misc Panel) 253H CBC/BMP Laboratory Tests 01/26/19 05:49 Microbiology Microbiology 01/24/19 Respiratory Virus Panel (PCR) ([facility]ZWAN) - Final, Complete 01/24/19 Gram Stain - Final, Resulted 01/24/19 Sputum Culture - Preliminary, Resulted Streptococcus Pneumoniae 01/24/19 Blood Culture - Preliminary, Resulted No Growth after 48 hours. All Specime... 01/24/19 Blood Culture - Preliminary, Resulted No Growth after 48 hours. All Specime... Home Medications Scheduled Cefdinir (Cefdinir) 300 Mg Capsule, 300 MG PO BID, (Reported) FOR 7 DAYS, STARTED 01/21/19 Clopidogrel Bisulfate (Plavix) 75 Mg Tab, 75 MG PO DAILY, (Reported) Ferrous Sulfate (Ferrous Sulfate) 325 Mg Tablet, 325 MG PO DAILY, (Reported) Guaifenesin (Mucinex) 600 Mg Tab.er.12h, 600 MG PO BID, (Reported) Isosorbide Mononitrate (Isosorbide Mononitrate ER) 30 Mg Tab.er.24h, 30 MG PO QHS, (Reported) Metoprolol Tartrate (Metoprolol Tartrate) 25 Mg Tab, 25 MG PO BID, (Reported) Mometasone Furoate Monohydrate (Nasonex) 17 Gm Anderson.pump, 2 SPRAY NARES DAILY, (Reported) Prednisone (Prednisone) 10 Mg Tab, 10 MG PO DAILY, (Reported) RESUME AFTER TAPER Prednisone (Prednisone) 10 Mg Tablet, 10 MG PO TAPER, (Reported) Take 40 MG daily x5days, 30mg daily x5days, 20mg daily x5 days then resume 10mg regular daily dose. Pt to start 30mg dose today 01/24/19 Ranitidine HCl (Ranitidine HCl) 300 Mg Tablet, 1 TAB PO QHS, (Reported) Rivaroxaban (Xarelto) 20 Mg Tab, 20 MG PO QPM, (Reported) Sulfamethoxazole/Trimethoprim (Sulfamethoxazole-Tmp Ds Tablet) 1 Each Tablet, 1 TAB PO 3XW, (Reported) MON/WED/FRI Tiotropium [place] (Spiriva) 18 Mcg Cap, 18 MCG INH DAILY, (Reported) Torsemide (Torsemide) 20 Mg Tab, 20 MG PO BID, (Reported) TAKES AM/NOON Scheduled PRN Albuterol Sulfate (Ventolin Hfa) 18 Gm Hfa.aer.ad, 2 PUFF INH Q4H PRN for SOB/WHEEZING, (Reported) Alprazolam (Xanax) 0.5 Mg Tab, 0.5 MG PO BID PRN for ANXIETY, (Reported) Ciclopirox (Ciclopirox) 30 Gm Gel..gram., 1 APLCT TOP BID PRN for ITCHING, (Reported) APPLY TO FEET Hydrocodone/Acetaminophen (Hydrocodone-Acetamin 5-325 mg) 1 Tab Tab, 2 TAB PO Q6H PRN for PAIN, (Reported) Ipratropium/Albuterol Sulfate (Iprat-Albut 0.5-3(2.5) mg/3 ml) 3 Ml Ampul.neb, 1 JOSE INH QID PRN for SOB/WHEEZING, (Reported) Nitroglycerin (Nitroglycerin) 0.4 Mg Sub, 0.4 MG SL Q5MP PRN for CHEST PAIN, (Reported) Ondansetron (Ondansetron Odt) 4 Mg Tab, 4 MG PO Q8H PRN for NAUSEA OR VOMITING, (Reported) Allergies Coded Allergies: Quinolones (Verified Allergy, Intermediate, tendon pain, 11/02/18) amoxicillin (Verified Allergy, Intermediate, swelling, 11/02/18) atorvastatin (Verified Allergy, Intermediate, cough and muscle ache, 10/06 12/24) clavulanic acid (Verified Allergy, Intermediate, swelling, 11/02/18) ezetimibe (Verified Allergy, Intermediate, muscle ache, 11/02/18) pantoprazole (Verified Allergy, Intermediate, hives, 11/02/18) quinapril (Verified Allergy, Intermediate, cough, 11/02/18) JACKLYN GAMBINO MD Jan 26, 2019 13:44
[2019-01-26 14:00] VITALS: BP 121/71
[2019-01-26] MEDS: ALPRAZolam 0.5 MG TAB PO PRN (15:40)
[2019-01-26] MEDS: RIVAROXABAN 20 MG TAB (XARELTO) PO SCH (17:52)
[2019-01-26] MEDS: raNITIdine SYRUP 150 MG/10 ML UDC PO SCH (20:05)
[2019-01-26] MEDS: ISOSORBIDE MON. (IMDUR) 30 MG XR TAB PO SCH (20:05)
[2019-01-26 22:00] VITALS: BP 107/72
[2019-01-27] MEDS: methylPREDNISolone INJ 40 MG/1 ML VIAL (J2920) IV SCH ×5 (00:50→23:12)
[2019-01-27] MEDS: NORCO, ANEXSIA 5/325MG TABLET (HYDROcodone/ACETAMINOPHEN) PO SCH ×4 (01:51→20:50)
[2019-01-27] MEDS: LEVALBUTEROL 1.25 MG/0.5 ML CONCENTRATE NEB NEB SCH ×6 (04:15→23:47)
[2019-01-27 06:00] VITALS: BP 129/85
[2019-01-27 06:19] LABS: BASO % 0.1 % (0.0-1.0); HEMOGLOBIN 9.9 g/dl (13.5-17.5); LYMPH # 0.5 10^3/uL (1.5-5.0); LYMPH % 3.9 % (24.0-44.0); MEAN CORPUSCULAR HEMOGLOBIN 33.1 pg (27.0-33.0); MEAN CORPUSCULAR HGB CONC 31.9 g/dl (32.0-36.5); MEAN CORPUSCULAR VOLUME 103.7 fl (80.0-96.0); MONO # 0.5 10^3/uL (0.0-0.8); MONO % 3.7 % (0.0-5.0); NEUTROPHILS # 12.1 10^3/uL (1.5-8.5); NEUTROPHILS % 91.6 % (36.0-66.0); PLATELET COUNT, AUTOMATED 152 10^3/uL (150-450); RED BLOOD COUNT 2.99 10^6/uL (4.30-6.10); WHITE BLOOD COUNT 13.2 10^3/uL (4.0-10.0)
[2019-01-27 06:39] LABS: CALCIUM LEVEL 8.4 MG/DL (8.8-10.2); CREATININE FOR GFR 1.39 MG/DL (0.70-1.30); GLOMERULAR FILTRATION RATE 52.9 (>42); POTASSIUM SERUM 4.5 MEQ/L (3.5-5.1)
[2019-01-27] MEDS: TIOTROPIUM INHALER/CAPSULE (SPIRIVA) INH SCH (07:55)
[2019-01-27] MEDS: HumaLOG INSULIN (NovoLOG) PER UNIT SC SCH ×4 (08:39→20:52)
[2019-01-27] MEDS: CLOPIDOGREL 75 MG TAB PO SCH (08:39)
[2019-01-27] MEDS: LACTOBACILLUS ACIDOPHILUS CAP (BACID) PO SCH (08:39)
[2019-01-27] MEDS: FERROUS SULFATE 325MG TAB PO SCH (08:39)
[2019-01-27] MEDS: guaiFENesin ER 600 MG TAB PO SCH ×2 (08:40→20:51)
[2019-01-27] MEDS: METOPROLOL TART 25 MG TABLET PO SCH ×2 (08:40→18:51)
[2019-01-27] MEDS: oxyBUTYnin 5 MG TAB PO SCH ×2 (08:40→20:50)
[2019-01-27] MEDS: FLUTICASONE PROP 0.05% NASAL SPRAY 16 GM (FLONASE) NARES SCH (08:41)
[2019-01-27] MEDS: SODIUM CHLORIDE 0.9% NASAL GEL 15GM (AYR) SCH ×4 (08:42→20:53)
[2019-01-27] MEDS: cefTRIAXone SOD 2 GM in D5W MINI-BAG PLUS 50 ML IV SCH (10:51)
[2019-01-27] MEDS: DOXYCYCLINE HYCLATE 100 MG in D5W MINI-BAG PLUS 100 ML IV SCH ×2 (11:57→23:12)
--- NOTE | 2019-01-27 12:24 | IPNPDOC ---
Text Note Date of Service The patient was seen on 01/27/19. NOTE Pt was seen and examined this morning. No overnight events. States his breathing has improved. PHYSICAL EXAMINATION: GENERAL: Patient is awake, alert, oriented to person, place and time, able to provide history. No conversational dyspnea. No jugular venous distention (JVD ), thyromegaly, cervical lymphadenopathy. No cyanosis. Anicteric sclerae. No jaundice. LUNGS: Diminished bilateral wheezing. No rhonchi, no wheezing, no crackles HEART: S1, S2. Sinus rhythm. ABDOMEN: Obese, soft, nontender, nondistended. EXTREMITIES: No cyanosis or clubbing. Trace edema. Neurologically intact EKG is atrial fibrillation, ventricular rate of 79, with inferior myocardial infarction (ME), age indeterminate. MICROBIOLOGY: 01/18/2019: Sputum culture: Streptococcus pneumonia, Haemophilus parainfluenzae, acinetobacter. IMAGING STUDIES: CT chest: Filling defect left lower lobe, pulmonary arterial tree, unchanged from 05/02/2018, consistent with chronic pulmonary embolism. No acute or new pulmonary embolus. Advanced COPD, scattered areas of honeycombing, end-stage fibrosis. Tiny amount of left pleural fluid. No significant change. ASSESSMENT AND PLAN: A 78-year-old male with history of chronic fibrosis, asbestos exposure, chronic hypoxic respiratory failure on 5 liters chronically of oxygen, steroid dependent prednisone 10 mg daily, coronary artery disease (CAD), stent, inferior wall myocardial infarction (ME), hypertensive heart disease, dyslipidemia, history of pneumothorax, paroxysmal atrial fibrillation, chronic pulmonary embolism on Xarelto and Plavix for heart disease, presents to the emergency room with three week history of worsening shortness of breath, copious amounts of mucous, cough, with episodes of hemoptysis, was found to have Streptococcus pneumonia, Haemophilus parainfluenzae on his sputum culture, previously treated per the patient with cefdinir, azithromycin and Bactrim recently, presents with worsening shortness of breath. In the ER, he was found to be afebrile with no white count. 1. Streptococcus pneumonia, Haemophilus parainfluenzae in the sputum with community-acquired pneumonia in the setting of chronic obstructive pulmonary disease (COPD) with chronic hypoxic respiratory failure. Hehas been kept on Rajeev ephin. Patient's oxygen requirement is currently at baseline at 5 liters nasal cannula. He appears to be comfortable and not hypoxic. He has no conversational dyspnea on examination, able to speak with full sentences with no use of respiratory accessory muscles. He is continued on nebulizer treatments, continued on his supplemental oxygen, to be titrated to keep saturations 88-92%. Pulmonary consult appreciated As the patient is having drug resistant Haemophilus and step. The patient was seen by pulmonary and they spoke with infectious disease as well and it has been decided that the patient will possibly require 14 days of IV Rocephin. Midline has been requested for today. 2. COPD exacerbation. On tapering dose of prednisone. 3. Chronic fibrosis, chronic hypoxic respiratory failure with pulmonary hypertension and chronic pulmonary embolism. He is continued on his home dose o f Xarelto for deep (DVT)prophylaxis 4. Coronary artery disease (CAD) with history of inferior wall myocardial infarction (ME). Currently on metoprolol. Continued on his Plavix and torsemide. He appears to be euvolemic at this time. 5. Type 2 diabetes. Continue on consistent carbohydrate diet and insulin sliding scale. 6. Chronic pain. Patient has requested his home dose of hydrocodone. Will monitor for respiratory distress. 7. 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 Daily dressing changes per the , as previously recommended. 8. Paroxysmal atrial fibrillation. On metoprolol. Currently rate controlled. On anticoagulation with Xarelto. 9. Right inguinal bladder hernia. Surgery evaluated the patient, but as the patient is too high risk for any surgery. They are recommending conservative management 11. Constipation. due to opioids. bowel regimen 12. Chronic back pain. on hydrocodone. bowel regimen. Discharge disposition. Unknown at this time VSDash, I+O VSDash, I+O Laboratory Tests 01/27/19 05:52 Vital Signs Date Time Temp Pulse Resp B/P (MAP) Pulse Ox O2 Delivery O2 Flow Rate FiO2 01/27/19 09:20 18 Room Air 01/27/19 08:44 4 01/27/19 08:40 80 144/85 01/27/19 06:00 97.2 5.0 I&O- Last 24 Hours up to 6 AM 01/27/19 06:00 Intake Total 1500 ml Output Total 1035 ml Balance 465 ml KANE BARRON MD Jan 27, 2019 12:24
[2019-01-27 14:00] VITALS: BP 114/73
[2019-01-27] MEDS ORDERED: LIDOCAINE 1% MDV 20ML VIAL As Ordered ONE (17:03)
[2019-01-27] MEDS: RIVAROXABAN 20 MG TAB (XARELTO) PO SCH (18:50)
[2019-01-27] MEDS: ALPRAZolam 0.5 MG TAB PO PRN (18:51)
[2019-01-27] MEDS: SODIUM CHLORIDE 0.9% INJ 10 ML SYR IV SCH (19:00)
[2019-01-27] MEDS: ISOSORBIDE MON. (IMDUR) 30 MG XR TAB PO SCH (20:51)
[2019-01-27] MEDS: raNITIdine SYRUP 150 MG/10 ML UDC PO SCH (20:51)
[2019-01-27 22:00] VITALS: BP 119/85
[2019-01-27] MEDS: SODIUM CHLORIDE 0.9% INJ 10 ML SYR IV PRN (23:11)
[2019-01-28] MEDS: SODIUM CHLORIDE 0.9% INJ 10 ML SYR IV PRN ×3 (00:35→23:12)
[2019-01-28] MEDS: NORCO, ANEXSIA 5/325MG TABLET (HYDROcodone/ACETAMINOPHEN) PO SCH ×4 (02:00→20:32)
[2019-01-28] MEDS: LEVALBUTEROL 1.25 MG/0.5 ML CONCENTRATE NEB NEB SCH ×6 (04:50→23:57)
[2019-01-28] MEDS: methylPREDNISolone INJ 40 MG/1 ML VIAL (J2920) IV SCH ×4 (05:53→23:12)
[2019-01-28 06:00] VITALS: BP 143/70
[2019-01-28 06:51] LABS: BASO % 0.1 % (0.0-1.0); HEMATOCRIT 31.4 % (42.0-52.0); LYMPH # 0.6 10^3/uL (1.5-5.0); LYMPH % 4.7 % (24.0-44.0); MEAN CORPUSCULAR HEMOGLOBIN 33.2 pg (27.0-33.0); MEAN CORPUSCULAR HGB CONC 31.8 g/dl (32.0-36.5); MEAN CORPUSCULAR VOLUME 104.3 fl (80.0-96.0); MONO # 0.4 10^3/uL (0.0-0.8); MONO % 2.9 % (0.0-5.0); NEUTROPHILS # 11.2 10^3/uL (1.5-8.5); NEUTROPHILS % 91.4 % (36.0-66.0); PLATELET COUNT, AUTOMATED 130 10^3/uL (150-450); RED BLOOD COUNT 3.01 10^6/uL (4.30-6.10); WHITE BLOOD COUNT 12.2 10^3/uL (4.0-10.0)
[2019-01-28 07:07] LABS: BLOOD UREA NITROGEN 35 MG/DL (7-18); CALCIUM LEVEL 9.2 MG/DL (8.8-10.2); CARBON DIOXIDE LEVEL 31 MEQ/L (21-32); CHLORIDE LEVEL 99 MEQ/L (98-107); GLOMERULAR FILTRATION RATE > 60.0 (>42); GLUCOSE, FASTING 192 MG/DL (70-100); POTASSIUM SERUM 4.6 MEQ/L (3.5-5.1); SODIUM LEVEL 136 MEQ/L (136-145)
[2019-01-28] MEDS: TIOTROPIUM INHALER/CAPSULE (SPIRIVA) INH SCH (07:20)
[2019-01-28] MEDS: HumaLOG INSULIN (NovoLOG) PER UNIT SC SCH ×4 (08:04→20:32)
[2019-01-28] MEDS: oxyBUTYnin 5 MG TAB PO SCH ×2 (08:06→20:32)
[2019-01-28] MEDS: LACTOBACILLUS ACIDOPHILUS CAP (BACID) PO SCH (08:07)
[2019-01-28] MEDS: FERROUS SULFATE 325MG TAB PO SCH (08:07)
[2019-01-28] MEDS: METOPROLOL TART 25 MG TABLET PO SCH ×2 (08:07→17:38)
[2019-01-28] MEDS: guaiFENesin ER 600 MG TAB PO SCH ×2 (08:07→20:32)
[2019-01-28] MEDS: CLOPIDOGREL 75 MG TAB PO SCH (08:07)
[2019-01-28] MEDS: SODIUM CHLORIDE 0.9% NASAL GEL 15GM (AYR) SCH ×4 (08:08→20:33)
[2019-01-28] MEDS: FLUTICASONE PROP 0.05% NASAL SPRAY 16 GM (FLONASE) NARES SCH (08:08)
[2019-01-28] MEDS: TORSEMIDE 10 MG TABLET PO SCH ×2 (09:00→17:37)
[2019-01-28] MEDS ORDERED: PREVNAR 13 VACCINE SYRINGE (CPT CODE:90670) IM ONE (09:00)
[2019-01-28] MEDS: cefTRIAXone SOD 2 GM in D5W MINI-BAG PLUS 50 ML IV SCH (11:07)
[2019-01-28] MEDS ORDERED: NITROGLYCERIN 0.4 MG SUBL TABLET SL PRN (11:15)
[2019-01-28] MEDS: DOXYCYCLINE HYCLATE 100 MG in D5W MINI-BAG PLUS 100 ML IV SCH ×2 (12:13→23:12)
--- NOTE | 2019-01-28 12:17 | IPNPDOC ---
Text Note Date of Service The patient was seen on 01/28/19. NOTE Pt was seen and examined this morning. No overnight events. States his breathing has improved. PHYSICAL EXAMINATION: GENERAL: Patient is awake, alert, oriented to person, place and time, able to provide history. No conversational dyspnea. No jugular venous distention (JVD ), thyromegaly, cervical lymphadenopathy. No cyanosis. Anicteric sclerae. No jaundice. LUNGS: Diminished bilateral wheezing. No rhonchi, no wheezing, no crackles HEART: S1, S2. Sinus rhythm. ABDOMEN: Obese, soft, nontender, nondistended. EXTREMITIES: No cyanosis or clubbing. Trace edema. Neurologically intact EKG is atrial fibrillation, ventricular rate of 79, with inferior myocardial infarction (NH), age indeterminate. MICROBIOLOGY: 01/18/2019: Sputum culture: Streptococcus pneumonia, Haemophilus parainfluenzae, acinetobacter. IMAGING STUDIES: CT chest: Filling defect left lower lobe, pulmonary arterial tree, unchanged from 05/02/2018, consistent with chronic pulmonary embolism. No acute or new pulmonary embolus. Advanced COPD, scattered areas of honeycombing, end-stage fibrosis. Tiny amount of left pleural fluid. No significant change. ASSESSMENT AND PLAN: A 78-year-old male with history of chronic fibrosis, asbestos exposure, chronic hypoxic respiratory failure on 5 liters chronically of oxygen, steroid dependent prednisone 10 mg daily, coronary artery disease (CAD), stent, inferior wall myocardial infarction (NH), hypertensive heart disease, dyslipidemia, history of pneumothorax, paroxysmal atrial fibrillation, chronic pulmonary embolism on Xarelto and Plavix for heart disease, presents to the emergency room with three week history of worsening shortness of breath, copious amounts of mucous, cough, with episodes of hemoptysis, was found to have Streptococcus pneumonia, Haemophilus parainfluenzae on his sputum culture, previously treated per the patient with cefdinir, azithromycin and Bactrim recently, presents with worsening shortness of breath. In the ER, he was found to be afebrile with no white count. 1. Streptococcus pneumonia, Haemophilus parainfluenzae in the sputum with community-acquired pneumonia in the setting of chronic obstructive pulmonary disease (COPD) with chronic hypoxic respiratory failure. Hehas been kept on Rajeev ephin. Patient's oxygen requirement is currently at baseline at 5 liters nasal cannula. He appears to be comfortable and not hypoxic. He has no conversational dyspnea on examination, able to speak with full sentences with no use of respiratory accessory muscles. He is continued on nebulizer treatments, continued on his supplemental oxygen, to be titrated to keep saturations 88-92%. Pulmonary consult appreciated As the patient is having drug resistant Haemophilus and step. The patient was seen by pulmonary and they spoke with infectious disease as well and it has been decided that the patient will possibly require 14 days of IV Rocephin. Midline already placed 2. COPD exacerbation. On tapering dose of prednisone. 3. Chronic fibrosis, chronic hypoxic respiratory failure with pulmonary hypertension and chronic pulmonary embolism. He is continued on his home dose of Xarelto for deep (DVT)prophylaxis 4. Coronary artery disease (CAD) with history of inferior wall myocardial in farction (NH). Currently on metoprolol. Continued on his Plavix and torsemide. He appears to be euvolemic at this time. 5. Type 2 diabetes. Continue on consistent carbohydrate diet and insulin sliding scale. 6. Chronic pain. Patient has requested his home dose of hydrocodone. Will monitor for respiratory distress. 7. 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 Daily dressing changes per the , as previously recommended. 8. Paroxysmal atrial fibrillation. On metoprolol. Currently rate controlled. On anticoagulation with Xarelto. 9. Right inguinal bladder hernia. Surgery evaluated the patient, but as the patient is too high risk for any surgery. They are recommending conservative management 11. Constipation. due to opioids. bowel regimen 12. Chronic back pain. on hydrocodone. bowel regimen. Discharge disposition. Unknown at this time VSDash, I+O VSDash I+O Laboratory Tests 01/28/19 06:26 Vital Signs Date Time Temp Pulse Resp B/P (MAP) Pulse Ox O2 Delivery O2 Flow Rate FiO2 01/28/19 11:24 108/76 01/28/19 08:07 83 01/28/19 07:33 18 Nasal Cannula 4.0 01/28/19 06:00 97.0 96 I&O- Last 24 Hours up to 6 AM 01/28/19 06:00 Intake Total 1330 ml Output Total 150 ml Balance 1180 ml KANE BARRON MD Jan 28, 2019 12:17
--- NOTE | 2019-01-28 12:17 | CCN ---
DATE OF SERVICE: 01/28/2019 PULMONARY NOTE: Mr. Padron is seen on [facility]. He reports that his breathing has been improving. He did have an episode of chest pressure earlier and is currently being evaluated by the medical team with cardiac enzymes and an electrocardiogram (EKG). He reports the chest pressure has resolved after administration of nitroglycerin. The patient states in regards to his pneumonia his breathing has been better. He is able to mobilize more mucus. He underwent midline insertion yesterday. He has been afebrile. PHYSICAL EXAMINATION: Vital signs: Temperature 97.0, pulse 83, respiratory rate 18, blood pressure 108/76, pulse oximetry 96% on 4 liters by nasal cannula. General: The patient is alert and oriented times three. He speaks in complete sentences. HEENT: Head is normocephalic, atraumatic. Moist mucous membranes. Tongue is midline. Neck: Neck is supple. No cervical lymphadenopathy. No tracheal deviation. Jugular venous pulse (JVP) is difficult to assess due to body habitus. Cardiac: Regular, S1, S2. No murmurs. Pulmonary: Bibasilar rales. No obvious rhonchi or wheezing appreciated. Abdomen: Obese. Positive bowel sounds, soft, nontender. Extremities: Chronic venous stasis changes. Trace edema. LABORATORY DATA: WBC 12.2, hemoglobin 10.0, hematocrit 31.4, platelets 130. Sodium 136, potassium 4.6, chloride 99, carbon dioxide 31, BUN 35, creatinine is 1.00, glucose 192, calcium 9.2. ASSESSMENT/PLAN: 1. Idiopathic pulmonary fibrosis with bronchiectasis exacerbation growing strep pneumoniae. The patient has failed outpatient oral therapy with cefdinir and azithromycin. He is getting IV doxycycline and IV ceftriaxone. He will likely require continued IV antibiotic therapy for the duration of his therapy due to the fact that he failed outpatient oral therapy and this is a fairly resistant organism. The patient is also on IV Solu-Medrol. He will continue with nebulized therapy. 2. Renal insufficiency. The patient's diuretic therapy of torsemide 20 mg twice a day has been held. His renal function has been doing okay. Plan will be to add the torsemide back at 20 mg twice a day. Continue to monitor fluid volume status closely.
[2019-01-28 14:00] VITALS: BP 113/76
[2019-01-28] MEDS: ALPRAZolam 0.5 MG TAB PO PRN (14:00)
[2019-01-28] MEDS: RIVAROXABAN 20 MG TAB (XARELTO) PO SCH (17:37)
[2019-01-28] MEDS: SODIUM CHLORIDE 0.9% INJ 10 ML SYR IV SCH (18:55)
[2019-01-28] MEDS: ISOSORBIDE MON. (IMDUR) 30 MG XR TAB PO SCH (20:32)
[2019-01-28] MEDS: raNITIdine SYRUP 150 MG/10 ML UDC PO SCH (20:32)
[2019-01-28 22:00] VITALS: BP 117/75
[2019-01-29 00:10] LABS: MYCOPLASMA PNEUMONIAE IgG 279 U/mL (0-99); MYCOPLASMA PNEUMONIAE IgM <770 U/mL (0-769)
[2019-01-29] MEDS: NORCO, ANEXSIA 5/325MG TABLET (HYDROcodone/ACETAMINOPHEN) PO SCH ×2 (01:59→08:46)
[2019-01-29] MEDS: LEVALBUTEROL 1.25 MG/0.5 ML CONCENTRATE NEB NEB SCH ×2 (04:14→07:41)
[2019-01-29 06:00] VITALS: BP 126/83
[2019-01-29] MEDS: methylPREDNISolone INJ 40 MG/1 ML VIAL (J2920) IV SCH (06:16)
[2019-01-29 06:20] LABS: BASO % 0.1 % (0.0-1.0); HEMATOCRIT 29.4 % (42.0-52.0); HEMOGLOBIN 9.2 g/dl (13.5-17.5); LYMPH # 0.3 10^3/uL (1.5-5.0); LYMPH % 2.7 % (24.0-44.0); MEAN CORPUSCULAR HEMOGLOBIN 32.2 pg (27.0-33.0); MEAN CORPUSCULAR HGB CONC 31.3 g/dl (32.0-36.5); MEAN CORPUSCULAR VOLUME 102.8 fl (80.0-96.0); MONO # 0.4 10^3/uL (0.0-0.8); MONO % 3.5 % (0.0-5.0); NEUTROPHILS # 11.4 10^3/uL (1.5-8.5); NEUTROPHILS % 91.8 % (36.0-66.0); PLATELET COUNT, AUTOMATED 134 10^3/uL (150-450); RED BLOOD COUNT 2.86 10^6/uL (4.30-6.10); WHITE BLOOD COUNT 12.4 10^3/uL (4.0-10.0)
[2019-01-29 06:46] LABS: CALCIUM LEVEL 8.5 MG/DL (8.8-10.2); CREATININE FOR GFR 1.28 MG/DL (0.70-1.30); GLOMERULAR FILTRATION RATE 58.2 (>42); POTASSIUM SERUM 4.1 MEQ/L (3.5-5.1)
[2019-01-29] MEDS: TIOTROPIUM INHALER/CAPSULE (SPIRIVA) INH SCH (07:41)
[2019-01-29] MEDS: ALPRAZolam 0.5 MG TAB PO PRN (08:28)
[2019-01-29 08:31] VITALS: BP 133/84
--- NOTE | 2019-01-29 08:31 | DS.PDOC ---
Discharge Summary General Date of Admission Jan 24, 2019 at 08:54 Date of Discharge 01/29/19 Discharge Summary Chief complaints Shortness of breath Pneumonia Final diagnosis Haemophilus influenza and strep pneumonia Acute exacerbation of idiopathic pulmonary fibrosis Atrial fibrillation History of present illness and Hospital course A 78-year-old male with history of chronic fibrosis, asbestos exposure, chronic hypoxic respiratory failure on 5 liters chronically of oxygen, steroid dependent prednisone 10 mg daily, coronary artery disease (CAD), stent, inferior wall myocardial infarction (OR), hypertensive heart disease, dyslipidemia, history of pneumothorax, paroxysmal atrial fibrillation, chronic pulmonary embolism on Xarelto and Plavix for heart disease, presents to the emergency room with three week history of worsening shortness of breath, copious amounts of mucous, cough, with episodes of hemoptysis, was found to have Streptococcus pneumonia, Haemophilus parainfluenzae on his sputum culture, previously treated per the patient with cefdinir, azithromycin and Bactrim recently, presents with worsening shortness of breath. In the ER, he was found to be afebrile with no white count. For his Streptococcus pneumonia, Haemophilus parainfluenzae in the sputum with community-acquired pneumonia in the setting of chronic obstructive pulmonary disease (COPD) with chronic hypoxic respiratory failure. He has been kept on Rocephin. Patient's oxygen requirement is currently at baseline at 5 liters nasal cannula. He appears to be comfortable and not hypoxic. He has no conversational dyspnea on examination, able to speak with full sentences with no use of respiratory accessory muscles. As the patient is having drug resistant Haemophilus and step. The patient was seen by pulmonary and they spoke with infectious disease as well and it has been decided that the patient will require 14 days of IV Rocephin. Midline already placed, infusion set up at home. For his COPD exacerbation. On tapering dose of prednisone. For hs Chronic fibrosis, chronic hypoxic respiratory failure with pulmonary hypertension and chronic pulmonary embolism. He is continued on his home dose of Xarelto. For his Coronary artery disease (CAD) with history of inferior wall myocardial infarction (OR). Currently on metoprolol. Continued on his Plavix and torsemide. He appears to be euvolemic at this time. For his Paroxysmal atrial fibrillation. On metoprolol. Currently rate controlled. On anticoagulation with Xarelto. For his Right inguinal bladder hernia. Surgery evaluated the patient, but as the patient is too high risk for any surgery. They are recommending conservative management PHYSICAL EXAMINATION: GENERAL: Patient is awake, alert, oriented to person, place and time, able to provide history. No conversational dyspnea. No jugular venous distention (JVD), thyromegaly, cervical lymphadenopathy. No cyanosis. Anicteric sclerae. No jaundice. LUNGS: Diminished bilateral wheezing. No rhonchi, no wheezing, no crackles HEART: S1, S2. Sinus rhythm. ABDOMEN: Obese, soft, nontender, nondistended. EXTREMITIES: No cyanosis or clubbing. Trace edema. Neurologically intact Medications. As per discharge reconciliation medication list Activity as tolerated Diet. 2 g sodium diet Follow-up appointments. PCP in 1 week, pulmonology in 1 week. Condition on discharge. Patient is medically optimized for discharge Discharge disposition: Home with home health Total time spent on this discharge including coordination of care, review of chart documentation and actual contact is around 35 minutes Vital Signs/I&Os Vital Signs Date Time Temp Pulse Resp B/P (MAP) Pulse Ox O2 Delivery O2 Flow Rate FiO2 01/29/19 06:00 98.0 69 20 126/83 (97) 100 Nasal Cannula 5.0 I&O- Last 24 Hours up to 6 AM 01/29/19 06:00 Intake Total 1730 ml Output Total 2625 ml Balance -895 ml Laboratory Data Labs 24H Laboratory Tests 2 01/28/19 11:37: Bedside Glucose (Misc Panel) 273H 01/28/19 11:49: Troponin I < 0.02 01/28/19 16:34: Bedside Glucose (Misc Panel) 171H 01/28/19 19:39: Bedside Glucose (Misc Panel) 315H 01/29/19 05:52: Immature Granulocyte % (Auto) 1.9, Neutrophils (%) (Auto) 91.8H, Lymphocytes (%) (Auto) 2.7L, Monocytes (%) (Auto) 3.5, Eosinophils (%) (Auto) 0.0, Basophils (%) (Auto) 0.1, Neutrophils # (Auto) 11.4H, Lymphocytes # (Auto) 0.3L, Monocytes # (Auto) 0.4, Eosinophils # (Auto) 0.0, Basophils # (Auto) 0.0, Nucleated Red Blood Cells % (auto) 0.2H, Anion Gap 7L, Glomerular Filtration Rate 58.2, Calcium Level 8.5L CBC/BMP Laboratory Tests 01/29/19 05:52 FSBS Laboratory Tests Test 01/28/19 11:37 01/28/19 16:34 01/28/19 19:39 Range/Units Bedside Glucose (Misc Panel) 273 171 315 83-110 MG/DL Microbiology Microbiology 01/24/19 Respiratory Virus Panel (PCR) (RIZWAN) - Final, Complete 01/24/19 Gram Stain - Final, Complete 01/24/19 Sputum Culture - Final, Complete Streptococcus Pneumoniae Pseudomonas Fluorescens 01/24/19 Blood Culture - Preliminary, Resulted No Growth after 72 hours. All specime... 01/24/19 Blood Culture - Final, Complete NO GROWTH AFTER 5 DAYS Discharge Medications Scheduled Clopidogrel Bisulfate (Plavix) 75 Mg Tab, 75 MG PO DAILY, (Reported) Ferrous Sulfate (Ferrous Sulfate) 325 Mg Tablet, 325 MG PO DAILY, (Reported) Guaifenesin (Mucinex) 600 Mg Tab.er.12h, 600 MG PO BID, (Reported) Isosorbide Mononitrate (Isosorbide Mononitrate ER) 30 Mg Tab.er.24h, 30 MG PO QHS, (Reported) Metoprolol Tartrate (Metoprolol Tartrate) 25 Mg Tab, 25 MG PO BID, (Reported) Mometasone Furoate Monohydrate (Nasonex) 17 Gm [place].pump, 2 SPRAY NARES DAILY, (Reported) Prednisone (Prednisone) 10 Mg Tab, 10 MG PO DAILY, (Reported) RESUME AFTER TAPER Prednisone (Prednisone) 10 Mg Tablet, 10 MG PO TAPER, (Reported) Take 40 MG daily x5days, 30mg daily x5days, 20mg daily x5 days then resume 10mg regular daily dose. Pt to start 30mg dose today 01/24/19 Ranitidine HCl (Ranitidine HCl) 300 Mg Tablet, 1 TAB PO QHS, (Reported) Rivaroxaban (Xarelto) 20 Mg Tab, 20 MG PO QPM, (Reported) Sulfamethoxazole/Trimethoprim (Sulfamethoxazole-Tmp Ds Tablet) 1 Each Tablet, 1 TAB PO 3XW, (Reported) MON/WED/FRI Tiotropium Mathis (Spiriva) 18 Mcg Cap, 18 MCG INH DAILY, (Reported) Torsemide (Torsemide) 20 Mg Tab, 20 MG PO BID, (Reported) TAKES AM/NOON Scheduled PRN Albuterol Sulfate (Ventolin Hfa) 18 Gm Hfa.aer.ad, 2 PUFF INH Q4H PRN for SOB/WHEEZING, (Reported) Alprazolam (Xanax) 0.5 Mg Tab, 0.5 MG PO BID PRN for ANXIETY, (Reported) Ciclopirox (Ciclopirox) 30 Gm Gel..gram., 1 APLCT TOP BID PRN for ITCHING, (Reported) APPLY TO FEET Hydrocodone/Acetaminophen (Hydrocodone-Acetamin 5-325 mg) 1 Tab Tab, 2 TAB PO Q6H PRN for PAIN, (Reported) Ipratropium/Albuterol Sulfate (Iprat-Albut 0.5-3(2.5) mg/3 ml) 3 Ml Ampul.neb, 1 JOSE INH QID PRN for SOB/WHEEZING, (Reported) Nitroglycerin (Nitroglycerin) 0.4 Mg Sub, 0.4 MG SL Q5MP PRN for CHEST PAIN, (Reported) Ondansetron (Ondansetron Odt) 4 Mg Tab, 4 MG PO Q8H PRN for NAUSEA OR VOMITING, (Reported) Allergies Coded Allergies: Quinolones (Verified Allergy, Intermediate, tendon pain, 11/02/18) amoxicillin (Verified Allergy, Intermediate, swelling, 11/02/18) atorvastatin (Verified Allergy, Intermediate, cough and muscle ache, 11/02/18) clavulanic acid (Verified Allergy, Intermediate, swelling, 11/02/18) ezetimibe (Verified Allergy, Intermediate, muscle ache, 11/02/18) pantoprazole (Verified Allergy, Intermediate, hives, 11/02/18) quinapril (Verified Allergy, Intermediate, cough, 11/02/18) KANE BARRON MD Jan 29, 2019 08:31
[2019-01-29] MEDS: TORSEMIDE 10 MG TABLET PO SCH (08:42)
[2019-01-29] MEDS: LACTOBACILLUS ACIDOPHILUS CAP (BACID) PO SCH (08:42)
[2019-01-29] MEDS: guaiFENesin ER 600 MG TAB PO SCH (08:42)
[2019-01-29] MEDS: FERROUS SULFATE 325MG TAB PO SCH (08:42)
[2019-01-29] MEDS: CLOPIDOGREL 75 MG TAB PO SCH (08:42)
[2019-01-29] MEDS: oxyBUTYnin 5 MG TAB PO SCH (08:42)
[2019-01-29] MEDS: HumaLOG INSULIN (NovoLOG) PER UNIT SC SCH (08:43)
[2019-01-29 08:44] VITALS: BP 133/84
[2019-01-29] MEDS: METOPROLOL TART 25 MG TABLET PO SCH (08:44)
[2019-01-29] MEDS: SODIUM CHLORIDE 0.9% NASAL GEL 15GM (AYR) SCH (08:45)
[2019-01-29] MEDS: FLUTICASONE PROP 0.05% NASAL SPRAY 16 GM (FLONASE) NARES SCH (08:45)
--- NOTE | 2019-01-29 12:22 | ECGEPIP ---
[facility] Test Date: 2019-01-28 Pat Name: SANDEE VALLE Department: Room: C1141-36 Gender: Male Hearing Consultant: DILIP : 1940 Requested By: KANE Melgar Order Number: [id number] Reading MD: Jonah Mitchell Measurements Intervals [place] Rate: 73 P: CT: 0 QRS: -14 QRSD: 99 T: -29 QT: 336 QTc: 372 Interpretive Statements Underlying atrial fibrillation with controlled ventricular response Left ventricular hypertrophy by Kirt criteria Likely prior inferoposterior myocardial infarction No change from 01/24/19 Electronically Signed on 01-29-2019 12:22:26 EDT by Jonah Mitchell
--- NOTE | 2019-01-30 17:47 | REP ---
MIDLINE INSERTION WITH ULTRASOUND GUIDANCE: REASON FOR EXAM: PROCEDURE: Midline catheter insertion under ultrasound guidance. This procedure was performed by CARLOS Reese, under the direct supervision of Dr. Eaton. The risks and benefits of the procedure were explained to the patient and informed consent was obtained prior to the procedure both verbally and written. Directly prior to the start of the procedure, a formal timeout was completed in the procedure room. The the lateral right brachial vein was localized using ultrasound guidance. The skin was prepped and draped in a sterile fashion. 1% lidocaine was used as a local anesthetic. Using ultrasound guidance the lateral right brachial vein was cannulated and a 0.018 guidewire was inserted. The needle was removed and a 5.5 Nigerien dilator and a Peel-Away sheath was inserted over the guidewire. A 5.5 [place] dual lumen catheter was cut to the length of 8 cm. The dilator was removed and the catheter was inserted over the guidewire. The Peel-Away sheath was removed and the catheter was flushed with heparinized saline as per hospital protocol. The catheter was affixed to the skin and a sterile dressing was applied. The patient tolerated the procedure well and there were no immediate complications. Reviewed by CARLOS Hernandez 01/28/2019 08:40 A Electronically Signed by Gilmer Eaton MD 01/30/2019 05:38 P
== END 2019-01-29 11:08 | disposition home health service (06) | DRG 194 ==
LOC: M ED 06:40 → M ED INP 08:54 → M MSPAV 14:10
PROVIDERS: ADMIT General Practice; ATTEND Internal Medicine
PROC: 05H933Z Insertion of Infusion Device into Right Brachial Vein, Percutaneous Approach (ICD-10-PCS; principal; 2019-01-27 16:00)
DX: J14 Pneumonia due to Hemophilus influenzae (principal); J47.1 Bronchiectasis with (acute) exacerbation; J96.11 Chronic respiratory failure with hypoxia; I27.82 Chronic pulmonary embolism; J84.10 Pulmonary fibrosis, unspecified; Z79.01 Long term (current) use of anticoagulants; J13 Pneumonia due to Streptococcus pneumoniae; Z79.52 Long term (current) use of systemic steroids; I25.10 Atherosclerotic heart disease of native coronary artery without angina pectoris; I25.2 Old myocardial infarction; Z95.5 Presence of coronary angioplasty implant and graft; Z79.02 Long term (current) use of antithrombotics/antiplatelets; E11.65 Type 2 diabetes mellitus with hyperglycemia; I48.0 Paroxysmal atrial fibrillation; D69.6 Thrombocytopenia, unspecified; G47.33 Obstructive sleep apnea (adult) (pediatric); Z88.0 Allergy status to penicillin; Z88.1 Allergy status to other antibiotic agents; Z88.8 Allergy status to other drugs, medicaments and biological substances; Z77.090 Contact with and (suspected) exposure to asbestos; Z79.899 Other long term (current) drug therapy; I27.20 Pulmonary hypertension, unspecified; R33.0 Drug induced retention of urine; K59.03 Drug induced constipation; T40.2X5A Adverse effect of other opioids, initial encounter; C44.320 Squamous cell carcinoma of skin of unspecified parts of face; Z99.81 Dependence on supplemental oxygen; K40.90 Unilateral inguinal hernia, without obstruction or gangrene, not specified as recurrent; D72.829 Elevated white blood cell count, unspecified

== ENCOUNTER → 2019-02-02 | Outpatient (REF) | payer MEDICARE, OTHER ==
[~2019-02-02] MED LIST changes: +CEFD300CAP PO; +CICL0.776 TOP; +FERR1TAB8 PO; +IPRA0.00 INH; +ISOS30TA4 PO; +MOME50SP NARES; +MUCI600T31 PO; +RANI300T PO; +SULF1TAB93 PO
[2019-02-02 15:08] LABS: HEMATOCRIT 34.6 % (42.0-52.0); MEAN CORPUSCULAR HEMOGLOBIN 33.1 pg (27.0-33.0); MEAN CORPUSCULAR HGB CONC 31.8 g/dl (32.0-36.5); MEAN CORPUSCULAR VOLUME 104.2 fl (80.0-96.0); PLATELET COUNT, AUTOMATED 142 10^3/uL (150-450); RED BLOOD COUNT 3.32 10^6/uL (4.30-6.10); WHITE BLOOD COUNT 12.5 10^3/uL (4.0-10.0)
[2019-02-02 15:30] LABS: ALBUMIN 3.1 GM/DL (3.2-5.2); ALT/SGPT 30 U/L (12-78); BILIRUBIN,TOTAL 0.5 MG/DL (0.2-1.0); BLOOD UREA NITROGEN 26 MG/DL (7-18); CALCIUM LEVEL 8.5 MG/DL (8.8-10.2); CARBON DIOXIDE LEVEL 39 MEQ/L (21-32); CHLORIDE LEVEL 95 MEQ/L (98-107); GLOMERULAR FILTRATION RATE > 60.0 (>42); GLUCOSE, FASTING 187 MG/DL (70-100); SODIUM LEVEL 138 MEQ/L (136-145)
== END ==
LOC: M LAB REF 14:51 → M SHH 14:51
PROVIDERS: ATTEND Internal Medicine Pulmonary Disease
DX: J13 Pneumonia due to Streptococcus pneumoniae (principal)

== ENCOUNTER → 2019-02-09 | Outpatient (REF) | payer MEDICARE, OTHER | LOC: M LAB REF 09:50 → EEVIPCON 09:50 | PROVIDERS: ATTEND Internal Medicine Pulmonary Disease | DX: J13 Pneumonia due to Streptococcus pneumoniae (principal) ==

== ENCOUNTER 2019-02-16 12:32 | Emergency (ER) | payer MEDICARE, OTHER ==
[~2019-02-16] VITALS: Ht 172.7 cm; Wt 91.8 kg
--- NOTE | 2019-02-16 14:23 | REP ---
Three views left shoulder: 02/16/2019. Indication: Shoulder pain and tenderness. Comparison: CT dated 01/24/2019 and chest x-ray dated 01/18/2019. Findings: The glenohumeral joint is significantly narrowed with extensive osteoarthritic sequelae. The humeral head is high-riding suggesting rotator cuff injury. There is no evidence of acute fracture. Extensive fibrosis of the visualized lungs is noted. Impression: There is no evidence of acute osseous injury of the left shoulder. Extensive degenerative sequelae. Electronically Signed by Dane Peralta DO 02/16/2019 02:15 P
[2019-02-16 15:04] VITALS: BP 125/84
== END 2019-02-16 15:19 | disposition home or self-care (01) ==
LOC: M ED 12:32
DX: M19.012 Primary osteoarthritis, left shoulder (principal); S46.002A Unspecified injury of muscle(s) and tendon(s) of the rotator cuff of left shoulder, initial encounter; X58.XXXA Exposure to other specified factors, initial encounter; Y92.89 Other specified places as the place of occurrence of the external cause; E11.9 Type 2 diabetes mellitus without complications; I10 Essential (primary) hypertension; J44.9 Chronic obstructive pulmonary disease, unspecified; I48.91 Unspecified atrial fibrillation; K21.9 Gastro-esophageal reflux disease without esophagitis; E78.5 Hyperlipidemia, unspecified; F41.9 Anxiety disorder, unspecified; Z95.5 Presence of coronary angioplasty implant and graft; Z99.81 Dependence on supplemental oxygen; Z79.899 Other long term (current) drug therapy; Z79.01 Long term (current) use of anticoagulants; Z88.0 Allergy status to penicillin; Z88.1 Allergy status to other antibiotic agents; Z88.8 Allergy status to other drugs, medicaments and biological substances

== ENCOUNTER → 2019-04-06 | Outpatient (REF) | payer MEDICARE, OTHER ==
[2019-04-06 13:21] LABS: PERCENT SATURATION 22.9 % (19.7-50.0)
== END ==
LOC: M LAB REF 12:36
PROVIDERS: ATTEND Internal Medicine
DX: D50.9 Iron deficiency anemia, unspecified (principal)

== ENCOUNTER 2019-06-13 00:52 | Emergency (ER) | payer MEDICARE, OTHER ==
[~2019-06-13] VITALS: Ht 172.7 cm; Wt 87.7 kg
[2019-06-13] MEDS ORDERED: OXYMETAZOLINE NASAL SPRAY (AFRIN) ONE (01:30)
[2019-06-13] MEDS ORDERED: FURO20TA2 PO (03:02)
[2019-06-13] MEDS ORDERED: MORP20SO3 SL (03:02)
[2019-06-13] MEDS ORDERED: CBD OIL (03:02)
[2019-06-13 03:17] LABS: BASO % 0.1 % (0.0-1.0); EOS % 0.1 % (0.0-3.0); HEMATOCRIT 29.1 % (42.0-52.0); HEMOGLOBIN 9.2 g/dl (13.5-17.5); LYMPH # 1.3 10^3/uL (1.5-5.0); LYMPH % 13.3 % (24.0-44.0); MEAN CORPUSCULAR HEMOGLOBIN 32.7 pg (27.0-33.0); MEAN CORPUSCULAR HGB CONC 31.6 g/dl (32.0-36.5); MEAN CORPUSCULAR VOLUME 103.6 fl (80.0-96.0); MONO # 0.7 10^3/uL (0.0-0.8); MONO % 7.4 % (0.0-5.0); NEUTROPHILS # 7.4 10^3/uL (1.5-8.5); NEUTROPHILS % 78.6 % (36.0-66.0); PLATELET COUNT, AUTOMATED 161 10^3/uL (150-450); RED BLOOD COUNT 2.81 10^6/uL (4.30-6.10); WHITE BLOOD COUNT 9.4 10^3/uL (4.0-10.0)
[2019-06-13 03:28] LABS: INR 2.77; PROTHROMBIN TIME 29.2 SECONDS (11.8-14.0)
[2019-06-13 03:59] LABS: BLOOD UREA NITROGEN 27 MG/DL (7-18); CALCIUM LEVEL 8.2 MG/DL (8.8-10.2); CARBON DIOXIDE LEVEL 32 MEQ/L (21-32); CHLORIDE LEVEL 101 MEQ/L (98-107); CREATININE FOR GFR 1.17 MG/DL (0.70-1.30); GLOMERULAR FILTRATION RATE > 60.0 (>42); GLUCOSE, FASTING 165 MG/DL (70-100); POTASSIUM SERUM 4.2 MEQ/L (3.5-5.1); SODIUM LEVEL 139 MEQ/L (136-145)
[2019-06-13 04:55] VITALS: BP 157/95
== END 2019-06-13 04:50 | disposition home or self-care (01) ==
LOC: M ED 00:52
DX: R04.0 Epistaxis (principal); I25.10 Atherosclerotic heart disease of native coronary artery without angina pectoris; J84.112 Idiopathic pulmonary fibrosis; Z99.81 Dependence on supplemental oxygen; Z79.899 Other long term (current) drug therapy; Z79.01 Long term (current) use of anticoagulants; Z88.0 Allergy status to penicillin; Z88.1 Allergy status to other antibiotic agents; Z88.8 Allergy status to other drugs, medicaments and biological substances

== ENCOUNTER → 2019-08-03 | Outpatient (REF) | payer MEDICARE, OTHER ==
[~2019-08-03] MED LIST changes: +CBD OIL; +FURO20TA2 PO; +MORP20SO3 SL
[2019-08-03 18:07] LABS: PERCENT SATURATION 13.2 % (19.7-50.0)
== END ==
LOC: M LAB REF 17:22
PROVIDERS: ATTEND Internal Medicine
DX: D50.9 Iron deficiency anemia, unspecified (principal)

== ENCOUNTER → 2019-08-17 | Outpatient (CLI) | payer MEDICARE, OTHER ==
[~2019-08-17] MED LIST changes: +ASPI81CH33 PO; -ASPI81TA85 PO; +ASPI81TA86 PO; +CICL0.7733 TOP; -CICL0.776 TOP; +FAMO40TA3 PO; +ISOS1TAB35 PO; -ISOS30TA4 PO
[2019-08-17 15:37] LABS: HEMATOCRIT 31.1 % (42.0-52.0); HEMOGLOBIN 9.4 g/dl (13.5-17.5); MEAN CORPUSCULAR HGB CONC 30.2 g/dl (32.0-36.5); MEAN CORPUSCULAR VOLUME 102.6 fl (80.0-96.0); PLATELET COUNT, AUTOMATED 244 10^3/uL (150-450); RED BLOOD COUNT 3.03 10^6/uL (4.30-6.10); WHITE BLOOD COUNT 13.8 10^3/uL (4.0-10.0)
== END ==
LOC: M PLALAB 13:20
PROVIDERS: ATTEND Internal Medicine Pulmonary Disease
DX: M54.6 Pain in thoracic spine (principal)

== ENCOUNTER → 2019-09-04 | Outpatient (REF) | payer MEDICARE, OTHER ==
[~2019-09-04] MED LIST changes: -ASPI81CH33 PO; +ASPI81TA85 PO; -ASPI81TA86 PO; -CICL0.7733 TOP; +CICL0.776 TOP; -ISOS1TAB35 PO; +ISOS30TA4 PO
== END ==
LOC: M LAB REF 18:07
PROVIDERS: ATTEND Internal Medicine Pulmonary Disease
DX: R05 Cough (principal); J47.1 Bronchiectasis with (acute) exacerbation

== ENCOUNTER 2019-09-06 12:13 | Inpatient (IN) | payer MEDICARE, OTHER ==
[~2019-09-06] VITALS: Ht 172.7 cm; Wt 86.5 kg
[~2019-09-06 12:13] MED LIST changes: -FAMO40TA3 PO
[2019-09-06] MEDS ORDERED: ACETAMINOPHEN TAB 650MG DOSE (2X325MG) PO PRN (14:00)
[2019-09-06] MEDS ORDERED: HEPARIN SOD (PORCINE) 5000UNITS/ML VIAL (J1644 PER 1000UNITS) SC SCH (14:00)
[2019-09-06] MEDS ORDERED: CEFEPIME HCL 2 GM in D5W 50 ML IV SCH (14:00)
[2019-09-06] MEDS ORDERED: IPRATROPIUM 0.5MG/ALBUTEROL 2.5MG INH SOL UD 3ML (DUONEB)(J7620) INH PRN ×2 (14:00→15:15)
[2019-09-06] MEDS ORDERED: ALBUTEROL SULFATE 2.5 MG/0.5 ML INH NEB SOLN INH PRN (14:00)
[2019-09-06] MEDS ORDERED: MOM 30ML SUSPENSION UDC PO PRN (14:00)
[2019-09-06] MEDS ORDERED: PIPERACILLIN/TAZOBACTAM SOD 4.5 GM in D5W MINI-BAG PLUS 100 ML IV SCH (14:00)
[2019-09-06 14:09] VITALS: BP 125/80
[2019-09-06 14:44] LABS: HEMATOCRIT 29.7 % (42.0-52.0); HEMOGLOBIN 8.8 g/dl (13.5-17.5); MEAN CORPUSCULAR HEMOGLOBIN 29.9 pg (27.0-33.0); MEAN CORPUSCULAR HGB CONC 29.6 g/dl (32.0-36.5); PLATELET COUNT, AUTOMATED 219 10^3/uL (150-450); RED BLOOD COUNT 2.94 10^6/uL (4.30-6.10); WHITE BLOOD COUNT 12.8 10^3/uL (4.0-10.0)
[2019-09-06] MEDS ORDERED: MEROPENEM INJ 2 GM in NS 100 ML IV SCH (15:00)
[2019-09-06 15:04] LABS: BLOOD UREA NITROGEN 24 MG/DL (7-18); CALCIUM LEVEL 8.8 MG/DL (8.8-10.2); CARBON DIOXIDE LEVEL 37 MEQ/L (21-32); CHLORIDE LEVEL 96 MEQ/L (98-107); CREATININE FOR GFR 1.12 MG/DL (0.70-1.30); GLOMERULAR FILTRATION RATE > 60.0 (>42); GLUCOSE, FASTING 103 MG/DL (70-100); POTASSIUM SERUM 3.8 MEQ/L (3.5-5.1); SODIUM LEVEL 138 MEQ/L (136-145)
--- NOTE | 2019-09-06 15:11 | HPEPDOC ---
General Date of Admission Sep 06, 2019 at 14:00 Date of Service: Sep 06, 2019 Chief Complaint The patient is a 79-year-old male admitted with a reason for visit of Pneumonia. Source: Patient Exam Limitations: No limitations Timing/Duration: Day(s) Severity: Moderate Associated Symptoms: Cough, Shortness of breath History of Present Illness Patient 79 years old male with past medical history of chronic pulmonary fibrosis, chronic hypoxic respiratory failure on 5 liters on oxygen, follows with Dr. Parada as outpatient and had been complaining of shortness of breath, cough productive of copious amounts of bloody mucous who was directly admitted from pulmonology office. Patient stated that for past few weeks he has been having increased shortness of breath with increased cough and weakness. Sputum culture was done on 09/04/19 and showed Klebsiella pneumonia ESBL sensitive to meropenem. Patient was admitted for IV antibiotic therapy. Patient denied fever, chills, nausea, vomiting, diarrhea or dysuria Home Medications Scheduled Clopidogrel Bisulfate (Plavix) 75 Mg Tab, 75 MG PO DAILY, (Reported) Ferrous Sulfate (Ferrous Sulfate) 325 Mg Tablet, 325 MG PO DAILY, (Reported) Furosemide (Furosemide) 20 Mg Tablet, 20 MG PO DAILY, (Reported) Isosorbide Mononitrate (Isosorbide Mononitrate ER) 30 Mg Tab.er.24h, 30 MG PO QHS, (Reported) Metoprolol Tartrate (Metoprolol Tartrate) 25 Mg Tab, 25 MG PO BID, (Reported) Mometasone Furoate Monohydrate (Nasonex) 17 Gm [place].pump, 50 MCG NARES DAILY, (Reported) (2) sprays in each nostril daily Morphine Sulfate (Morphine Sulfate) 100 Mg/5 Ml Solution, 0.25 ML SL PRN, (Reported) Prednisone (Prednisone) 10 Mg Tab, 10 MG PO DAILY, (Reported) RESUME AFTER TAPER Ranitidine HCl (Ranitidine HCl) 300 Mg Tablet, 1 TAB PO QHS, (Reported) Rivaroxaban (Xarelto) 20 Mg Tab, 20 MG PO QPM, (Reported) Sulfamethoxazole/Trimethoprim (Sulfamethoxazole-Tmp Ds Tablet) 1 Each Tablet, 1 TAB PO 3XW, (Reported) MON/WED/FRI Tiotropium [place] (Spiriva) 18 Mcg Cap, 18 MCG INH DAILY, (Reported) Scheduled PRN Albuterol Sulfate (Ventolin Hfa) 18 Gm Hfa.aer.ad, 2 PUFF INH Q4H PRN for SOB/WHEEZING, (Reported) Alprazolam (Xanax) 0.5 Mg Tab, 0.5 MG PO BID PRN for ANXIETY, (Reported) Hydrocodone/Acetaminophen (Hydrocodone-Acetamin 5-325 mg) 1 Tab Tab, 2 TAB PO Q6H PRN for PAIN, (Reported) Nitroglycerin (Nitroglycerin) 0.4 Mg Sub, 0.4 MG SL Q5MP PRN for CHEST PAIN, (Reported) Ondansetron (Ondansetron Odt) 4 Mg Tab, 4 MG PO Q8H PRN for NAUSEA OR VOMITING, (Reported) Miscellaneous Medications Cannabidiol (Cbd Oil) Btl, (Reported) Allergies Coded Allergies: amoxicillin (Verified Allergy, Intermediate, swelling, 06/13/19) clavulanic acid (Verified Allergy, Intermediate, swelling, 06/13/19) pantoprazole (Verified Allergy, Intermediate, hives, 06/13/19) Quinolones (Verified Adverse Reaction, Intermediate, tendon pain, 09/06/19) atorvastatin (Verified Adverse Reaction, Intermediate, cough and muscle ache, 09/06/19) ezetimibe (Verified Adverse Reaction, Intermediate, muscle ache, 09/06/19) cefditoren (Verified Adverse Reaction, Mild, BURNED NOSE, 09/06/19) quinapril (Verified Adverse Reaction, Mild, cough, 09/06/19) Past Medical History Medical History 1. Chronic pulmonary fibrosis. 2. Chronic hypoxic respiratory failure on 5 liters of oxygen. 3. Chronic obstructive pulmonary disease (COPD), steroid dependent, 10 mg daily usually. 4. Chronic pulmonary embolism on chronic Xarelto. 5. History of coronary artery disease (CAD), inferior wall myocardial infarction (CA) and stents, followed by Dr. Mitchell, on chronic Plavix. 6. Hypertension. 7. Dyslipidemia. 8. History of a tendon abscess. 9. Type 2 diabetes. 10. Pneumothorax due to a lung biopsy. 11. Paroxysmal atrial fibrillation. 12. Chronic thrombocytopenia. 13. History of obstructive sleep apnea. 14. Right face squamous cell cancer (CA) status post biopsy by his mail carrier and clerk in [place] a week ago. Surgical History 1. Tendon repair left heel due to chronic Achilles tendon abscess with methicillin-resistant Staphylococcus aureus (MRSA). 2. Lung biopsy followed by pneumothorax. 3. Tonsillectomy. 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 A-FIB/CHADSVASC A-FIB History Current/History of A-Fib/PAF?: Yes Current PO Anticoag Therapy: Yes Review of Systems Constitutional: Reports: Weakness, Fatigue; Denies: Chills, Fever Eyes: Denies: Pain ENT: Denies: Head Aches, Ear Pain Skin: Reports: Breakdown; Denies: Rash, Lesions Pulmonary: Reports: Dyspnea, Cough, Pleuritic Chest Pain, Other Symptoms (hemoptysis) Cardiovascular: Denies: Palpitations, Orthopnea, Paroxysmal Noc. Dyspnea Gastrointestinal: Denies: Nausea, Vomiting Genitourinary: Denies: Dysuria, Frequency Hematologic: Reports: Bruising, Bleeding Excessively Endocrine: Denies: Polydipsia, Polyphagia Musculoskeletal: Denies: Neck Pain Neurological: Denies: Weakness, Numbness Psych: Reports: Mood Normal Physical Examination General Exam: Positive: Alert, Cooperative Eye Exam: Positive: PERRLA, Conjunctiva & lids normal ENT Exam: Positive: Atraumatic, Mucous membr. moist/pink Neck Exam: Positive: Supple; Negative: JVD Chest Exam: Positive: Rhonchi, Diminished Heart Exam: Positive: Irregular Rhythm Telemetry: Positive: Atrial fibrillation Abdomen Exam: Positive: Normal bowel sounds Extremity Exam: Positive: Clubbing; Negative: Cyanosis Skin Exam: Positive: Nl turgor and temperature Neuro Exam: Positive: Strength at 5/5 X4 ext, Cranial Nerves 3-12 NL Psych Exam: Positive: Mental status NL Vital Signs Vital Signs Date Time Temp Pulse Resp B/P (MAP) Pulse Ox O2 Delivery O2 Flow Rate FiO2 09/06/19 14:09 98.3 77 20 125/80 (95) 100 Nasal Cannula 5.0 Laboratory Data Labs 24H Laboratory Tests 2 09/06/19 14:29: Nucleated Red Blood Cells % (auto) 0.0 09/06/19 14:32: 09/06/19 14:43: 09/06/19 14:44: CBC/BMP Laboratory Tests 09/06/19 14:29 Microbiology Microbiology 09/06/19 Gram Stain, Received Pending 09/06/19 Sputum Culture, Received Pending 09/06/19 Blood Culture, Received Pending Assessment/Plan Patient 79 years old male with past medical history of chronic pulmonary fibrosis, chronic hypoxic respiratory failure on 5 liters on oxygen, follows with Dr. Parada as outpatient and had been complaining of shortness of breath, cough productive of copious amounts of bloody mucous who was directly admitted from pulmonology office. Patient stated that for past few weeks he has been having increased shortness of breath with increased cough and weakness. Sputum culture was done on 09/04/19 and showed Klebsiella pneumonia ESBL sensitive to meropenem. Patient was admitted for IV antibiotic therapy. Patient denied fever, chills, nausea, vomiting, diarrhea or dysuria Problems (1) Pneumonia Status: Acute Problem Text: Patient was admitted from mail list librarian office, he was found to have Klebsiella pneumonia ESBL in sputum We'll proceed with CT scan of the chest Meropenem IV Steroids, inhalers (2) Atrial fibrillation Status: Chronic Problem Text: Heart rate is under control Continue oral targeted anticoagulation therapy therapy (3) Pulmonary fibrosis Status: Acute Problem Text: Follow-up with mail list librarian in the outpatient settings (4) Pulmonary embolism Status: Chronic Problem Text: Continue targeted oral anticoagulation therapy Plan / VTE VTE Prophylaxis Ordered?: Yes VIVIANA MCCARTHY DO Sep 06, 2019 15:11
[2019-09-06] MEDS ORDERED: GLUCOSE 4GM CHEW TABLET PO PRN (15:15)
[2019-09-06] MEDS ORDERED: GLUCAGON INJ 1MG VIAL SC PRN (15:15)
[2019-09-06] MEDS ORDERED: DEXTROSE 50% 50 ML SYRINGE IV PRN (15:15)
[2019-09-06] MEDS ORDERED: RANI15TA PO (15:42)
[2019-09-06] MEDS ORDERED: ISOVUE-370 76% 100ML VIAL As Ordered ONE (15:48)
[2019-09-06] MEDS ORDERED: TORS20TA2 PO (15:50)
[2019-09-06] MEDS ORDERED: FAMO40TA3 PO (15:51)
[2019-09-06] MEDS ORDERED: ALBUTEROL 90 MCG/ACT 8GM HFA INHALER INH PRN (16:00)
[2019-09-06] MEDS ORDERED: MORPHINE 10MG/0.5ML ORAL CONCENTRATE SOLUTION U/D SL PRN (16:00)
[2019-09-06] MEDS ORDERED: NITROGLYCERIN 0.4 MG SUBL TABLET SL PRN (16:00)
[2019-09-06] MEDS: predniSONE 10 MG TAB PO SCH (17:19)
[2019-09-06] MEDS: TORSEMIDE 20 MG TAB PO SCH (17:19)
[2019-09-06] MEDS: HumaLOG INSULIN (NovoLOG) PER UNIT SC SCH ×2 (17:19→20:42)
[2019-09-06] MEDS: MEROPENEM INJ 1 GM in IV 1 EA IV SCH (17:20)
[2019-09-06] MEDS ORDERED: RIVAROXABAN 20 MG TAB (XARELTO) PO SCH (18:00)
[2019-09-06] MEDS: NORCO, ANEXSIA 5/325MG TABLET (HYDROcodone/ACETAMINOPHEN) PO PRN (18:12)
[2019-09-06] MEDS: RIVAROXABAN 15 MG TAB (XARELTO) PO SCH (18:57)
[2019-09-06] MEDS: FAMOTIDINE 20 MG TAB PO SCH (20:51)
[2019-09-06] MEDS: ISOSORBIDE MON. (IMDUR) 30 MG XR TAB PO SCH (20:53)
[2019-09-06] MEDS: METOPROLOL TART 12.5 MG PER 1/2 TAB PO SCH (20:53)
[2019-09-06] MEDS ORDERED: METOPROLOL TART 25 MG TABLET PO SCH (21:00)
[2019-09-06 22:00] VITALS: BP 116/76
--- NOTE | 2019-09-06 23:24 | REP ---
REASON FOR EXAM: Followup. COMPARISON: Multiple, the latest 01/24/2019, which showed chronic pulmonary thromboembolic disease in the left lower lobe along with advanced COPD. CONTRAST: 100 mL [id number]. No mediastinal or hilar adenopathy has developed. There is four-chamber cardiac enlargement. There are no pleural or pericardial effusions. There is no change in the imaged upper abdomen or imaged osseous structures. Evaluation of the lung baca again shows chronic changes with areas of fibrosis and honeycomb lung. These areas appear stable. There are persistent air bronchograms, particularly in the lower lobes, status quo, and seen in conjunction with varicoid-type bronchiectatic change, all stable. There is no evidence of a definite new abnormal parenchymal opacity. IMPRESSION: Marked chronic lung baca changes, as described above. I cannot rule out the possibility of acute disease superimposed upon marked chronic changes as described above. Electronically Signed by David Saldaña DO 09/07/2019 08:07 A
[2019-09-07] MEDS: MEROPENEM INJ 1 GM in IV 1 EA IV SCH ×2 (00:31→09:18)
[2019-09-07 06:00] VITALS: BP 108/71
[2019-09-07 06:01] LABS: HEMATOCRIT 27.1 % (42.0-52.0); HEMOGLOBIN 8.1 g/dl (13.5-17.5); MEAN CORPUSCULAR HEMOGLOBIN 30.5 pg (27.0-33.0); MEAN CORPUSCULAR HGB CONC 29.9 g/dl (32.0-36.5); MEAN CORPUSCULAR VOLUME 101.9 fl (80.0-96.0); PLATELET COUNT, AUTOMATED 202 10^3/uL (150-450); RED BLOOD COUNT 2.66 10^6/uL (4.30-6.10); WHITE BLOOD COUNT 8.8 10^3/uL (4.0-10.0)
[2019-09-07 06:26] LABS: BLOOD UREA NITROGEN 24 MG/DL (7-18); CALCIUM LEVEL 8.5 MG/DL (8.8-10.2); CARBON DIOXIDE LEVEL 36 MEQ/L (21-32); CHLORIDE LEVEL 98 MEQ/L (98-107); CREATININE FOR GFR 1.06 MG/DL (0.70-1.30); GLOMERULAR FILTRATION RATE > 60.0 (>42); GLUCOSE, FASTING 169 MG/DL (70-100); MAGNESIUM LEVEL 2.1 MG/DL (1.8-2.4); SODIUM LEVEL 138 MEQ/L (136-145)
[2019-09-07] MEDS: NORCO, ANEXSIA 5/325MG TABLET (HYDROcodone/ACETAMINOPHEN) PO PRN ×3 (07:12→20:59)
[2019-09-07] MEDS ORDERED: FLUTICASONE PROP 0.05% NASAL SPRAY 16 GM (FLONASE) NARES SCH (09:00)
[2019-09-07] MEDS: METOPROLOL TART 25 MG TABLET PO SCH ×2 (09:00→09:21)
[2019-09-07] MEDS ORDERED: XARE15TA PO (09:08)
[2019-09-07] MEDS: HumaLOG INSULIN (NovoLOG) PER UNIT SC SCH ×4 (09:17→20:49)
[2019-09-07] MEDS: predniSONE 10 MG TAB PO SCH (09:17)
[2019-09-07] MEDS: CLOPIDOGREL 75 MG TAB PO SCH (09:17)
[2019-09-07] MEDS: TORSEMIDE 20 MG TAB PO SCH ×2 (09:17→17:26)
[2019-09-07] MEDS: FERROUS SULFATE 325MG TAB PO SCH (09:17)
[2019-09-07 14:00] VITALS: BP 103/68
[2019-09-07] MEDS: DOCUSATE SODIUM 100 MG CAP PO SCH ×2 (14:28→20:58)
[2019-09-07] MEDS: SODIUM CHLORIDE 0.9% NASAL GEL 15GM (AYR) SCH ×2 (14:28→21:00)
[2019-09-07] MEDS: ALPRAZolam 0.5 MG TAB PO PRN (14:31)
--- NOTE | 2019-09-07 15:01 | IPNPDOC ---
Text Note Date of Service The patient was seen on 09/07/19. NOTE Subjective: Patient is a 79-year-old male with a PMHx of Chronic pulmonary fibrosis / COPD (on 5L O2 at home, Chronic steroids), Chronic hypoxic respirato ry failure, Hx of MANUEL, CAD (Hx of [place]) s/p Stent, HTN, Paroxysmal A. fib, DLP, DM2, Hx of Pneumothorax, Chronic thrombocytopenia, Hx of Squamous cell face CA, who presented as a direct admission and the pediatric assistant office bases found to have a sputum culture on 09/03, that was consistent with ESBL Klebsiella pneumonia. Patient was admitted to hospitalist service for further evaluation and treatment. Patient was seen and examined at the bedside. Patient reports that his breathing has had some improvement still experiencing shortness of breath significantly has a mild cough. Denies any chest pain or palpitations. Denies nausea, vomiting, abdominal pain, diarrhea, urinary discomfort or leg swelling. Objective: Vitals (See below) General: Lying in bed, appears comfortable, AAOx3 HEENT: NC, AT CVS: +S1S2 Lungs: Fair air entry b/l, no appreciable wheezing / rhonchi / crackles Abdomen: Soft, ND, NT Extremities: No evidence of edema, - Calf tenderness Assessment and plan: ESBL Klebsiella pneumonia - Currently, patient reports some mildly productive cough - Remains hemodynamically stable and afebrile - Leukocytosis has improved - Repeat sputum cultures pending - Sputum cultures 09/03: ESBL Klebsiella pneumonia - CT chest 09/05: Marked chronic lung baca changes, as described above. I cannot rule out the possibility of acute disease superimposed upon marked chronic changes as described above. - c/w Meropenem - Consulted Infectious disease; will likely require PICC / Mid line and continued IV antibiotics as an outpatient Mild lactic acidosis - likely 2/2 work of breathing Chronic pulmonary fibrosis / COPD (on 5L O2 at home, Chronic steroids) - c/w Prednisone - c/w inhaled therapy as ordered Chronic hypoxic respiratory failure - c/w Supplemental oxygen as ordered Hx of MANUEL CAD (Hx of [place]) s/p Stent - c/w Plavix, Metoprolol HTN - c/w Torsemide, Isosorbide mononitrate, Metoprolol Paroxysmal A. fibrillation DLP - Currently not on medications DM2 - c/w ISS Anxiety - c/w Alprazolam PRN Hx of Pneumothorax Chronic thrombocytopenia - Counts within normal limits currently Hx of Squamous cell face CA GI prophylaxis - c/w Famotidine DVT prophylaxis - c/w TEDs/Sequentials - c/w full anticoagulation with Xarelto VS,Fishbone, I+O VS, Fishbone, I+O Laboratory Tests 09/07/19 05:24 Vital Signs Date Time Temp Pulse Resp B/P (MAP) Pulse Ox O2 Delivery O2 Flow Rate FiO2 09/07/19 14:27 20 Nasal Cannula 5.0 09/07/19 09:21 79 109/71 09/07/19 06:00 97.7 99 I&O- Last 24 Hours up to 6 AM 09/07/19 06:00 Intake Total 50 ml Output Total 600 ml Balance -550 ml AMENA PATEL MD Sep 07, 2019 15:01
[2019-09-07] MEDS: ERTAPENEM SODIUM 1 GM in NS MINI-BAG PLUS 50 ML IV SCH (17:26)
[2019-09-07] MEDS: RIVAROXABAN 15 MG TAB (XARELTO) PO SCH (17:26)
[2019-09-07] MEDS: FAMOTIDINE 20 MG TAB PO SCH (20:57)
[2019-09-07] MEDS: ISOSORBIDE MON. (IMDUR) 30 MG XR TAB PO SCH (20:58)
[2019-09-07] MEDS: METOPROLOL TART 12.5 MG PER 1/2 TAB PO SCH (20:58)
[2019-09-07 22:00] VITALS: BP 126/77
[2019-09-07] MEDS: ONDANSETRON 4 MG ORAL DISINTEGRATING TAB PO PRN (22:52)
--- NOTE | 2019-09-08 05:43 | CR ---
DATE OF CONSULTATION: 09/07/2019 INFECTIOUS DISEASE CONSULTATION: Asked to consult by hospitalist for evaluation of extended-spectrum beta-lactamase (ESBL) Klebsiella pneumoniae. HISTORY OF PRESENT ILLNESS: Mr. Padron is a pleasant 79-year-old gentleman with a history of chronic pulmonary fibrosis with hypoxic respiratory failure on 5 liters of oxygen. Patient follows up with Dr. Parada and was complaining of increasing shortness of breath, cough productive of yellow phlegm with bloody mucus for the past 3 weeks. The patient states he has had a lot of bloody noses because of his blood thinner, Plavix and Xarelto, which was decreased in dose because of his significant nosebleeds. Patient was having bloody phlegm and old blood in his mucus. He denied any fever, chills, nausea, vomiting, diarrhea, or dysuria. The patient was admitted for intravenous (IV) antibiotics as he cannot tolerate levofloxacin because of Achilles tendonitis and tendon rupture. PAST MEDICAL HISTORY: Is significant for chronic pulmonary fibrosis with respiratory failure, pulmonary embolism on Xarelto, coronary artery disease status post stenting. He has [address] Mitchell. Hypertension, dyslipidemia, history of Achilles tendon rupture with methicillin-resistant Staphylococcus aureus (MRSA) infection, type 2 diabetes, pneumothorax, paroxysmal atrial fibrillation, thrombocytopenia, obstructive sleep apnea, squamous cell carcinoma of the right face. PAST SURGICAL HISTORY: Left heel Achilles tendon repair, lung biopsy, tonsillectomy. FAMILY HISTORY: Not really revealing. SOCIAL HISTORY: He quit smoking. He denies alcohol use or drug use. 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 He has a son, who is his health care proxy. He lives with his at home, who has done home IV antibiotics. REVIEW OF SYSTEMS: He has no fever or chills. No headache. No chest pain. He has shortness of breath, which is at about baseline, on 5 liters oxygen. No nausea, vomiting, diarrhea, dysuria, hematuria, flank pain. ON PHYSICAL EXAM: Cushingoid gentleman in no acute distress. Temperature is 97.7, pulse 89, respirations 18, blood pressure 108/71, oxygen saturation 99% on 5 liters nasal cannula. Heart: Normal S1, S2. No murmurs. Lungs: Diffuse inspiratory crackles with diminished air entry bilaterally. No wheezing. Abdomen: Morbidly obese. Soft, nontender. Extremities: +1 pitting edema bilaterally with venous stasis changes and tenderness along the anterior shins, especially on the right side. Head and ear, nose, and throat (ENT): Oropharynx is clear with no jugular venous distention (JVD). No bruits. Oropharynx no lesions. LABS: White count is 8.8, hemoglobin 8.1, hematocrit 27.1, platelets 202. White count yesterday was 12.8. Sodium 138, potassium 4, chloride 98, bicarbonate 36, BUN 24, creatinine 1.06, glucose 169, lactic acid 2.5, calcium 8.5, magnesium 2.1, procalcitonin 0.17, calcium 8.8. Blood cultures no growth after 24 hours. Sputum culture from outpatient had Klebsiella ESBL sensitive to levofloxacin and carbapenems. Chest CT was difficult to read due to severe honeycombing and pulmonary fibrosis. Cannot rule out possibility of an acute overlying process. IMPRESSION: This is a 79-year-old gentleman with about 3 weeks of worsening cough with hemoptysis, which I believe is related to his nosebleeds, with worsening shortness of breath. The patient is admitted for IV antibiotic. He has improved. His white count has decreased, and patient clinically feels better. He wants to go home. He has received so far meropenem for the past 24 hours. The patient could be switched to ertapenem 1 gram daily for a total of 7-10 days. MEDICATIONS: - meropenem 1 gram IV every 8 hours - metoprolol 12.5 mg by mouth nightly - Xarelto 15 mg by mouth daily - Flonase one spray daily - metoprolol 25 mg by mouth daily - famotidine 40 mg by mouth nightly - Isordil 30 mg by mouth nightly - Colace 100 (cut off) - prednisone 10 mg by mouth daily PLAN: Midline insertion today or tomorrow morning. Consult infusion [place] for IV ertapenem 1 gram daily. The patient will receive 7 days of outpatient IV antibiotic. Saline nose spray for nosebleeds to decrease recurrence of hemoptysis. Hold Flonase, which will increase his risk of nosebleeds. Case has been discussed with Dr. Parada, who agrees with the plan.
[2019-09-08 06:00] VITALS: BP 123/79
[2019-09-08] MEDS: ONDANSETRON 4 MG ORAL DISINTEGRATING TAB PO PRN (06:17)
[2019-09-08] MEDS: NORCO, ANEXSIA 5/325MG TABLET (HYDROcodone/ACETAMINOPHEN) PO PRN ×2 (06:19→13:11)
[2019-09-08 08:38] LABS: BASO % 0.3 % (0.0-1.0); EOS # 0.2 10^3/uL (0.0-0.5); EOS % 1.6 % (0.0-3.0); HEMATOCRIT 32.6 % (42.0-52.0); LYMPH # 2.9 10^3/uL (1.5-5.0); LYMPH % 27.6 % (24.0-44.0); MEAN CORPUSCULAR HEMOGLOBIN 31.3 pg (27.0-33.0); MEAN CORPUSCULAR HGB CONC 30.7 g/dl (32.0-36.5); MEAN CORPUSCULAR VOLUME 101.9 fl (80.0-96.0); MONO % 9.5 % (0.0-5.0); NEUTROPHILS # 6.4 10^3/uL (1.5-8.5); NEUTROPHILS % 60.4 % (36.0-66.0); PLATELET COUNT, AUTOMATED 249 10^3/uL (150-450); WHITE BLOOD COUNT 10.6 10^3/uL (4.0-10.0)
[2019-09-08 08:42] LABS: BLOOD UREA NITROGEN 24 MG/DL (7-18); CALCIUM LEVEL 8.9 MG/DL (8.8-10.2); CARBON DIOXIDE LEVEL 38 MEQ/L (21-32); CHLORIDE LEVEL 95 MEQ/L (98-107); CREATININE FOR GFR 1.15 MG/DL (0.70-1.30); GLOMERULAR FILTRATION RATE > 60.0 (>42); GLUCOSE, FASTING 114 MG/DL (70-100); MAGNESIUM LEVEL 2.1 MG/DL (1.8-2.4); POTASSIUM SERUM 3.7 MEQ/L (3.5-5.1); SODIUM LEVEL 139 MEQ/L (136-145)
[2019-09-08 09:25] VITALS: BP 123/79
[2019-09-08] MEDS: HumaLOG INSULIN (NovoLOG) PER UNIT SC SCH ×2 (09:25→13:08)
[2019-09-08] MEDS: METOPROLOL TART 25 MG TABLET PO SCH (09:25)
[2019-09-08] MEDS: FERROUS SULFATE 325MG TAB PO SCH (09:25)
[2019-09-08] MEDS: CLOPIDOGREL 75 MG TAB PO SCH (09:25)
[2019-09-08] MEDS: TORSEMIDE 20 MG TAB PO SCH ×2 (09:25→16:10)
[2019-09-08] MEDS: predniSONE 10 MG TAB PO SCH (09:25)
[2019-09-08] MEDS: DOCUSATE SODIUM 100 MG CAP PO SCH (09:25)
[2019-09-08] MEDS: SODIUM CHLORIDE 0.9% NASAL GEL 15GM (AYR) SCH (09:26)
[2019-09-08] MEDS: ALPRAZolam 0.5 MG TAB PO PRN (10:08)
--- NOTE | 2019-09-08 12:17 | DS.PDOC ---
Discharge Summary General Date of Admission Sep 06, 2019 at 14:00 Date of Discharge 09/08/2019 Discharge Summary PROCEDURES PERFORMED DURING STAY: [None]. ADMITTING DIAGNOSES / DISCHARGE DIAGNOSES: ESBL Klebsiella pneumonia Mild lactic acidosis Chronic pulmonary fibrosis / COPD (on 5L O2 at home, Chronic steroids) Chronic hypoxic respiratory failure Hx of MANUEL CAD (Hx of [place]) s/p Stent HTN Paroxysmal A. fibrillation DLP DM2 Anxiety Hx of Pneumothorax Chronic thrombocytopenia Hx of Squamous cell face CA GI prophylaxis DVT prophylaxis COMPLICATIONS/CHIEF COMPLAINT: Shortness of breath HISTORY OF PRESENT ILLNESS: Patient is a 79-year-old male with a PMHx of Chronic pulmonary fibrosis / COPD (on 5L O2 at home, Chronic steroids), Chronic hypoxic respiratory failure, Hx of MANUEL, CAD (Hx of [place]) s/p Stent, HTN, Paroxysmal A. fib, DLP, DM2, Hx of Pneumothorax, Chronic thrombocytopenia, Hx of Squamous cell face CA, who presented as a direct admission and the multi slide machine tender office bases found to have a sputum culture on 09/03, that was consistent with ESBL Klebsiella pneumonia. Patient was admitted to hospitalist service for further evaluation and treatment. HOSPITAL COURSE: ESBL Klebsiella pneumonia - Reports improvement in breathing - Remains hemodynamically stable; no reported fever episodes - Leukocytosis remains stable - Repeat sputum cultures pending - Sputum cultures 09/03: ESBL Klebsiella pneumonia - CT chest 09/05: Marked chronic lung baca changes, as described above. I canno t rule out the possibility of acute disease superimposed upon marked chronic changes as described above. - c/w Ertapenem (Day #2); s/p Meropenem; will c/w antibiotics as an outpatient with Midline placed on 09/07; for completion of 7 days total - Consulted Infectious disease; appreciate their input Mild lactic acidosis - likely 2/2 work of breathing Chronic pulmonary fibrosis / COPD (on 5L O2 at home, Chronic steroids) - c/w Prednisone - c/w inhaled therapy as ordered Chronic hypoxic respiratory failure - c/w Supplemental oxygen as ordered Hx of MANUEL CAD (Hx of [place]) s/p Stent - c/w Plavix, Metoprolol HTN - c/w Torsemide, Isosorbide mononitrate, Metoprolol Paroxysmal A. fibrillation - Rate controlled; c/w Metoprolol - c/w Full anticoagulation with Xarelto DLP - Currently not on medications DM2 - c/w ISS Anxiety - c/w Alprazolam PRN Hx of Pneumothorax Chronic thrombocytopenia - Counts within normal limits currently Hx of Squamous cell face CA GI prophylaxis - c/w Famotidine DVT prophylaxis - c/w TEDs/Sequentials - c/w full anticoagulation with Xarelto DISCHARGE MEDICATIONS: Please see below. ALLERGIES: Please see below. PHYSICAL EXAMINATION ON DISCHARGE: Vitals (See below) General: Lying in bed, no acute distress, comfortable, AAOx3 HEENT: NC, AT CVS: +S1S2 Lungs: Poor inspiratory effort bilaterally, no significant rhonchi / crackles, mild wheezing Abdomen: Soft, ND, NT Extremities: Trace edema bilaterally , - Calf tenderness LABORATORY DATA: Please see below. ACTIVITY: [As tolerated]. DISCHARGE PLAN: Home with services Follow up with PCP, Dr. Parada and Dr. Patel within 7 days Remain compliant with treatment plan and medications Return to the ER if you experience any problems DISPOSITION: Home with services DISCHARGE CONDITION: [Stable]. TIME SPENT ON DISCHARGE: 35 minutes. Vital Signs/I&Os Vital Signs Date Time Temp Pulse Resp B/P (MAP) Pulse Ox O2 Delivery O2 Flow Rate FiO2 09/08/19 09:25 77 123/79 09/08/19 06:52 18 09/08/19 06:00 98.2 99 Nasal Cannula 5.0 I&O- Last 24 Hours up to 6 AM 09/08/19 06:00 Intake Total 860 ml Output Total 200 ml Balance 660 ml Laboratory Data Labs 24H Laboratory Tests 2 09/07/19 16:45: Bedside Glucose (Misc Panel) 194H 09/07/19 20:40: Bedside Glucose (Misc Panel) 159H 09/08/19 07:58: Immature Granulocyte % (Auto) 0.6, Neutrophils (%) (Auto) 60.4, Lymphocytes (%) (Auto) 27.6, Monocytes (%) (Auto) 9.5H, Eosinophils (%) (Auto) 1.6, Basophils (%) (Auto) 0.3, Neutrophils # (Auto) 6.4, Lymphocytes # (Auto) 2.9, Monocytes # (Auto) 1.0H, Eosinophils # (Auto) 0.2, Basophils # (Auto) 0.0, Nucleated Red Blood Cells % (auto) 0.0, Anion Gap 6L, Glomerular Filtration Rate > 60.0, Calcium Level 8.9, Magnesium Level 2.1 09/08/19 11:29: Bedside Glucose (Misc Panel) 142H CBC/BMP Laboratory Tests 09/08/19 07:58 FSBS Laboratory Tests Test 09/07/19 16:45 09/07/19 20:40 09/08/19 11:29 Range/Units Bedside Glucose (Misc Panel) 194 159 142 83-110 MG/DL Microbiology Microbiology 09/06/19 Gram Stain - Final, Resulted 09/06/19 Sputum Culture, Resulted Pending 09/06/19 Blood Culture - Preliminary, Resulted No growth after 24 hours . All specim... Discharge Medications Scheduled Clopidogrel Bisulfate (Plavix) 75 Mg Tab, 75 MG PO DAILY, (Reported) Famotidine (Famotidine) 40 Mg Tablet, 40 MG PO QHS, (Reported) Ferrous Sulfate (Ferrous Sulfate) 325 Mg Tablet, 325 MG PO DAILY, (Reported) Isosorbide Mononitrate (Isosorbide Mononitrate ER) 30 Mg Tab.er.24h, 30 MG PO QHS, (Reported) Metoprolol Tartrate (Metoprolol Tartrate) 25 Mg Tab, 25 MG PO BID, (Reported) Mometasone Furoate Monohydrate (Nasonex) 17 [address] [place].pump, 50 MCG NARES DAILY, (Reported) (2) sprays in each nostril daily Morphine Sulfate (Morphine Sulfate) 100 Mg/5 Ml Solution, 0.25 ML SL PRN, (Reported) Prednisone (Prednisone) 10 Mg Tab, 10 MG PO DAILY, (Reported) Rivaroxaban (Xarelto) 15 Mg Tablet, 15 MG PO QPM, (Reported) Sulfamethoxazole/Trimethoprim (Sulfamethoxazole-Tmp Ds Tablet) 1 Each Tablet, 1 TAB PO 3XW, (Reported) MON/WED/FRI Tiotropium [place] (Spiriva) 18 Mcg Cap, 18 MCG INH DAILY, (Reported) Torsemide (Torsemide) 20 Mg Tablet, 20 MG PO BID, (Reported) Scheduled PRN Albuterol Sulfate (Ventolin Hfa) 18 Gm [place]fa.aer.ad, 2 PUFF INH Q4H PRN for SOB/WHEEZING, (Reported) Alprazolam (Xanax) 0.5 Mg Tab, 0.5 MG PO BID PRN for ANXIETY, (Reported) Hydrocodone/Acetaminophen (Hydrocodone-Acetamin 5-325 mg) 1 Tab Tab, 2 TAB PO Q4HP PRN for PAIN, (Reported) Nitroglycerin (Nitroglycerin) 0.4 Mg Sub, 0.4 MG SL Q5MP PRN for CHEST PAIN, (Reported) Ondansetron (Ondansetron Odt) 4 Mg Tab, 4 MG PO Q8H PRN for NAUSEA OR VOMITING, (Reported) Allergies Coded Allergies: amoxicillin (Verified Allergy, Intermediate, swelling, 06/13/19) clavulanic acid (Verified Allergy, Intermediate, swelling, 06/13/19) pantoprazole (Verified Allergy, Intermediate, hives, 06/13/19) Quinolones (Verified Adverse Reaction, Intermediate, tendon pain, 09/06/19) atorvastatin (Verified Adverse Reaction, Intermediate, cough and muscle ache, 09/06/19) ezetimibe (Verified Adverse Reaction, Intermediate, muscle ache, 09/06/19) cefditoren (Verified Adverse Reaction, Mild, BURNED NOSE, 09/06/19) quinapril (Verified Adverse Reaction, Mild, cough, 09/06/19) AMENA PATEL MD Sep 08, 2019 12:17
[2019-09-08] MEDS ORDERED: LIDOCAINE 1% MDV 20ML VIAL As Ordered ONE (14:08)
[2019-09-08 14:30] VITALS: BP 133/88
[2019-09-08] MEDS ORDERED: SODIUM CHLORIDE 0.9% INJ 10 ML SYR IV SCH ×2 (15:00→18:00)
[2019-09-08] MEDS ORDERED: SODIUM CHLORIDE 0.9% INJ 10 ML SYR IV PRN ×2 (15:00→15:30)
[2019-09-08] MEDS ORDERED: SODIUM CHLORIDE NASAL 0.65% SPRAY BTL (OCEAN) PRN (15:15)
[2019-09-08] MEDS: ERTAPENEM SODIUM 1 GM in NS MINI-BAG PLUS 50 ML IV SCH (16:09)
--- NOTE | 2019-09-09 19:13 | REP ---
MIDLINE CATHETER INSERTION WITH SITE KARENAPatricia The procedure was performed under the direct supervision of Dr. Eaton. The risks and benefits of the procedure were explained to the patient and informed consent was obtained. The right basilic vein was localized using ultrasound guidance. The skin was prepped and draped in a sterile fashion. 1% lidocaine was used as a local anesthetic. Using ultrasound guidance the basilic vein was cannulated and a 0.018 guidewire was inserted. The needle was removed and a 4.5 Vietnamese dilator and peel-away sheath was inserted over the guide wire. A 4.5 Vietnamese single-lumen catheter was left at a length of 16.5 cm. The dilator was removed and the catheter was inserted over the guide wire. The peel-away sheath was removed and the catheter was flushed with heparinized saline as per Hospital protocol. The catheter was affixed to the skin and a sterile dressing was applied. The patient tolerated the procedure well and there were no immediate complications. Electronically Signed by CARLOS Ritter 09/09/2019 04:46 P Electronically Signed by Gilmer Eaton MD 09/09/2019 07:04 P
== END 2019-09-08 18:16 | disposition home health service (06) | DRG 178 ==
LOC: EEVIPCON 14:00 → M MSPAV 14:00
PROVIDERS: ADMIT Internal Medicine; ATTEND Internal Medicine
PROC: 05HB33Z Insertion of Infusion Device into Right Basilic Vein, Percutaneous Approach (ICD-10-PCS; principal; 2019-09-08 14:00)
DX: J15.0 Pneumonia due to Klebsiella pneumoniae (principal); J96.11 Chronic respiratory failure with hypoxia; J44.0 Chronic obstructive pulmonary disease with (acute) lower respiratory infection; I27.82 Chronic pulmonary embolism; E87.2 Acidosis; J84.10 Pulmonary fibrosis, unspecified; I25.10 Atherosclerotic heart disease of native coronary artery without angina pectoris; I25.2 Old myocardial infarction; I10 Essential (primary) hypertension; Z66 Do not resuscitate; E78.5 Hyperlipidemia, unspecified; E11.9 Type 2 diabetes mellitus without complications; I48.0 Paroxysmal atrial fibrillation; D69.6 Thrombocytopenia, unspecified; G47.33 Obstructive sleep apnea (adult) (pediatric); C44.320 Squamous cell carcinoma of skin of unspecified parts of face; F41.9 Anxiety disorder, unspecified; R04.0 Epistaxis; Z99.81 Dependence on supplemental oxygen; Z79.02 Long term (current) use of antithrombotics/antiplatelets; Z79.52 Long term (current) use of systemic steroids; Z79.01 Long term (current) use of anticoagulants; Z95.5 Presence of coronary angioplasty implant and graft; Z87.891 Personal history of nicotine dependence; Z79.899 Other long term (current) drug therapy; Z88.0 Allergy status to penicillin; Z88.1 Allergy status to other antibiotic agents; Z88.8 Allergy status to other drugs, medicaments and biological substances

== ENCOUNTER → 2019-09-15 | Outpatient (CLI) | payer MEDICARE, OTHER ==
[~2019-09-15] MED LIST changes: +CICL0.7733 TOP; -CICL0.776 TOP; +FAMO40TA3 PO
--- NOTE | 2019-09-15 15:50 | REPPI ---
REASON FOR EXAM: History of pulmonary fibrosis. Latest prior for comparison is 01/18/2019 Increased interstitial opacities are noted status quo. There is a new right lower lobe opacity. There are no other significant changes from the prior exam. IMPRESSION: New right lower lobe opacity superimposed on chronic changes. I cannot rule out the possibility of either worsened fibrosis or acute disease such as pneumonia superimposed on chronic change. Electronically Signed by David Saldaña DO 09/15/2019 05:06 P
== END ==
LOC: M PLAIMG 12:54
PROVIDERS: ATTEND Internal Medicine Pulmonary Disease
DX: J84.112 Idiopathic pulmonary fibrosis (principal); J47.9 Bronchiectasis, uncomplicated; R91.8 Other nonspecific abnormal finding of lung field

== ENCOUNTER → 2019-09-17 | Outpatient (REF) | payer MEDICARE, OTHER ==
[2019-09-17 13:42] LABS: BASO % 0.1 % (0.0-1.0); EOS # 0.1 10^3/uL (0.0-0.5); EOS % 0.5 % (0.0-3.0); HEMATOCRIT 27.9 % (42.0-52.0); HEMOGLOBIN 8.4 g/dl (13.5-17.5); LYMPH # 1.4 10^3/uL (1.5-5.0); LYMPH % 14.6 % (24.0-44.0); MEAN CORPUSCULAR HEMOGLOBIN 30.5 pg (27.0-33.0); MEAN CORPUSCULAR HGB CONC 30.1 g/dl (32.0-36.5); MEAN CORPUSCULAR VOLUME 101.5 fl (80.0-96.0); MONO # 0.7 10^3/uL (0.0-0.8); MONO % 7.5 % (0.0-5.0); NEUTROPHILS # 7.1 10^3/uL (1.5-8.5); NEUTROPHILS % 76.9 % (36.0-66.0); PLATELET COUNT, AUTOMATED 195 10^3/uL (150-450); RED BLOOD COUNT 2.75 10^6/uL (4.30-6.10); WHITE BLOOD COUNT 9.3 10^3/uL (4.0-10.0)
[2019-09-17 14:09] LABS: ALBUMIN 2.9 GM/DL (3.2-5.2); ALT/SGPT 14 U/L (12-78); BILIRUBIN,TOTAL 0.4 MG/DL (0.2-1.0); BLOOD UREA NITROGEN 22 MG/DL (7-18); C REACTIVE PROTEIN QUANTITATIV 2.28 MG/DL (0.00-0.30); CALCIUM LEVEL 8.4 MG/DL (8.8-10.2); CARBON DIOXIDE LEVEL 35 MEQ/L (21-32); CHLORIDE LEVEL 99 MEQ/L (98-107); CREATININE FOR GFR 1.14 MG/DL (0.70-1.30); GLOMERULAR FILTRATION RATE > 60.0 (>42); GLUCOSE, FASTING 147 MG/DL (70-100); POTASSIUM SERUM 3.7 MEQ/L (3.5-5.1); SODIUM LEVEL 139 MEQ/L (136-145); TOTAL PROTEIN 6.9 GM/DL (6.4-8.2)
[2019-09-17 14:21] LABS: ERYTHROCYTE SEDIMENTATION RATE 91 mm/hr (0-20)
== END ==
LOC: M SHH 13:28
PROVIDERS: ATTEND Internal Medicine Infectious Disease
DX: J84.10 Pulmonary fibrosis, unspecified (principal)

== ENCOUNTER → 2019-09-20 | Outpatient (REF) | payer MEDICARE, OTHER ==
[2019-09-20 16:18] LABS: EOS % 0.1 % (0.0-3.0); HEMATOCRIT 31.2 % (42.0-52.0); HEMOGLOBIN 9.1 g/dl (13.5-17.5); LYMPH # 1.5 10^3/uL (1.5-5.0); LYMPH % 16.5 % (24.0-44.0); MEAN CORPUSCULAR HEMOGLOBIN 30.7 pg (27.0-33.0); MEAN CORPUSCULAR HGB CONC 29.2 g/dl (32.0-36.5); MEAN CORPUSCULAR VOLUME 105.4 fl (80.0-96.0); MONO # 0.7 10^3/uL (0.0-0.8); NEUTROPHILS % 75.9 % (36.0-66.0); PLATELET COUNT, AUTOMATED 203 10^3/uL (150-450); RED BLOOD COUNT 2.96 10^6/uL (4.30-6.10); WHITE BLOOD COUNT 9.3 10^3/uL (4.0-10.0)
[2019-09-20 16:31] LABS: PERCENT SATURATION 56.3 % (19.7-50.0)
== END ==
LOC: M SHH 15:13
PROVIDERS: ATTEND Internal Medicine Infectious Disease
DX: J84.10 Pulmonary fibrosis, unspecified (principal); D50.0 Iron deficiency anemia secondary to blood loss (chronic)

== ENCOUNTER 2019-10-05 11:26 | Emergency (ER) | payer MEDICARE, OTHER ==
[~2019-10-05] VITALS: Ht 172.7 cm; Wt 86.4 kg
[2019-10-05] MEDS ORDERED: ASPI81CH33 PO (11:35)
--- NOTE | 2019-10-05 12:44 | REP ---
Clinical: Right shoulder injury. Technique: Internal rotation, external rotation, and Y view of the right shoulder. 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 No definite acute fracture or dislocation is appreciated. Overlying soft tissue swelling noted. Impression: Soft-tissue swelling. Extensive arthritic changes. No definite acute fracture or dislocation. Electronically Signed by Patricio Moseley MD 10/05/2019 12:35 P
[2019-10-05 13:45] VITALS: BP 129/87
== END 2019-10-05 13:57 | disposition home or self-care (01) ==
LOC: M ED 11:26
DX: S43.401A Unspecified sprain of right shoulder joint, initial encounter (principal); X50.9XXA Other and unspecified overexertion or strenuous movements or postures, initial encounter; Y92.89 Other specified places as the place of occurrence of the external cause; M19.011 Primary osteoarthritis, right shoulder; E11.9 Type 2 diabetes mellitus without complications; I10 Essential (primary) hypertension; J44.9 Chronic obstructive pulmonary disease, unspecified; E78.5 Hyperlipidemia, unspecified; G62.9 Polyneuropathy, unspecified; G47.33 Obstructive sleep apnea (adult) (pediatric); I48.91 Unspecified atrial fibrillation; J84.10 Pulmonary fibrosis, unspecified; Z99.81 Dependence on supplemental oxygen; Z79.899 Other long term (current) drug therapy; Z79.82 Long term (current) use of aspirin; Z88.0 Allergy status to penicillin; Z88.1 Allergy status to other antibiotic agents; Z88.8 Allergy status to other drugs, medicaments and biological substances; Z87.891 Personal history of nicotine dependence

== ENCOUNTER → 2019-12-09 | Outpatient (REF) | payer MEDICARE, OTHER ==
[~2019-12-09] MED LIST changes: +ASPI81CH33 PO; -ASPI81TA85 PO; +ASPI81TA86 PO
[2019-12-09 14:00] LABS: PERCENT SATURATION 17.9 % (19.7-50.0)
== END ==
LOC: M LAB REF 08:31
PROVIDERS: ATTEND Internal Medicine
DX: D50.9 Iron deficiency anemia, unspecified (principal)

== ENCOUNTER → 2020-02-10 | Outpatient (REF) | payer MEDICARE, OTHER ==
[2020-02-10 17:17] LABS: PERCENT SATURATION 44.7 % (19.7-50.0)
== END ==
LOC: M LAB REF 16:08
PROVIDERS: ATTEND Internal Medicine
DX: D64.9 Anemia, unspecified (principal)

== ENCOUNTER → 2020-03-24 | Outpatient (CLI) | payer SELFPAY | LOC: M LABSMTC 12:01 | PROVIDERS: ATTEND Pediatrics | DX: Z20.828 Contact with and (suspected) exposure to other viral communicable diseases (principal) ==

== ENCOUNTER → 2020-04-17 | Outpatient (REF) | payer MEDICARE, OTHER ==
[2020-04-17 17:04] LABS: PERCENT SATURATION 18.4 % (19.7-50.0)
== END ==
LOC: M LAB REF 16:34
PROVIDERS: ATTEND Internal Medicine
DX: D64.9 Anemia, unspecified (principal)

== ENCOUNTER → 2020-06-16 | Outpatient (REF) | payer MEDICARE, OTHER ==
[~2020-06-16] MED LIST changes: +ISOS1TAB35 PO; -ISOS30TA4 PO
[2020-06-16 17:08] LABS: PERCENT SATURATION 35.7 % (19.7-50.0)
== END ==
LOC: M LAB REF 16:19
PROVIDERS: ATTEND Internal Medicine
DX: D50.9 Iron deficiency anemia, unspecified (principal)

== ENCOUNTER → 2020-06-28 | Outpatient (CLI) | payer MEDICARE, OTHER ==
[~2020-06-28] MED LIST changes: +MIRA3350 PO
== END ==
LOC: M LABSMTC 10:08
PROVIDERS: ATTEND Anesthesiology
DX: Z01.812 Encounter for preprocedural laboratory examination (principal)

== ENCOUNTER 2020-07-03 07:18 | Day surgery (SDC) | payer MEDICARE, OTHER ==
[~2020-07-03] VITALS: Ht 172.7 cm; Wt 75.7 kg
[~2020-07-03 07:18] MED LIST changes: +CEFUROXIME 1MG/0.1ML INTRACAMERAL INJ As Ordered ONE; +DUOVISC (0.50ML VISCOAT/0.55ML PROVISC) OPHTH KIT As Ordered ONE; +OFLOXACIN 0.3 % (OCUFLOX) OPTH SOL 5ML OS ONE; +PHENYLEPHRINE 2.5% OPHTH SOL 2ML OS ONE; +POVIDONE-IODINE 5% OPHTH PREP SOL 30ML As Ordered ONE; +PROPARACAINE 0.5% OPHTH SOL 15ML OS ONE; +TROPICAMIDE 1% OPHTH SOLN 2ML OS ONE
[2020-07-03] MEDS ORDERED: fentaNYL 100 MCG/2 ML INJECTION (J3010) As Ordered ONE (08:14)
[2020-07-03] MEDS ORDERED: MIDAZOLAM INJ 2MG/2ML VIAL (J2250 PER 1MG) As Ordered ONE (08:15)
[2020-07-03] MEDS ORDERED: METOPROLOL TART 25 MG TABLET PO ONE (08:45)
[2020-07-03 08:59] VITALS: BP 162/98
[2020-07-03] MEDS ORDERED: BSS IRR 500ML/OMIDRIA 4ML IRR BAG (OR ONLY) As Ordered ONE (10:51)
[2020-07-03 11:32] VITALS: BP 115/77
--- NOTE | 2020-07-04 11:14 | RO ---
OPERATIVE NOTE DATE OF OPERATION: 07/03/2020 PREOPERATIVE DIAGNOSIS: 1. Visually significant nuclear sclerotic cataract, left eye. POSTOPERATIVE DIAGNOSIS: 1. Visually significant nuclear sclerotic cataract, left eye. PROCEDURE: 1. Cataract extraction with use of phacoemulsification, and placement of intraocular lens, AU00T0, 19.0 D, left eye. SURGEON: Hawk Isaac DO ORCHID SUPERINTENDENT: ANESTHESIA: Local (Omidria) only COMPLICATIONS: None POSTOPERATIVE CONDITION: Stable INDICATIONS FOR SURGERY: 1. Blurred vision affecting patient's activities of daily living. DESCRIPTION OF PROCEDURE: The patient was seen in the preoperative area and properly identified. The correct operative eye was identified and marked. The patient received topical anesthetic, antibiotics, and topical dilating drops. The patient was then transferred to the operating room. The correct side was re-identified and a time out was performed. The eye was prepped and draped in a sterile fashion. The eyelids were isolated with Tegaderm tape and the lids were held open with an adjustable speculum. A 1.0 mm paracentesis incision was made. Omidria was then injected into the anterior chamber. Viscoelastic was then injected into the anterior chamber through the paracentesis. Using a 2.4 mm sharp-tipped keratome, the anterior chamber was entered via a temporal clear cornea incision. A continuous curvilinear capsulorrhexis was created with Utrata forceps. Hydrodissection was performed with BSS on a blunt cannula until the nucleus was able to rotate freely. The crystalline lens was phacoemulsified and aspirated. Irrigation/aspiration was used to remove the cortical material Cohesive viscoelastic was placed into the capsular bag to deepen it. The implant was placed into the capsular bag and allowed to unfold. Placement was confirmed by visualizing the anterior capsulorrhexis. Irrigation/aspiration was used to remove the viscoelastic. The clear corneal incision was hydrated with BSS on a blunt cannula. The lens was well positioned. Intracameral antibiotic was injected into the anterior chamber. The incisions were then tested for leaks and found to be negative. The eye was then palpated for appropriate pressure and adjusted accordingly with BSS. The eyelid speculum was then carefully removed. A shield was placed over the eye. The patient tolerated the procedure well and was discharge to the recovery unit in a stable condition. NIKITA
== END 2020-07-03 12:20 | disposition home or self-care (01) ==
LOC: M SDC 07:18
PROVIDERS: ATTEND Ophthalmology
DX: H25.12 Age-related nuclear cataract, left eye (principal); I48.91 Unspecified atrial fibrillation; I25.10 Atherosclerotic heart disease of native coronary artery without angina pectoris; I25.2 Old myocardial infarction; J44.9 Chronic obstructive pulmonary disease, unspecified; I73.9 Peripheral vascular disease, unspecified; G47.30 Sleep apnea, unspecified; D64.9 Anemia, unspecified; E11.9 Type 2 diabetes mellitus without complications; Z88.8 Allergy status to other drugs, medicaments and biological substances; Z88.1 Allergy status to other antibiotic agents; Z88.0 Allergy status to penicillin; Z79.01 Long term (current) use of anticoagulants; Z86.711 Personal history of pulmonary embolism; Z79.52 Long term (current) use of systemic steroids; Z79.82 Long term (current) use of aspirin
CPT/HCPCS: 66984; J1097; J2250; J3010; V2632

== ENCOUNTER → 2020-08-21 | Outpatient (REF) | payer MEDICARE, OTHER ==
[~2020-08-21] MED LIST changes: +BACTDSTA PO; -CEFUROXIME 1MG/0.1ML INTRACAMERAL INJ As Ordered ONE; -DUOVISC (0.50ML VISCOAT/0.55ML PROVISC) OPHTH KIT As Ordered ONE; +GABA-283 PO; -GABA-845 PO; -OFLOXACIN 0.3 % (OCUFLOX) OPTH SOL 5ML OS ONE; -PHENYLEPHRINE 2.5% OPHTH SOL 2ML OS ONE; -POVIDONE-IODINE 5% OPHTH PREP SOL 30ML As Ordered ONE; -PROPARACAINE 0.5% OPHTH SOL 15ML OS ONE; -SULF1TAB93 PO; -TROPICAMIDE 1% OPHTH SOLN 2ML OS ONE
[2020-08-21 19:05] LABS: PERCENT SATURATION 27.6 % (19.7-50.0)
== END ==
LOC: M LAB REF 17:16
PROVIDERS: ATTEND Internal Medicine
DX: D50.9 Iron deficiency anemia, unspecified (principal)